=== PATIENT | female | born 1960 | race Caucasian/White ===

== ENCOUNTER 2021-01-30 09:29 | Outpatient (CLI) | payer BC, SELFPAY ==
--- NOTE | 2021-01-30 09:32 | CT_ITS ---
WS: [id number] LDCT LUNG CANCER SCREENING TECHNIQUE: Noncontrast CT of the chest with coronal and sagittal reformatted images. CLINICAL INFORMATION: NICOTINE DEPENDENCE, CIGARETTES COMPARISON: None. DLP: 51.02 mGy.cm DIvol: 1.[address] scans at [facility] use at least one of these dose optimization techniques: automat ed exposure control; mA and/or kV adjustment per patient size (includes targeted exams where dose is matched to clinical indication); or iterative reconstruction. FINDINGS: Small 5 mm semisolid opacity right lower lobe along the fissure. 4 mm hazy opacity left upper lobe. 3 mm noncalcified nodule left upper lobe. Noncalcified nodule right upper lobe measuring 4 mm. No axil brad lymphadenopathy. No mediastinal or hilar lymphadenopathy. Adrenal glands are normal. Small low-a ttenuation lesion in right liver likely cyst or hemangioma measuring 12 mm but incompletely evaluated . This could be further evaluated with contrast-enhanced CT abdomen pelvis. CT/CT lung screening [id number] IMPRESSION: LUNG-RADS: 3-Probably Benign FOLLOW UP: 6 Month LDCT
== END 2021-01-30 09:30 | disposition home or self-care (01) ==
LOC: RAD 09:31
PROVIDERS: PCP Family Medicine; Visit Provider Family Medicine
DX: Z12.2 Encounter for screening for malignant neoplasm of respiratory organs (principal); F17.210 Nicotine dependence, cigarettes, uncomplicated
CPT/HCPCS: 71271

== ENCOUNTER 2021-06-03 10:40 | Outpatient (CLI) | payer BC, SELFPAY ==
--- NOTE | 2021-06-03 11:09 | XR_ITS ---
WS: [id number] SCREENING DEXA SCAN [employer] CLINICAL INFORMATION: POST MENOPAUSAL COMPARISON: FINDINGS: The L1-L4 bone mineral density measures 1.302 g/cm2. This corresponds to a T score score of 1.0 and Z score of 2.1. Left femoral neck bone mineral density measures 1.147 g/cm2. This corresponds to a T score of 1.1 and Z score of 1.9. Right femoral neck bone mineral density measures 1.153 g/cm2. This corresponds to a T score 1.2of and Z score of 2.0. Mean femoral neck bone mineral density measures 1.150 g/cm2. This corresponds to a T score of 1.1 and Z score of 2.0. XR/XR DEXA axial skeleton* [id number] IMPRESSION: Normal bone mineralization. Patient's FRAX calculated 10 year probability for major osteoporotic fracture i s 12.4 % and osteoporotic hip fracture is 0.3%.
== END 2021-06-03 10:41 | disposition home or self-care (01) ==
PROVIDERS: PCP Family Medicine; Visit Provider Family Medicine
DX: Z78.0 Asymptomatic menopausal state (principal)
CPT/HCPCS: 77080

== ENCOUNTER 2023-02-17 09:18 | Observation (INO) | payer BC, SELFPAY ==
[2023-02-17] VITALS (8 sets, daily range): BP systolic 117–176; BP diastolic 69–94; PULSE 86–100; RESP 16–18; TEMP 36.4–36.5; O2SAT 95–99; BMI 25.4; BMI 24.2
--- NOTE | 2023-02-17 09:25 | W.ED.GENADLT ---
Documented by User: JULIA Queen 02/17/23 13:20 HPI - General Adult General: Chief complaint: Airway/Esophagus Foreign Body Stated complaint: object lodged in throat Time Seen by Provider: 02/17/23 09:21 Source: patient and family (daughter) Mode of arrival: ambulatory Limitations: no limitations History of Present Illness: Patient is a nice 62-year-old female who presents to ED today along with her daughter for concerns that she has an Advil pill stuck in her throat. Daughter states her mother has had intermittent episodes of vomiting over the past week or so. She states her, herself, has had a productive cough over the past 5 weeks or so and states her mother has recently came down with a cough as well. She feels like some of her vomiting is posttussive. Patient confirms this. She feels like maybe she is getting choked/gagged on phlegm. Daughter states since Thursday/Thursday vomiting has worsened and she hasn't been able to keep much down. She states she overall is feeling very poor. She does not complain of abdominal pain. No changes in bowel movements. No fevers. This morning she states she took an Advil tablet and immediately felt like it got stuck in her throat. She is very anxious about the sensation of a pill being stuck. She has no shortness of breath or difficulty breathing. States she was able to drink some water following the pill ingestion. Patient takes many medications for anxiety and sleep. She recently lost her to metastatic colon cancer and has been struggling since then. She does admit to drinking in the evenings to help her sleep. Onset (ago): hour(s) Severity: moderate Relieving factors: none Exacerbating factors: other (swallowing) Associated symptoms: Reports vomiting; Deny chest pain, dyspnea, headache(s), malaise, nausea, rash, palpitations or syncope Review of Systems Const: Denies: fever(s), chills, body aches, fatigue or malaise Eyes: Denies: change in vision or blurry vision ENMT: Reports: other (feels like a pill is stuck in her throat); Denies: throat pain or odynophagia Card: Denies: chest pain, palpitations, irregular heart rhythm, lightheadedness, syncope or dyspnea on exertion Resp: Reports: non-productive cough, change in phlegm color and chest congestion; Denies: dyspnea, productive cough, wheezing, stridor, pain on inspiration or hemoptysis GI: Reports: vomiting; Denies: abdominal pain, nausea, heartburn, diarrhea, GI cramping, hematochezia or melena : Denies: dysuria Musc: Denies: neck pain, back pain, extremity pain, extremity swelling or joint pain Skin/Breast: Denies: rash Neuro: Denies: headache(s), numbness in extremities, weakness in extremities, sensory changes or dizziness PFSH ED PFSH: Medical History Colonoscopy planned 2020 Hyperlipidemia Sleep disturbance Anxiety Surgical History H/O lateral meniscus repair of right knee History of removal of ovarian cyst Family History Mother Stroke Father Heart disease Myocardial infarction Sister Breast cancer Social History Smoking and tobacco/nicotine status: current every day tobacco/nicotine user cigarettes Packs smoked per day: 0.5 Years cigarettes smoked: 20 Alcohol intake: current Alcohol intake frequency: 0-2 Drinks per Day Alcohol type: beer and hard liquor Alcohol use comment: 1 beer and 1 shot of tequila every night Substance/Drug Use: never Lives independently: Yes Marital status: / Physical Exam Const: COMMON NORMALS: no acute distress, average body habitus, patient oriented x3, no limitations, healthy appearing, alert and well nourished GENERAL APPEARANCE: cooperative and anxious ORIENTATION/CONSCIOUSNESS: Yes awake, Yes oriented to person, Yes oriented to place and Yes oriented to time HENMT: COMMON NORMALS: normocephalic and atraumatic HEAD & SCALP: normal to inspection, normocephalic and atraumatic FACE & SINUS: normal facial exam MOUTH: Normal oral and palatal mucosa present, lip normal, tongue normal and Normal salivary glands and ducts present THROAT: posterior oropharynx normal Eye: GENERAL EYE: appearance normal, both eyes and all related structures Neck/C-Spine: COMMON NORMALS: full ROM, no lymphadenopathy, supple and no meningeal signs Chest: COMMONS NORMALS: normal inspection of the chest Resp: COMMON NORMALS: normal respiratory effort and clear to auscultation bilaterally AUSCULTATION: clear to auscultation bilaterally Cardio: COMMON NORMALS: regular rate and regular rhythm RATE: regular rate RHYTHM: regular rhythm GI: COMMON NORMALS: Normal to inspection, nondistended, normoactive bowel sounds present, Soft to palpation, non-tender, No hepatosplenomegaly present and no masses PALPATION: Yes Soft to palpation and Yes No hepatosplenomegaly present Extremity: COMMON NORMALS: normal to inspection GENERAL: Yes normal exam except as noted Neuro: COMMON NORMALS: patient oriented x3 SENSORIUM/ORIENTATION: Yes alert, Yes oriented to person, Yes oriented to place and Yes oriented to time MENINGEAL SIGNS: Yes no meningeal signs Skin: COMMON NORMALS: no rashes or lesions noted GENERAL SKIN EXAM: no rashes or lesions noted Course Vital Signs: Vital signs: Vital Signs Temperature 97.9 F 02/18/23 11:34 Pulse Rate 67 02/18/23 11:34 Respiratory Rate 16 02/18/23 11:34 Blood Pressure 149/90 02/18/23 11:34 Pulse Oximetry 98 02/18/23 11:34 Oxygen Delivery Me thod Room Air 02/18/23 03:27 [facility] - General Adult Medical Decision Making Patient is a nice 62-year-old female who initially presented with a concern of a pill stuck in her throat. No pill visualized on plain films. She was given IV medications and was drinking normally following this. She still has a mild foreign body sensation in her throat but no obstruction. Labs obtained given the history of nausea and vomiting over the past week. Labs showing thrombocytopenia, hyponatremia, metabolic acidosis with a gap of 32.5, and transaminitis. Patient will need to be admitted for further workup of these. She does admit to drinking in the evenings to help her sleep. She tells me she will have approximately a beer and a shot of hard liquor every night prior to bed. Patient is very anxious and I took a considerable amount of time trying to convince her to stay in the hospital. She reluctantly agrees at this time. I spoken to Dr. Schofield I spoke to Dr. Wiggins for admission. Lab Data 02/18/23 06:06 02/18/23 06:06 Radiology Impressions Chest X-Ray 02/17/23 09:32 IMPRESSION: No acute findings. Soft Tissue Neck X-Ray 02/17/23 10:42 IMPRESSION: 1. No acute findings. No retained radiopaque foreign body visualized along the imaged aerodigestive tract. 2. Moderate to severe multilevel cervical spine degenerative changes mildly progressed from April 2017. Laboratory Results WBC 12.74 10^3/uL (3.29-11.43) H 02/17/23 09:54 RBC 4.05 10^6/uL (3.85-5.65) 02/17/23 09:54 Hgb 14.40 g/dL (11.27-16.99) 02/17/23 09:54 Hct 39.4 % (36-47) 02/17/23 09:54 MCV 97.3 fl (85-98) 02/17/23 09:54 MCH 35.6 pg (27-33) H 02/17/23 09:54 MCHC 36.5 g/dL (30-55) 02/17/23 09:54 RDW 13.0 % (12.1-15.1) 02/17/23 09:54 Plt Count 120 10^3/cmm (157-399) L 02/17/23 09:54 MPV 10.9 fL (7.4-10.4) H 02/17/23 09:54 Neut % (Auto) 86.0 % 02/17/23 09:54 Lymph % (Auto) 3.8 % 02/17/23 09:54 [place] % (Auto) 9.7 % 02/17/23 09:54 Eos % (Auto) 0.0 % 02/17/23 09:54 Baso % (Auto) 0.2 % 02/17/23 09:54 Neut # (Auto) 10.96 10^3/uL (1.8-7.7) H 02/17/23 09:54 Lymph # (Auto) 0.5 10^3/uL (0.8-4.8) L 02/17/23 09:54 [place] # (Auto) 1.2 10^3/uL (0.2-0.9) H 02/17/23 09:54 Eos # (Auto) 0.0 10^3/uL (0.0-0.8) 02/17/23 09:54 Baso # (Auto) 0.0 10^3/uL (0.0-0.1) 02/17/23 09:54 Nucleated RBC % (auto) 0 % 02/17/23 09:54 Nucleated RBCs # 0.0 /100WBC 02/17/23 09:54 PT 12.30 SECONDS (12.1-14.9) 02/17/23 09:54 INR 0.89 (0.8-1.2) 02/17/23 09:54 APTT 23.3 SECONDS (23.9-36.7) L 02/17/23 09:54 Sodium 122 mmol/L (136-145) L 02/17/23 09:54 Potassium 3.5 mmol/L (3.5-5.1) 02/17/23 09:54 Chloride 75 mmol/L (98-107) L 02/17/23 09:54 Carbon Dioxide 18 mmol/L (22-29) L 02/17/23 09:54 Anion Gap 32.5 (5-19) H 02/17/23 09:54 BUN 5 mg/dL (8-23) L 02/17/23 09:54 Creatinine 0.7 mg/dL (0.5-0.9) 02/17/23 09:54 GFR Calculation 84.2 mL/min (90-130) L 02/17/23 09:54 Glucose 173 mg/dL (65-115) H 02/17/23 09:54 Calculated Osmolality 255 mOsm/kg (285-295) L 02/17/23 09:54 Calcium 9.4 mg/dL (8.5-10.5) 02/17/23 09:54 Magnesium 1.5 mg/dL (1.7-2.3) L 02/17/23 09:54 Total Bilirubin 1.4 mg/dL (0.15-1.2) H 02/17/23 09:54 AST 106 U/L (0-32) H 02/17/23 09:54 ALT 154 U/L (0-33) H 02/17/23 09:54 Alkaline Phosphatase 111 U/L (35-105) H 02/17/23 09:54 Ammonia 28 umol/L (11-51) 02/17/23 11:10 Total Protein 7.1 g/dL (6.6-8.7) 02/17/23 09:54 Albumin 4.7 g/dL (3.5-5.2) 02/17/23 09:54 Globulin 2.4 g/dL (1.3-4.6) 02/17/23 09:54 Lipase 19 U/L (13-60) 02/17/23 09:54 TSH 1.13 uIU/mL (0.27-4.20) 02/17/23 09:54 Urine Color Yellow (Yellow) 02/17/23 10:41 Urine Appearance Clear (CLEAR) 02/17/23 10:41 Urine pH 5 (5-7) 02/17/23 10:41 Ur Specific [place] 1.020 (1.005-1.030) 02/17/23 10:41 Urine Protein 1+ (Negative) H 02/17/23 10:41 Urine Glucose (UA) Norm (Normal) 02/17/23 10:41 Urine Ketones 3+ (Negative) H 02/17/23 10:41 Urine Blood 3+ (Negative) H 02/17/23 10:41 Urine Nitrate Negative (Negative) 02/17/23 10:41 Urine Bilirubin Neg (Negative) 02/17/23 10:41 Urine Urobilinogen Norm mg/dL (Negative) 02/17/23 10:41 Ur Leukocyte Esterase Negative (Negative) 02/17/23 10:41 Urine RBC 5-10 /hpf (0-2) H 02/17/23 10:41 Urine WBC None /hpf (0-5) 02/17/23 10:41 Ur Squamous Epith Cells 0-4 /hpf (0-5) H 02/17/23 10:41 Amorphous Sediment Not Reportable 02/17/23 10:41 Urine Bacteria None /hpf (NONE) 02/17/23 10:41 Hyaline Casts 0-4 /lpf H 02/17/23 10:41 Fine Granular Casts 0-4 /lpf H 02/17/23 10:41 Urine Mucus None /hpf 02/17/23 10:41 Urine Yeast Trace /hpf 02/17/23 10:41 Nasal Influ A H1 2008 PCR Not detected (NOT DETECT) 02/17/23 10:35 Salicylates < 0.3 mg/dL (3-10) L 02/17/23 09:54 Urine Opiates Screen Negative ng/mL (Negative) 02/17/23 10:41 Acetaminophen < 5.0 ug/mL (10-30) L 02/17/23 09:54 Ur Barbiturates Screen Negative ng/mL (Negative) 02/17/23 10:41 Ur Phencyclidine Scrn Negative ng/mL (Negative) 02/17/23 10:41 Ur Amphetamines Screen Negative ng/mL (Negative) 02/17/23 10:41 U Benzodiazepines Scrn Positive ng/mL (Negative) H 02/17/23 10:41 Urine Cocaine Screen Negative ng/mL (Negative) 02/17/23 10:41 U Marijuana (THC) Screen Negative ng/mL (Negative) 02/17/23 10:41 Ethyl Alcohol < 10 mg/dL (0-10) 02/17/23 09:54 Adenovirus (PCR) Not detected (NOT DETECT) 02/17/23 10:35 C. pneumoniae DNA (PCR) Not detected (NOT DETECT) 02/17/23 10:35 Coronavirus 229E (PCR) Not detected (NOT DETECT) 02/17/23 10:35 Hepatitis A IgM Ab Non-reactive (Nonreactive) 02/17/23 09:54 Hep Bs Antigen Non-reactive (Nonreactive) 02/17/23 09:54 Hep B Core IgM Ab Non-reactive (Nonreactive) 02/17/23 09:54 Hepatitis C Antibody Non-reactive (Nonreactive) 02/17/23 09:54 Human Metapneumovir PCR Not detected (NOT DETECT) 02/17/23 10:35 Influenza A (H1) PCR Not detected (NOT DETECT) 02/17/23 10:35 Influenza A (H3) PCR Not detected (NOT DETECT) 02/17/23 10:35 Influenza Type A (PCR) Not detected (NOT DETECT) 02/17/23 10:35 Influenza Type B (PCR) Not detected (NOT DETECT) 02/17/23 10:35 M. pneumoniae (PCR) Not detected (NOT DETECT) 02/17/23 10:35 Parainfluenza 1 (PCR) Not detected (NOT DETECT) 02/17/23 10:35 Parainfluenza 2 (PCR) Not detected (NOT DETECT) 02/17/23 10:35 Parainfluenza 3 (PCR) Not detected (NOT DETECT) 02/17/23 10:35 Parainfluenza 4 (PCR) Not detected (NOT DETECT) 02/17/23 10:35 RSV Type A (PCR) Not detected (NOT DETECT) 02/17/23 10:35 RSV Type B (PCR) Not detected (NOT DETECT) 02/17/23 10:35 Entero/Rhino (PCR) Not detected (NOT DETECT) 02/17/23 10:35 SARS-CoV-2 (PCR) Not detected (NOT DETECT) 02/17/23 10:35 SARS-CoV-2 Ag (Rapid) negative (Negative) 02/17/23 10:47 All radiology interpretation(s) finalized by discharge Discharge Plan Discharge Patient Disposition: Admitted As Inpatient Admit Provider: Víctor Wiggins Clinical Impression: Metabolic acidosis, Acute hyponatremia, Abnormal transaminases, Thrombocytopenia Condition: Stable Discharge Diet: Regular Discharge Activity: Increase activity as tolerated Coding Level of Care Code ED Bakery Assistant for Chg Fwd Documented by User: Gumaro Schofield DO 02/20/23 07:53 HPI - General Adult General: Chief complaint: Airway/Esophagus Foreign Body Stated complaint: object lodged in throat Time Seen by Provider: 02/17/23 09:21 [facility] PFSH: Medical History Colonoscopy planned 2020 Hyperlipidemia Sleep disturbance Anxiety Surgical History H/O lateral meniscus repair of right knee History of removal of ovarian cyst Family History Mother Stroke Father Heart disease Myocardial infarction Sister Breast cancer Social History Smoking and tobacco/nicotine status: current every day tobacco/nicotine user cigarettes Packs smoked per day: 0.5 Years cigarettes smoked: 20 Alcohol intake: current Alcohol intake frequency: 0-2 Drinks per Day Alcohol type: beer and hard liquor Alcohol use comment: 1 beer and 1 shot of tequila every night Substance/Drug Use: never Lives independently: Yes Marital status: / Course Vital Signs: Vital signs: Vital Signs Temperature 97.9 F 02/18/23 11:34 Pulse Rate 67 02/18/23 11:34 Respiratory Rate 16 02/18/23 11:34 Blood Pressure 149/90 02/18/23 11:34 Pulse Oximetry 98 02/18/23 11:34 Oxygen Delivery Me thod Room Air 02/18/23 03:27 MDM - General Adult Medical Decision Making Patient is a nice 62-year-old female who initially presented with a concern of a pill stuck in her throat. No pill visualized on plain films. She was given IV medications and was drinking normally following this. She still has a mild foreign body sensation in her throat but no obstruction. Labs obtained given the history of nausea and vomiting over the past week. Labs showing thrombocytopenia, hyponatremia, metabolic acidosis with a gap of 32.5, and transaminitis. Patient will need to be admitted for further workup of these. She does admit to drinking in the evenings to help her sleep. She tells me she will have approximately a beer and a shot of hard liquor every night prior to bed. Patient is very anxious and I took a considerable amount of time trying to convince her to stay in the hospital. She reluctantly agrees at this time. I spoken to Dr. Schofield I spoke to Dr. Wiggins for admission. Chart reviewed and patient discussed with midlevel. Agree with assessment and plan. Reviewed chart discussed with Ene Pride and with Dr. Worthy orders written for admission. Medical Records I reviewed the patient's medical records. Lab Data I reviewed the patient's lab results. 02/18/23 06:06 02/18/23 06:06 Radiology Impressions Chest X-Ray 02/17/23 09:32 IMPRESSION: No acute findings. Soft Tissue Neck X-Ray 02/17/23 10:42 IMPRESSION: 1. No acute findings. No retained radiopaque foreign body visualized along the imaged aerodigestive tract. 2. Moderate to severe multilevel cervical spine degenerative changes mildly progressed from April 2017. Laboratory Results WBC 12.74 10^3/uL (3.29-11.43) H 02/17/23 09:54 RBC 4.05 10^6/uL (3.85-5.65) 02/17/23 09:54 Hgb 14.40 g/dL (11.27-16.99) 02/17/23 09:54 Hct 39.4 % (36-47) 02/17/23 09:54 MCV 97.3 fl (85-98) 02/17/23 09:54 MCH 35.6 pg (27-33) H 02/17/23 09:54 MCHC 36.5 g/dL (30-55) 02/17/23 09:54 RDW 13.0 % (12.1-15.1) 02/17/23 09:54 Plt Count 120 10^3/cmm (157-399) L 02/17/23 09:54 MPV 10.9 fL (7.4-10.4) H 02/17/23 09:54 Neut % (Auto) 86.0 % 02/17/23 09:54 Lymph % (Auto) 3.8 % 02/17/23 09:54 [place] % (Auto) 9.7 % 02/17/23 09:54 Eos % (Auto) 0.0 % 02/17/23 09:54 Baso % (Auto) 0.2 % 02/17/23 09:54 Neut # (Auto) 10.96 10^3/uL (1.8-7.7) H 02/17/23 09:54 Lymph # (Auto) 0.5 10^3/uL (0.8-4.8) L 02/17/23 09:54 [place] # (Auto) 1.2 10^3/uL (0.2-0.9) H 02/17/23 09:54 Eos # (Auto) 0.0 10^3/uL (0.0-0.8) 02/17/23 09:54 Baso # (Auto) 0.0 10^3/uL (0.0-0.1) 02/17/23 09:54 Nucleated RBC % (auto) 0 % 02/17/23 09:54 Nucleated RBCs # 0.0 /100WBC 02/17/23 09:54 PT 12.30 SECONDS (12.1-14.9) 02/17/23 09:54 INR 0.89 (0.8-1.2) 02/17/23 09:54 APTT 23.3 SECONDS (23.9-36.7) L 02/17/23 09:54 Sodium 122 mmol/L (136-145) L 02/17/23 09:54 Potassium 3.5 mmol/L (3.5-5.1) 02/17/23 09:54 Chloride 75 mmol/L (98-107) L 02/17/23 09:54 Carbon Dioxide 18 mmol/L (22-29) L 02/17/23 09:54 Anion Gap 32.5 (5-19) H 02/17/23 09:54 BUN 5 mg/dL (8-23) L 02/17/23 09:54 Creatinine 0.7 mg/dL (0.5-0.9) 02/17/23 09:54 GFR Calculation 84.2 mL/min (90-130) L 02/17/23 09:54 Glucose 173 mg/dL (65-115) H 02/17/23 09:54 Calculated Osmolality 255 mOsm/kg (285-295) L 02/17/23 09:54 Calcium 9.4 mg/dL (8.5-10.5) 02/17/23 09:54 Magnesium 1.5 mg/dL (1.7-2.3) L 02/17/23 09:54 Total Bilirubin 1.4 mg/dL (0.15-1.2) H 02/17/23 09:54 AST 106 U/L (0-32) H 02/17/23 09:54 ALT 154 U/L (0-33) H 02/17/23 09:54 Alkaline Phosphatase 111 U/L (35-105) H 02/17/23 09:54 Ammonia 28 umol/L (11-51) 02/17/23 11:10 Total Protein 7.1 g/dL (6.6-8.7) 02/17/23 09:54 Albumin 4.7 g/dL (3.5-5.2) 02/17/23 09:54 Globulin 2.4 g/dL (1.3-4.6) 02/17/23 09:54 Lipase 19 U/L (13-60) 02/17/23 09:54 TSH 1.13 uIU/mL (0.27-4.20) 02/17/23 09:54 Urine Color Yellow (Yellow) 02/17/23 10:41 Urine Appearance Clear (CLEAR) 02/17/23 10:41 Urine pH 5 (5-7) 02/17/23 10:41 Ur Specific [place] 1.020 (1.005-1.030) 02/17/23 10:41 Urine Protein 1+ (Negative) H 02/17/23 10:41 Urine Glucose (UA) Norm (Normal) 02/17/23 10:41 Urine Ketones 3+ (Negative) H 02/17/23 10:41 Urine Blood 3+ (Negative) H 02/17/23 10:41 Urine Nitrate Negative (Negative) 02/17/23 10:41 Urine Bilirubin Neg (Negative) 02/17/23 10:41 Urine Urobilinogen Norm mg/dL (Negative) 02/17/23 10:41 Ur Leukocyte Esterase Negative (Negative) 02/17/23 10:41 Urine RBC 5-10 /hpf (0-2) H 02/17/23 10:41 Urine WBC None /hpf (0-5) 02/17/23 10:41 Ur Squamous Epith Cells 0-4 /hpf (0-5) H 02/17/23 10:41 Amorphous Sediment Not Reportable 02/17/23 10:41 Urine Bacteria None /hpf (NONE) 02/17/23 10:41 Hyaline Casts 0-4 /lpf H 02/17/23 10:41 Fine Granular Casts 0-4 /lpf H 02/17/23 10:41 Urine Mucus None /hpf 02/17/23 10:41 Urine Yeast Trace /hpf 02/17/23 10:41 Nasal Influ A H1 2008 PCR Not detected (NOT DETECT) 02/17/23 10:35 Salicylates < 0.3 mg/dL (3-10) L 02/17/23 09:54 Urine Opiates Screen Negative ng/mL (Negative) 02/17/23 10:41 Acetaminophen < 5.0 ug/mL (10-30) L 02/17/23 09:54 Ur Barbiturates Screen Negative ng/mL (Negative) 02/17/23 10:41 Ur Phencyclidine Scrn Negative ng/mL (Negative) 02/17/23 10:41 Ur Amphetamines Screen Negative ng/mL (Negative) 02/17/23 10:41 U Benzodiazepines Scrn Positive ng/mL (Negative) H 02/17/23 10:41 Urine Cocaine Screen Negative ng/mL (Negative) 02/17/23 10:41 U Marijuana (THC) Screen Negative ng/mL (Negative) 02/17/23 10:41 Ethyl Alcohol < 10 mg/dL (0-10) 02/17/23 09:54 Adenovirus (PCR) Not detected (NOT DETECT) 02/17/23 10:35 C. pneumoniae DNA (PCR) Not detected (NOT DETECT) 02/17/23 10:35 Coronavirus 229E (PCR) Not detected (NOT DETECT) 02/17/23 10:35 Hepatitis A IgM Ab Non-reactive (Nonreactive) 02/17/23 09:54 Hep Bs Antigen Non-reactive (Nonreactive) 02/17/23 09:54 Hep B Core IgM Ab Non-reactive (Nonreactive) 02/17/23 09:54 Hepatitis C Antibody Non-reactive (Nonreactive) 02/17/23 09:54 Human Metapneumovir PCR Not detected (NOT DETECT) 02/17/23 10:35 Influenza A (H1) PCR Not detected (NOT DETECT) 02/17/23 10:35 Influenza A (H3) PCR Not detected (NOT DETECT) 02/17/23 10:35 Influenza Type A (PCR) Not detected (NOT DETECT) 02/17/23 10:35 Influenza Type B (PCR) Not detected (NOT DETECT) 02/17/23 10:35 M. pneumoniae (PCR) Not detected (NOT DETECT) 02/17/23 10:35 Parainfluenza 1 (PCR) Not detected (NOT DETECT) 02/17/23 10:35 Parainfluenza 2 (PCR) Not detected (NOT DETECT) 02/17/23 10:35 Parainfluenza 3 (PCR) Not detected (NOT DETECT) 02/17/23 10:35 Parainfluenza 4 (PCR) Not detected (NOT DETECT) 02/17/23 10:35 RSV Type A (PCR) Not detected (NOT DETECT) 02/17/23 10:35 RSV Type B (PCR) Not detected (NOT DETECT) 02/17/23 10:35 Entero/Rhino (PCR) Not detected (NOT DETECT) 02/17/23 10:35 SARS-CoV-2 (PCR) Not detected (NOT DETECT) 02/17/23 10:35 SARS-CoV-2 Ag (Rapid) negative (Negative) 02/17/23 10:47 Discharge Plan Discharge Patient Disposition: Admitted As Inpatient Admit Provider: Víctor Wiggins Clinical Impression: Metabolic acidosis, Acute hyponatremia, Abnormal transaminases, Thrombocytopenia Condition: Stable Discharge Diet: Regular Discharge Activity: Increase activity as tolerated Coding Level of Care Code ED Bakery Assistant for Hitesh Yuan
--- NOTE | 2023-02-17 09:32 | XRR_ITS ---
PROCEDURE INFORMATION: Exam: XR Chest Exam date and time: 02/17/2023 9:52 AM Age: 62 years old Clinical indication: Cough TECHNIQUE: Imaging protocol: Radiologic exam of the chest. Views: 1 view. COMPARISON: CT lung screening [id number] 01/30/2021 9:41 AM FINDINGS: Lungs: Unremarkable. No consolidation. Pleural spaces: Unremarkable. No pleural effusion. No pneumothorax. Heart/Mediastinum: Unremarkable. No cardiomegaly. Bones/joints: Mild degenerative changes along the spine and shoulders. XR/XR chest 1V portable [id number] IMPRESSION: No acute findings.
[2023-02-17] MEDS: ondansetron 2 mg/ML SDV 2 mL 4 MG IVP (10:05)
[2023-02-17] MEDS: sodium chloride 0.9% 1,000 ML 999 ML IV (10:05)
[2023-02-17 10:09] LABS: Basophils % 0.2 %; Hematocrit 39.4 % (36-47); Lymphocytes # 0.5 10^3/uL (0.8-4.8); Lymphocytes % 3.8 %; Mean Corpuscular HGB Conc 36.5 g/dL (30-55); Mean Corpuscular Hemoglobin 35.6 pg (27-33); Mean Corpuscular Volume 97.3 fl (85-98); Mean Platelet Volume 10.9 fL (7.4-10.4); Monocytes # 1.2 10^3/uL (0.2-0.9); Monocytes % 9.7 %; Neutrophils # 10.96 10^3/uL (1.8-7.7); Nucleated Red Blood Cells % 0 %; Platelet Count 120 10^3/cmm (157-399); Red Blood Count 4.05 10^6/uL (3.85-5.65); White Blood Count 12.74 10^3/uL (3.29-11.43)
[2023-02-17] MEDS: LORazepam 2 mg/mL INJ 1 mL 1 MG IVP ×2 (10:10→11:58)
[2023-02-17] MEDS: glucagon 1 mg/mL KIT 1 mL IVP (10:13)
[2023-02-17 10:25] LABS: Alanine Aminotransferase 154 U/L (0-33); Albumin Level 4.7 g/dL (3.5-5.2); Alkaline Phosphatase 111 U/L (35-105); Anion Gap 32.5 (5-19); Aspartate Amino Transferase 106 U/L (0-32); Blood Urea Nitrogen 5 mg/dL (8-23); Calcium 9.4 mg/dL (8.5-10.5); Carbon Dioxide 18 mmol/L (22-29); Chloride 75 mmol/L (98-107); Globulin 2.4 g/dL (1.3-4.6); Glomerular Filtration Rate 84.2 mL/min (90-130); Glucose 173 mg/dL (65-115); Osmolality Calculated 255 mOsm/kg (285-295); Potassium 3.5 mmol/L (3.5-5.1); Sodium 122 mmol/L (136-145); Total Bilirubin 1.4 mg/dL (0.15-1.2); Total Protein 7.1 g/dL (6.6-8.7)
--- NOTE | 2023-02-17 10:42 | XRR_ITS ---
PROCEDURE INFORMATION: Exam: XR Soft Tissue Neck Exam date and time: 02/17/2023 10:55 AM Age: 62 years old Clinical indication: Screening exam; Other; Pill stuck in throat TECHNIQUE: Imaging protocol: Radiologic exam of the soft tissues of the neck. COMPARISON: 1. CR XR cervical spine 4-5V [id number] 04/23/2017 10:51 AM 2. CR XR chest 1V portable [id number] 02/17/2023 9:52 AM FINDINGS: Airway: Unremarkable. No abnormal narrowing. Soft tissues: Unremarkable. Normal epiglottis. Precervical soft tissues are unremarkable. No retained radiopaque foreign body visualized along the imaged aerodigestive tract. Bones/joints: Moderate to severe multilevel cervical spine degenerative changes. XR/XR soft tissue neck [id number] IMPRESSION: 1. No acute findings. No retained radiopaque foreign body visualized along the imaged aerodigestive tract. 2. Moderate to severe multilevel cervical spine degenerative changes mildly progressed from April 2017.
--- NOTE | 2023-02-17 11:02 | CT_ITS ---
WS: [id number] CT ABDOMEN AND PELVIS NONCONTRAST HISTORY: Abdominal pain TECHNIQUE: Imaging performed through the abdomen and pelvis. Coronal and sagittal reformats are submi tted. All CT scans at [facility] use at least one of these dose optimization techniques: auto mated exposure control; mA and/or kV adjustment per patient size (includes targeted exams where dose is matched to clinical indication); or iterative reconstruction. DLP: 339.04 mGy.cm COMPARISON: None available. Lower thorax: Emphysema at the lung bases. Normal size heart. Moderate hiatal hernia. Liver: Enlarged liver with marked low-attenuation from hepatic steatosis. No bile duct dilatation. Gallbladder: Normal gallbladder. No pericholecystic fluid or cholelithiasis. No gallbladder wall thic kening. Pancreas: Normal size and attenuation. Normal pancreatic duct. No pancreatitis or mass. Spleen: Normal. Adrenal glands: Normal. No mass. Right kidney: Normal size kidney with no mass or hydronephrosis. Left kidney: Normal size kidney with no mass or hydronephrosis. Aorta: Mild atherosclerosis aorta. No free fluid, intraperitoneal air or significant lymphadenopathy. GI tract: Marked distention of the stomach with fluid. There is minimal fluid distention of the small bowel. No obstructive pattern. The appendix is normal. No evidence for acute diverticulitis. Abdominal wall: Negative. No hernia. Pelvis: No free fluid in the pelvis. Urinary bladder is negative. Osseous structures: Thoracolumbar scoliosis and curvature. IMPRESSION: 1. Marked fluid distention of the stomach. Lesser amount of fluid distention of the small bowel. No obstructive pattern. Consider gastroenteritis. 2. Hepatomegaly and marked hepatic steatosis. 3. No ascites or free air.
[2023-02-17 11:06] LABS: Acetaminophen < 5.0 ug/mL (10-30); Alcohol Level < 10 mg/dL (0-10); Salicylate < 0.3 mg/dL (3-10)
[2023-02-17 11:09] LABS: INR 0.89 (0.8-1.2)
[2023-02-17 11:10] LABS: Partial Thromboplastin Time 23.3 SECONDS (23.9-36.7)
[2023-02-17 11:10] LABS: Amphetamines Screen Urine Negative (Negative); Barbiturates Screen Urine Negative (Negative); Benzodiazepines Screen Urine Positive (Negative); Cocaine Screen Urine Negative (Negative); Opiate Screen Urine Negative (Negative); PCP Screen Urine Negative (Negative); THC Screen Urine Negative (Negative)
[2023-02-17 11:13] LABS: Lipase 19 U/L (13-60)
[2023-02-17 11:14] LABS: SARS Covid-2 Antigen negative (Negative)
[2023-02-17 11:26] LABS: Add Urine Microscopic? YES; Bilirubin Urine Neg (Negative); Blood Urine 3+ (Negative); Glucose Urine UA Norm (Normal); Ketones Urine 3+ (Negative); Leukocyte Esterase Urine Negative (Negative); Nitrate Urine Negative (Negative); Protein Urine 1+ (Negative); Urine Appearance Clear (CLEAR); Urine Color Yellow (Yellow); Urobilinogen Urine Norm (Negative); pH Urine 5 (5-7)
[2023-02-17 11:30] LABS: Add Urine Culture? Yes; Fine Granular Casts Urine 0-4 /lpf; Hyaline Casts Urine 0-4 /lpf; Squamous Epithelial Cell Urine 0-4 /hpf (0-5)
[2023-02-17 11:40] LABS: Ammonia 28 umol/L (11-51)
[2023-02-17] MEDS: nicotine 21 mg Patch 1 PATCH TRANSDERMA (11:58)
--- NOTE | 2023-02-17 12:07 | P.HP_ITS ---
Documented by User: Emeterio Botellobernabe 02/17/23 12:41 Providers/Chief Complaint 2 Admitting Physician: Víctor Wiggins MD hospitalist Primary Care Provider: Davey Scott MD Chief Complaint: object lodged in throat History of Present Illness Patient is a 62-year-old female with a past medical history of anxiety, sleep disturbance, hyperlipidemia who presents the emergency room with object lodged in throat. Patient will be admitted to the hospital for further medical management of transaminitis, metabolic acidosis, acute hyponatremia, and potential alcohol withdrawal Patient reports that she took an Advil last night and reports that it was lodged in her throat. She was able to drink some water post ingestion of pill but continues to cough. States that she went to bed and continued to feel the Advil this morning lodged. After further evaluation by ER practitioner, patient reported that she has been having nausea and vomiting for the past 1-2 weeks and has also been choking and gagging on phlegm. Patient reports a productive cough for the past 5 weeks but reports clear sputum production. She denies any fevers, chest pain, abdominal pain. Does state that she has dizziness while standing that started today. States that she is unable to keep food or liquids down at this time due to nausea and vomiting and increased phlegm production. Also reports that she just does not feel hungry. She does report some nasal congestion but no headache at this time she has no pain generalized throughout. Does report that she drinks 1 beer and 1 shot of tequila every night to help me feel better and sleep better. Also reports severe/increased anxiety being at this particular hospital due to recent passing of her back in October 2022, as this is a major stressor for her. Denies SI/HI. While in the emergency room, chest x-ray revealed no acute findings. Soft tissue neck x-ray revealed no acute findings or foreign body visualized. Patient received 1 L normal saline bolus, 1 mg Ativan IV push for increased anxiety, Zofran 4 mg IV push, nicotine 21 mg patch. Due to concerns for transaminitis, metabolic acidosis, anxiety, acute hyponatremia, patient will be admitted for IV medications and further supportive care measures. Review of Systems 2 Narrative: Comprehensive 10 point ROS is negative except as noted in the corresponding HPI. Card: Denies: chest pain or palpitations Resp: Reports: productive cough; Denies: dyspnea, wheezing, hemoptysis or chest congestion GI: Reports: nausea and vomiting; Denies: abdominal pain or hematemesis Psych: Reports: anxiety and depression Medications/Allergies Home Medications Medication Instructions Recorded Confirmed Last Taken Type alprazolam 1 mg tablet 1 mg PO BID 02/17/23 02/17/23 Unknown History escitalopram oxalate 20 mg tablet 20 mg PO QAM 02/17/23 02/17/23 Unknown History ibuprofen 200 mg tablet 200 mg PO Q6H PRN Pain 02/17/23 02/17/23 02/16/23 History rosuvastatin 10 mg tablet 10 mg PO QAM 02/17/23 02/17/23 02/15/23 History zolpidem 10 mg tablet 10 mg PO BEDTIME 02/17/23 02/17/23 Unknown History Allergies Allergy/AdvReac Type Severity Reaction Status Date / Time No Known Allergies Allergy Verified 02/17/23 10:30 PFSH Acute 2 PFSH: Medical History Colonoscopy planned 2020 Hyperlipidemia Sleep disturbance Anxiety Surgical History H/O lateral meniscus repair of right knee History of removal of ovarian cyst Family History Mother Stroke Father Heart disease Myocardial infarction Sister Breast cancer Social History Smoking and tobacco/nicotine status: current every day tobacco/nicotine user cigarettes Packs smoked per day: 0.5 Years cigarettes smoked: 20 Alcohol intake: current Alcohol intake frequency: 0-2 Drinks per Day Alcohol type: beer and hard liquor Alcohol use comment: 1 beer and 1 shot of tequila every night Substance/Drug Use: never Lives independently: Yes Marital status: / Vitals/I&O/Wt Last Vital Signs Pulse 93 02/17/23 12:04 Resp 16 02/17/23 12:04 BP 151/84 02/17/23 12:04 Pulse Ox 97 02/17/23 12:04 O2 Del Method Room Air 02/17/23 12:04 02/16/23 02/17/23 02/17/23 22:59 06:59 14:59 Intake Total 1000 / 1000 Balance 1000 / 1000 Weight last 48 hrs Weight 58.967 kg Physical Exam 2 Narrative: General: Alert, able to answer questions appropriately, anxious Neck: Supple Lymph: No lymphadenopathy noted Chest: Normal upon inspection Respiratory: No acute distress, respirations even, lung sounds clear throughout Cardiac: RRR, no murmurs, peripheral pulses 2+ radial and dorsalis pedis. GI abdomen soft, nontender on palpation, active bowel sounds throughout deferred Extremity trace edema to lower extremity. Psych: Anxious, somewhat tearful, increase stressors about hospitalization, not homicidal or suicidal at this time. Neuro: Alert oriented x 4 Data 02/17/23 09:54 02/17/23 09:54 Other Labs: WBC 12.47 platelet count 120, sodium 122, chloride 75, anion gap 32.5, T. bili 1.4, AST 106, ALT 154, alk phos 111, Urine unremarkable Positive for benzos CXR: My impression: Per my interpretation, no acute findings Radiologist's impression: No acute findings Other Imaging: My impression: Per my interpretation no acute findings, or foreign objects Radiologist's impression: No acute findings or foreign objects. A&P Assessment and plan (1) Acute hyponatremia: Potentially caused from electrolyte abnormalities of alcohol abuse or recent nausea/vomiting. NS IV at 100 mL/hr. Replace electrolytes as needed. Will recheck BMP this afternoon. CBC, BMP, magnesium in AM. (2) Transaminitis: Most likely due to alcohol intake of 1 beer and 1 shot of tequila per patient per night. Will assess his CT abdomen pelvis without contrast STAT. TSH and acute hepatitis panel pending. Magnesium pending. CBC, CMP, Mag in am. (3) Metabolic acidosis: Most likely due to increased nausea and vomiting at home. Continue to monitor a.m. labs CBC, CMP, mag in a.m. (4) Thrombocytopenia: Platelet count 122. Daily monitoring with CBC. (5) Alcohol withdrawal: As per #2 CICT protocol (6) Tobacco abuse: Cessation discussed A nicotine transdermal patch Plan Plan as stated above. Awaiting results of CT abdomen and pelvis. Awaiting results of TSH and acute hepatitis panel. Will place patient on [facility] protocol for potential alcohol withdrawal symptoms. Patient will receive nicotine patch for tobacco withdrawal. Monitor CBC and CMP and mag in AM. Normal saline at 100 mL/h. DVT prophylaxis: PPI prophylaxis: Protonix IV every 12 hours CODE STATUS: In the event that patient cannot make decisions for herself, Cheryle (daughter), will make decisions for her. Coding Level of Care Code 00031 Diagnoses Acute hyponatremia E87.1 Transaminitis R74.01 Metabolic acidosis E87.20 Thrombocytopenia D69.6 Alcohol withdrawal F10.939 Tobacco abuse Z72.0 Time Spent (min) 50 Documented by User: Víctor Wiggins MD 02/17/23 12:57 Providers/Chief Complaint 2 Chief Complaint: object lodged in throat Medications/Allergies Home Medications Medication Instructions Recorded Confirmed Last Taken Type alprazolam 1 mg tablet 1 mg PO BID 02/17/23 02/17/23 Unknown History escitalopram oxalate 20 mg tablet 20 mg PO QAM 02/17/23 02/17/23 Unknown History ibuprofen 200 mg tablet 200 mg PO Q6H PRN Pain 02/17/23 02/17/23 02/16/23 History rosuvastatin 10 mg tablet 10 mg PO QAM 02/17/23 02/17/23 02/15/23 History zolpidem 10 mg tablet 10 mg PO BEDTIME 02/17/23 02/17/23 Unknown History Allergies Allergy/AdvReac Type Severity Reaction Status Date / Time No Known Allergies Allergy Verified 02/17/23 10:30 PFSH Acute 2 PFSH: Medical History Colonoscopy planned 2020 Hyperlipidemia Sleep disturbance Anxiety Surgical History H/O lateral meniscus repair of right knee History of removal of ovarian cyst Family History Mother Stroke Father Heart disease Myocardial infarction Sister Breast cancer Social History Smoking and tobacco/nicotine status: current every day tobacco/nicotine user cigarettes Packs smoked per day: 0.5 Years cigarettes smoked: 20 Alcohol intake: current Alcohol intake frequency: 0-2 Drinks per Day Alcohol type: beer and hard liquor Alcohol use comment: 1 beer and 1 shot of tequila every night Substance/Drug Use: never Lives independently: Yes Marital status: / Data 02/17/23 09:54 02/17/23 09:54 A&P Assessment and plan (1) Acute hyponatremia: Patient appears hypovolemic or euvolemic Potentially caused from electrolyte abnormalities of alcohol abuse or recent nausea/vomiting. NS IV at 100 mL/hr. Replace electrolytes as needed. Will recheck BMP this afternoon, approximately 3 to 4 hours after initiation of fluids CBC, BMP, magnesium in AM. Magnesium in the morning This may be secondary to her reports of recurrent vomiting, alcoholism. She denies any ethylene glycol or methanol ingestion. (2) Transaminitis: (3) Metabolic acidosis: (4) Thrombocytopenia: (5) Alcohol withdrawal: (6) Tobacco abuse: Plan Plan as stated above. Awaiting results of CT abdomen and pelvis. Awaiting results of TSH and acute hepatitis panel. Will place patient on [facility]WA protocol for potential alcohol withdrawal symptoms. Patient will receive nicotine patch for tobacco withdrawal. Monitor CBC and CMP and mag in AM. Normal saline at 100 mL/h. Feelings of dysphagia, pill stuck. Will have ENT consult Severe anxiety and depression. Discussed with her potential for counseling. Will have psychiatry evaluate her DVT prophylaxis: PPI prophylaxis: Protonix IV every 12 hours CODE STATUS: Full code currently. Discussed with patient and family Attestations 2 Medical Necessity Statement*: Will need less than 2 midnight stay for evaluation and treatment of hyponatremia Diagnoses Acute hyponatremia E87.1 Transaminitis R74.01 Metabolic acidosis E87.20 Thrombocytopenia D69.6 Alcohol withdrawal F10.939 Tobacco abuse Z72.0 Time Spent (min) 50
[2023-02-17 12:37] LABS: Magnesium 1.5 mg/dL (1.7-2.3); Thyroid Stimulating Hormone 1.13 uIU/mL (0.27-4.20)
[2023-02-17 12:41] LABS: Hepatitis A Antibody IgM Non-Reactive (Nonreactive); Hepatitis B Core IgM Non-Reactive (Nonreactive); Hepatitis B Surface Antigen Non-Reactive (Nonreactive); Hepatitis C Virus Antibody Non-Reactive (Nonreactive)
[2023-02-17 12:42] LABS: Adenovirus Not Detected (NOT DETECT); Chlamydia Pneumoniae Not Detected (NOT DETECT); Coronavirus 229E,HKU1,NL63,OC4 Not Detected (NOT DETECT); Human Metapneumovirus Not Detected (NOT DETECT); Human Rhinovirus/Enterovirus Not Detected (NOT DETECT); Influenza A Not Detected (NOT DETECT); Influenza A H1 Not Detected (NOT DETECT); Influenza A H1-2009 Not Detected (NOT DETECT); Influenza A H3 Not Detected (NOT DETECT); Influenza B Not Detected (NOT DETECT); Mycoplasma Pneumoniae Not Detected (NOT DETECT); Parainfluenza Virus Type 1 Not Detected (NOT DETECT); Parainfluenza Virus Type 2 Not Detected (NOT DETECT); Parainfluenza Virus Type 3 Not Detected (NOT DETECT); Parainfluenza Virus Type 4 Not Detected (NOT DETECT); Respiratory Syncytial Virus A Not Detected (NOT DETECT); Respiratory Syncytial Virus B Not Detected (NOT DETECT); SARS-COV-2 Not Detected (NOT DETECT)
--- NOTE | 2023-02-17 14:48 | P.CONIM_ITS ---
Providers/Reason For Consult 2 Consulting Physician/Specialty*: Dr. Darrel Bazzi MD Otolaryngology, Head & Neck Surgery Reason for Consult*: R/O Foreign body, upper aerodigestive tract Requesting Physician: Dr. Cole Wiggins MD Attending Physician: Víctor Wiggins MD Primary Care Provider: Davey Scott MD History of Present Illness History of Present Illness Alicia Morse is a 62 year old female who was well until yesterday when she took some Advil because she wasn't feeling well. The patient reports that since that time she has had a foreign body sensation in her throat and is concerned about a retained Advil tablet in her throat. The patient reports that this symptom is very bothersome to her. The patient is o/w without c/o. Review of Systems 2 General: Reports: 10 or more systems reviewed and unremarkable except in HPI and below Medications/Allergies Home Medications Medication Instructions Recorded Confirmed Last Taken Type alprazolam 1 mg tablet 1 mg PO BID 02/17/23 02/17/23 Unknown History escitalopram oxalate 20 mg tablet 20 mg PO QAM 02/17/23 02/17/23 Unknown History ibuprofen 200 mg tablet 200 mg PO Q6H PRN Pain 02/17/23 02/17/23 02/16/23 History rosuvastatin 10 mg tablet 10 mg PO QAM 02/17/23 02/17/23 02/15/23 History zolpidem 10 mg tablet 10 mg PO BEDTIME 02/17/23 02/17/23 Unknown History Allergies Allergy/AdvReac Type Severity Reaction Status Date / Time No Known Allergies Allergy Verified 02/17/23 10:30 PFSH Acute 2 PFSH: Medical History Colonoscopy planned 2020 Hyperlipidemia Sleep disturbance Anxiety Surgical History H/O lateral meniscus repair of right knee History of removal of ovarian cyst Family History Mother Stroke Father Heart disease Myocardial infarction Sister Breast cancer Social History Smoking and tobacco/nicotine status: current every day tobacco/nicotine user cigarettes Packs smoked per day: 0.5 Years cigarettes smoked: 20 Alcohol intake: current Alcohol intake frequency: 0-2 Drinks per Day Alcohol type: beer and hard liquor Alcohol use comment: 1 beer and 1 shot of tequila every night Substance/Drug Use: never Lives independently: Yes Marital status: / Vitals/I&O/Wt Last Vital Signs Pulse 86 02/17/23 14:04 Resp 17 02/17/23 14:04 BP 117/90 02/17/23 14:04 Pulse Ox 99 02/17/23 14:04 O2 Del Method Room Air 02/17/23 13:17 02/16/23 02/17/23 02/17/23 22:59 06:59 14:59 Intake Total 1000 / 1000 Balance 1000 / 1000 Weight last 48 hrs Weight 58.967 kg Physical Exam 2 Const: COMMON NORMALS: no acute distress, average body habitus and patient oriented x3 HENMT: COMMON NORMALS: normocephalic, atraumatic and Normal external nose present HEAD & SCALP: normocephalic and atraumatic FACE & SINUS: normal facial exam and sinuses nontender NOSE: Normal external nose present G ENERAL EAR: hearing grossly impaired MOUTH: Normal oral and palatal mucosa present and tongue normal THROAT: posterior oropharynx normal Eye: COMMON NORMALS: EOMs intact bilaterally and conjunctivae normal C ONJUNCTIVA: Yes conjunctivae normal Neck/C-Spine: COMMON NORMALS: full ROM, no lymphadenopathy and supple Lymph: LYMPHATIC: no lymphadenopathy noted Neuro: COMMON NORMALS: patient oriented x3 Data 02/17/23 09:54 02/17/23 09:54 A&P Assessment and plan (1) Laryngeal foreign body: Impression: 62 yo female with a c/o laryngeal foreign body symptoms of the throat with no obvious foreign body noted on flexible fiberoptic nasopharyngolaryngoscopy Plan: - Observation - Recommend that consider esophagoscopy with exam under anesthesia if the patient's symptoms do not resolve in the near future - Please contact me for any further questions Consult Attestations 2 Medical Necessity Statement: I was consulted to r/o an upper aerodigestive tract foreign body Procedures Procedure Narrative Fiberoptic Laryngoscopy: the nasal cavities are normal bilaterally; the nasopharynx, oralpharynx, hypopharynx, and larynx are normal; the valecula and pyriform sinueses are normal; the remainder of the base of tongue and laryngeal exams are normal without obvious foreign body noted. Coding Level of Care Code Acute Code for Chg Fwd Diagnoses Laryngeal foreign body T17.308A
[2023-02-17] MEDS: sodium chloride 0.9% 1,000 ML 100 ML IV (15:28)
[2023-02-17] MEDS: enoxaparin 40 mg/0.4 mL Syringe SUBCUT (15:32)
[2023-02-17] MEDS: pantoprazole 40 mg SDV IVP (15:32)
[2023-02-17] MEDS: LORazepam 2 mg Tablet PO (15:44)
[2023-02-17 17:44] LABS: Anion Gap 25.1 (5-19); Blood Urea Nitrogen 5 mg/dL (8-23); Calcium 8.8 mg/dL (8.5-10.5); Carbon Dioxide 19 mmol/L (22-29); Chloride 90 mmol/L (98-107); Glomerular Filtration Rate 100.6 mL/min (90-130); Glucose 89 mg/dL (65-115); Osmolality Calculated 269 mOsm/kg (285-295); Potassium 3.1 mmol/L (3.5-5.1); Sodium 131 mmol/L (136-145)
[2023-02-17] MEDS: magnesium sulfate premix 2 GM/50 ML PIGGYBACK IV (18:12)
[2023-02-17] MEDS: potassium chloride oral liq 20 mEq/15 mL UDC 40 MEQ PO (18:12)
[2023-02-17] MEDS: ALPRAZolam 0.5 mg Tablet 1 MG PO (18:13)
[2023-02-17] MEDS: phenol oral Spray 177 mL 3 SPRAY MUCOUS MEM (18:20)
[2023-02-17] MEDS: nystatin 100,000 unit/mL UDC 5 mL 500000 UNIT PO (20:48)
[2023-02-17] MEDS: zolpidem 5 mg Tablet 10 MG PO (20:48)
[2023-02-18] VITALS: BP 159/85; PULSE 103; RESP 18; TEMP 36.9; O2SAT 96
[2023-02-18] MEDS: chlordiazePOXIDE 25 mg Capsule 50 MG PO (00:02)
[2023-02-18] MEDS: pantoprazole 40 mg SDV IVP (03:26)
[2023-02-18 03:27] VITALS: BP 130/82; PULSE 78; RESP 16; TEMP 36.8; O2SAT 97
[2023-02-18] MEDS: escitalopram 10 mg Tablet 20 MG PO ×2 (05:58→12:34)
[2023-02-18 06:00] VITALS: PULSE 86
[2023-02-18 06:42] LABS: Basophils % 0.3 %; Eosinophils % 0.1 %; Hematocrit 38.2 % (36-47); Lymphocytes # 1.6 10^3/uL (0.8-4.8); Lymphocytes % 21.7 %; Mean Corpuscular HGB Conc 34.8 g/dL (30-55); Mean Corpuscular Hemoglobin 35.3 pg (27-33); Mean Corpuscular Volume 101.3 fl (85-98); Mean Platelet Volume 11.5 fL (7.4-10.4); Monocytes # 0.8 10^3/uL (0.2-0.9); Neutrophils # 4.78 10^3/uL (1.8-7.7); Neutrophils % 66.5 %; Nucleated Red Blood Cells % 0 %; Platelet Count 115 10^3/cmm (157-399); Red Blood Count 3.77 10^6/uL (3.85-5.65); Red Cell Distribution Width 13.4 % (12.1-15.1); White Blood Count 7.19 10^3/uL (3.29-11.43)
[2023-02-18 07:07] LABS: Alanine Aminotransferase 96 U/L (0-33); Albumin Level 4.1 g/dL (3.5-5.2); Alkaline Phosphatase 97 U/L (35-105); Anion Gap 21.2 (5-19); Aspartate Amino Transferase 68 U/L (0-32); Blood Urea Nitrogen 6 mg/dL (8-23); Carbon Dioxide 21 mmol/L (22-29); Chloride 98 mmol/L (98-107); Globulin 2.2 g/dL (1.3-4.6); Glomerular Filtration Rate 100.6 mL/min (90-130); Glucose 83 mg/dL (65-115); Magnesium 2.2 mg/dL (1.7-2.3); Osmolality Calculated 281 mOsm/kg (285-295); Potassium 3.2 mmol/L (3.5-5.1); Sodium 137 mmol/L (136-145); Total Bilirubin 0.8 mg/dL (0.15-1.2); Total Protein 6.3 g/dL (6.6-8.7)
[2023-02-18 07:17] VITALS: BP 138/82; PULSE 73; RESP 15; TEMP 36.7; O2SAT 98
[2023-02-18] MEDS: ALPRAZolam 0.5 mg Tablet 1 MG PO (08:19)
[2023-02-18] MEDS: folic acid 1 mg Tablet PO (08:19)
[2023-02-18] MEDS: nystatin 100,000 unit/mL UDC 5 mL 500000 UNIT PO ×2 (08:19→12:34)
[2023-02-18] MEDS: multivitamin therapeutic Tablet 1 TAB PO (08:19)
[2023-02-18] MEDS: thiamine 100 mg Tablet PO (08:19)
[2023-02-18] MEDS: sodium chloride 0.9% 1,000 ML 50 ML IV (09:48)
[2023-02-18] MEDS: potassium chloride oral liq 20 mEq/15 mL UDC 40 MEQ PO ×2 (09:49→12:34)
--- NOTE | 2023-02-18 10:08 | PC.CHAP ---
Pastoral Care Encounter/Spiritual Assessment Type of Contact [] Declined maintenance services dispatcher visit [] Patient/Family/Request visit [] Outpatient visit [] Follow-up visit [] Physician referral [] Code/Alert [x] Routine visit [] Staff referral [] Actively dying [] Patient sleeping [x] Family support [] [] Out of room [] Palliative care [] [] Receiving care in room [] Pre-surgical visit [] Trauma [] Long length of stay [] ICU visit [] Other: Relational/Emotional Strength [x] Patient feels connected with others/family/visitors/staff [] Distress [] Loneliness/isolation [] Abandonment Spirituality of Patient [] Person of Cici [] Attends Latter-Day of their Cici [x] Believes in Prayer [] Reads Bible or Synagogue materials [] There are Spiritual issues to be addressed Clam Shucker Interventions [x] Prayer [] Active listening [] Non-anxious presence [x] Spiritual/emotional support [] Crisis/trauma care [] Spiritual counseling [] Bereavement support [] Provided bereavement packet [] Provided Bible/devotional materials [] Provided toy/stuffed animal, coloring book to patient or family member [] Provided Communion [] Anointing/[place] [] Salvation [] Completed spiritual assessment [] Other: Impact on Illness or Injury [] Angry [] Fearful [] Anxious [] Often cries [] Exhaustion [] Unable to work [] Unable to attend mandaeism [] Unable to walk/stand [] Unable to read [] Unable to drive [] Unable to eat/drink [] Unable to sleep [] Unable to be with family [] Patient intubated [] Other: Summary Time spent with patient 15 min
[2023-02-18 11:34] VITALS: BP 149/90; PULSE 67; RESP 16; TEMP 36.6; O2SAT 98
--- NOTE | 2023-02-18 12:28 | P.NPUCON_ITS ---
Providers/Reason for Consult 2 Consulting Physican/Specialty*: Stephen Chino MD. Psychiatry. Reason for Consult*: Depression and anxiety. Attending Physician: Víctor Wiggins MD Primary Care Provider: Davey Scott MD Psych Consult HPI History of Present Illness Alicia Morse is a 62 year old female who presented to the emergency department with the following report: Chief complaint: Airway/Esophagus Foreign Body Stated complaint: object lodged in throat Time Seen by Provider: 02/17/23 09:21 Source: patient and family (daughter) Mode of arrival: ambulatory Limitations: no limitations History of Present Illness: Patient is a nice 62-year-old female who presents to ED today along with her daughter for concerns that she has an Advil pill stuck in her throat. Daughter states her mother has had intermittent episodes of vomiting over the past week or so. She states her, herself, has had a productive cough over the past 5 weeks or so and states her mother has recently came down with a cough as well. She feels like some of her vomiting is posttussive. Patient confirms this. She feels like maybe she is getting choked/gagged on phlegm. Daughter states since Thursday/Thursday vomiting has worsened and she hasn't been able to keep much down. She states she overall is feeling very poor. She does not complain of abdominal pain. No changes in bowel movements. No fevers. This morning she states she took an Advil tablet and immediately felt like it got stuck in her throat. She is very anxious about the sensation of a pill being stuck. She has no shortness of breath or difficulty breathing. States she was able to drink some water following the pill ingestion. Patient takes many medications for anxiety and sleep. She recently lost her to metastatic colon cancer and has been struggling since then. She does admit to drinking in the evenings to help her sleep. Onset (ago): hour(s) Severity: moderate Relieving factors: none Exacerbating factors: other (swallowing) Associated symptoms: Reports vomiting; Deny chest pain, dyspnea, headache(s), malaise, nausea, rash, palpitations or syncope Patient was admitted to [facility] for definitive treatment of those issues and concerns were raised about significant anxiety especially against the backdrop of drinking alcohol. Patient presents today reporting that she has no previous hospitalizations but finds herself in a very stressful situation given the recent loss of her and her increased drinking behavior along with the use of Xanax as her rescue medication for her anxiety. We had a fairly lengthy discussion about the impact of benzodiazepines on people as they age and increased risk for bad outcomes given that reality. She is currently on Lexapro 20 mg p.o. daily and we discussed the risks benefits and alternatives of her increasing the Lexapro to 30 mg p.o. daily with a plan to hopefully be able to back down on the Xanax. We had a lengthy discussion about a reasonable pattern of decreasing on Xanax to eliminate/reduce any risk of bad outcome with Xanax and we reviewed that until she was able to report the plan back to this card writer hand. We also discussed her talking to her outpatient provider about this plan so that person was aware as well. We reviewed the remainder of her psychosocial history which was noncontributory and is making any decisions as there were no concerns for lethality or need for inpatient psychiatric care. Meds Home Medications and Allergies Home Medications Medication Instructions Recorded Confirmed Last Taken Type alprazolam 1 mg tablet 1 mg PO BID 02/17/23 02/17/23 Unknown History rosuvastatin 10 mg tablet 10 mg PO QAM 02/17/23 02/17/23 02/15/23 History zolpidem 10 mg tablet 10 mg PO BEDTIME 02/17/23 02/17/23 Unknown History escitalopram oxalate 20 mg tablet 30 mg (1.5 x 20 mg) PO DAILY #45 02/18/23 Unknown Rx (Lexapro) tabs folic acid 1 mg tablet 1 mg PO DAILY #30 tabs 02/18/23 Unknown Rx multivitamin with folic acid 400 1 tab PO DAILY #30 tabs 02/18/23 Unknown Rx mcg tablet (Thera) pantoprazole 40 mg tablet,delayed 40 mg PO BID #60 tabs 02/18/23 Unknown Rx release (Protonix) thiamine mononitrate (vit B1) 100 100 mg PO DAILY #30 tabs 02/18/23 Unknown Rx mg tablet (Vitamin B-1 (mononitrate)) Allergies Allergy/AdvReac Type Severity Reaction Status Date / Time No Known Allergies Allergy Verified 02/17/23 10:30 Current Medications Current Medications Generic Name Dose Route Start Last Admin Trade Name Freq PRN Reason Stop Dose Admin Alprazolam 1 mg 12/05/23 18:00 02/18/23 08:19 Alprazolam 0.5 Mg Tablet PO 1 mg BID TOMMY Administration Chlordiazepoxide 50 mg 02/17/23 14:38 02/18/23 00:02 Chlordiazepoxide 25 Mg Capsule PO 50 mg Q4H PRN Administration ALC Protocol Enoxaparin Sodium 40 mg 02/17/23 14:38 02/17/23 15:32 Enoxaparin 40 Mg/0.4 Ml Syringe SUBCUT 40 mg Q24H TOMMY Administration Escitalopram Oxalate 20 mg 02/18/23 06:00 02/18/23 05:58 Escitalopram 10 Mg Tablet PO 20 mg QAM TOMMY Administration Folic Acid 1 mg 02/18/23 09:00 02/18/23 08:19 Folic Acid 1 Mg Tablet PO 1 mg DAILY TOMMY Administration Sodium Chloride 1,000 mls @ 50 mls/hr 02/17/23 14:38 02/18/23 09:48 Sodium Chloride 0.9% IV 50 mls/hr .Q20H TOMMY Administration Lorazepam 2 mg 02/17/23 14:38 02/17/23 15:44 Lorazepam 2 Mg Tablet PO 2 mg Q4H PRN Administration WITHDRAWAL Protocol Multivitamins Therapeutic 1 tab 02/18/23 09:00 02/18/23 08:19 Multivitamin Therapeutic Tablet PO 1 tab DAILY TOMMY Administration Nystatin 500,000 unit 02/17/23 17:00 02/18/23 08:19 Nystatin 100,000 Unit/Ml Udc 5 Ml PO 500,000 unit QID TOMMY Administration Pantoprazole Sodium 40 mg 02/17/23 14:38 02/18/23 03:26 Pantoprazole 40 Mg Sdv IVP 40 mg Q12H TOMMY Administration Phenol 3 spray 02/17/23 15:52 02/17/23 18:20 Phenol Oral [place] 177 Ml MUCOUS MEM 3 spray Q2H PRN Administration SORE THROAT Thiamine Mononitrate 100 mg 02/18/23 09:00 02/18/23 08:19 Thiamine 100 Mg Tablet PO 100 mg DAILY TOMMY Administration Zolpidem Tartrate 10 mg 02/17/23 21:00 02/17/23 20:48 Zolpidem 5 Mg Tablet PO 10 mg BEDTIME TOMMY Administration PFSH NPU 2 PFSH: Medical History (Updated 03/18/23 @ 08:01 by Stephen Chino MD) Colonoscopy planned 2020 Hyperlipidemia Sleep disturbance Anxiety Surgical History H/O lateral meniscus repair of right knee History of removal of ovarian cyst Family History Mother Stroke Father Heart disease Myocardial infarction Sister Breast cancer Social History Smoking and tobacco/nicotine status: current every day tobacco/nicotine user cigarettes Packs smoked per day: 0.5 Years cigarettes smoked: 20 Alcohol intake: current Alcohol intake frequency: 0-2 Drinks per Day Alcohol type: beer and hard liquor Alcohol use comment: 1 beer and 1 shot of tequila every night Substance/Drug Use: never Lives independently: Yes Marital status: / Mental Status Exam 2 MSE Comments: This is a well-nourished well-developed white female in hospital gown with adequate grooming and eye contact. No abnormal movements. Cooperative with exam in no acute distress. Speech was normal rate and volume. Mood described as somewhat anxious, affect congruent. Thought process organized. Thought content: Patient denied suicidal or homicidal ideation, there were no delusions reported or noted, she denied any auditory or visual hallucinations. Attention and concentration were intact and memory appeared reliable but none were formally tested. She is alert and oriented x 3. Insight, judgment and impulse control appeared fair. Vitals/I&O/Wt Last Vital Signs Temp 97.9 F 02/18/23 11:34 Pulse 67 02/18/23 11:34 Resp 16 02/18/23 11:34 BP 149/90 02/18/23 11:34 Pulse Ox 98 02/18/23 11:34 O2 Del Method Room Air 02/18/23 03:27 02/17/23 02/18/23 02/18/23 22:59 06:59 14:59 Intake Total 578.333 / 1578.333 711.667 / 711.667 Balance 578.333 / 1578.333 711.667 / 711.667 Weight last 48 hrs Weight 57.209 kg Weight 56.245 kg Weight 58.967 kg Data NPU 02/18/23 06:06 02/18/23 06:06 Micro: Microbiology 02/17/23 10:41 Urine Culture - Preliminary Urine,Clean Catch Microbiology 02/17/23 10:41 Urine,Clean Catch Urine Culture - Preliminary A&P Assessment and plan (1) Anxiety: (2) Bereavement: Plan This is a 62-year-old white female with a recent loss of her and significant anxiety currently on Lexapro and Xanax with concerns for increased drinking and long-term use of the Xanax. 1. Continue current medication. Except: 2. Recommend increase in Lexapro to 30 mg p.o. daily. 3. Recommend decreasing Xanax in a stepwise fashion starting with a decrease to 1.5 mg daily under outpatient doctors supervision. 4. No need for inpatient psychiatric care. 5. Agree with discharge as indicated. Attestations NPU 2 Medical Necessity Statement*: N/A. See primary team note for medical necessity. Coding Level of Care Code Acute Code for [facility] F[facility] Diagnoses Anxiety F41.9 Bereavement Z63.4
--- NOTE | 2023-02-18 13:04 | P.DS_ITS ---
Documented by User: Fang Ceja WADE STDNT 02/18/23 14:12 Discharge Providers Date of Admission: 02/17/23 13:22 Date of Discharge: February 18, 2023 Attending Provider at Admission: Víctor Wiggins MD Attending Provider at Discharge: Víctor Wiggins MD Consults: Stephen Chino MD Psychiatry Primary Care Provider: Davey Scott MD Diagnoses at Discharge Discharge Diagnosis (1) Laryngeal foreign body: Details from hospital stay: Mrs. Morse is a 62 year-old who presented to [facility] object lodged in her throat. She has not taking an Advil pill, and reported that it got stuck. She reported that she was having nausea and vomiting for the past 1 to 2 weeks before this event. Stating she had been choking and gagging on phlegm She reported she has had a productive cough for the last 5 weeks. She stated she drinks 1 beer and 1 shot of tequila every night, to help her feel better and sleep . Ms. Morse so also reported having increased to severe anxiety being in this hospital due to her passing away in October 2022. During Ms. Morse stay she received a chest x-ray and soft tissue neck x-ray revealing no acute findings or foreign body visualized. She was admittied to the medical surgical floor for transaminitis, metabolic acidosis, acute hyponatremia. During admission patient received treatment for the following listed: 1. Acute Hyponatremia with continuous IV fluids, replacement of electrolytes, and monitored BMP.2. Transaminitis with followup CT of abd pelvis w/o contrast demonstrating acute hepatitis panel, and TSH which was 3. Metabolic Acidosis we monitored labs daily- CBC, BMP, and mag. 4. Thrombocytopenia, monitored the CBC daily. 5.Tobacco abuse, nicotine patch ordered. 6. Alcohol withdrawl, CIWA protocol was placed. This morning patient was resting in bed on room air, denies SOB and chest pain. Patient was feeling significantly better states she does not have any N&V any more and even tried some gravy this morning, she was up by herself several times over night Patient was admitted electrolyte abnormality improved with IV fluids and hydration orally. ENT visited with the patient and saw no abnormality in the back of her throat, and feeling of globus went away with time. Psychiatry visited with the patient regarding anxiety and dose of Lexapro was adjusted and outpatient follow-up arranged. I discussed with her in depth tobacco abuse, alcohol abuse to try to decrease use. She will follow-up with her primary care provider and psychiatry as an outpatient. Liver function test did improve while she was in the hospital. CT of abdomen pelvis showed fatty liver but no evidence of obstruction or mass. She was able to ask questions, and agreed with plan. Status: Acute Reason for Visit Reason for Visit: object lodged in throat Discharge Data Studies Completed and Pending Completed Studies During Hospitalization Category Date Time Status CT abdomen pelvis wo con [id number] Stat Cat Scan 02/17/23 11:02 Completed XR chest 1V portable [id number] Urgent Exams 02/17/23 09:32 Completed XR soft tissue neck [id number] Stat Exams 02/17/23 10:42 Completed Pending at discharge Category Date Time Status Urine Culture Stat Lab 02/17/23 10:41 Results Radiology Impressions Chest X-Ray 02/17/23 09:32 IMPRESSION: No acute findings. Soft Tissue Neck X-Ray 02/17/23 10:42 IMPRESSION: 1. No acute findings. No retained radiopaque foreign body visualized along the imaged aerodigestive tract. 2. Moderate to severe multilevel cervical spine degenerative changes mildly progressed from April 2017. Laboratory Results WBC 7.19 10^3/uL (3.29-11.43) 02/18/23 06:06 RBC 3.77 10^6/uL (3.85-5.65) L 02/18/23 06:06 Hgb 13.30 g/dL (11.27-16.99) 02/18/23 06:06 Hct 38.2 % (36-47) 02/18/23 06:06 MCV 101.3 fl (85-98) H 02/18/23 06:06 MCH 35.3 pg (27-33) H 02/18/23 06:06 MCHC 34.8 g/dL (30-55) 02/18/23 06:06 RDW 13.4 % (12.1-15.1) 02/18/23 06:06 Plt Count 115 10^3/cmm (157-399) L 02/18/23 06:06 MPV 11.5 fL (7.4-10.4) H 02/18/23 06:06 Neut % (Auto) 66.5 % 02/18/23 06:06 Lymph % (Auto) 21.7 % 02/18/23 06:06 [place] % (Auto) 11.0 % 02/18/23 06:06 Eos % (Auto) 0.1 % 02/18/23 06:06 Baso % (Auto) 0.3 % 02/18/23 06:06 Neut # (Auto) 4.78 10^3/uL (1.8-7.7) 02/18/23 06:06 Lymph # (Auto) 1.6 10^3/uL (0.8-4.8) 02/18/23 06:06 [place] # (Auto) 0.8 10^3/uL (0.2-0.9) 02/18/23 06:06 Eos # (Auto) 0.0 10^3/uL (0.0-0.8) 02/18/23 06:06 Baso # (Auto) 0.0 10^3/uL (0.0-0.1) 02/18/23 06:06 Nucleated RBC % (auto) 0 % 02/18/23 06:06 Nucleated RBCs # 0.0 /100WBC 02/18/23 06:06 PT 12.30 SECONDS (12.1-14.9) 02/17/23 09:54 INR 0.89 (0.8-1.2) 02/17/23 09:54 APTT 23.3 SECONDS (23.9-36.7) L 02/17/23 09:54 Sodium 137 mmol/L (136-145) 02/18/23 06:06 Potassium 3.2 mmol/L (3.5-5.1) L 02/18/23 06:06 Chloride 98 mmol/L (98-107) 02/18/23 06:06 Carbon Dioxide 21 mmol/L (22-29) L 02/18/23 06:06 Anion Gap 21.2 (5-19) H 02/18/23 06:06 BUN 6 mg/dL (8-23) L 02/18/23 06:06 Creatinine 0.6 mg/dL (0.5-0.9) 02/18/23 06:06 GFR Calculation 100.6 mL/min (90-130) 02/18/23 06:06 Glucose 83 mg/dL (65-115) 02/18/23 06:06 Calculated Osmolality 281 mOsm/kg (285-295) L 02/18/23 06:06 Calcium 9.0 mg/dL (8.5-10.5) 02/18/23 06:06 Magnesium 2.2 mg/dL (1.7-2.3) 02/18/23 06:06 Total Bilirubin 0.8 mg/dL (0.15-1.2) 02/18/23 06:06 AST 68 U/L (0-32) H 02/18/23 06:06 ALT 96 U/L (0-33) H 02/18/23 06:06 Alkaline Phosphatase 97 U/L (35-105) 02/18/23 06:06 Ammonia 28 umol/L (11-51) 02/17/23 11:10 Total Protein 6.3 g/dL (6.6-8.7) L 02/18/23 06:06 Albumin 4.1 g/dL (3.5-5.2) 02/18/23 06:06 Globulin 2.2 g/dL (1.3-4.6) 02/18/23 06:06 Lipase 19 U/L (13-60) 02/17/23 09:54 TSH 1.13 uIU/mL (0.27-4.20) 02/17/23 09:54 Urine Color Yellow (Yellow) 02/17/23 10:41 Urine Appearance Clear (CLEAR) 02/17/23 10:41 Urine pH 5 (5-7) 02/17/23 10:41 Ur Specific Julian 1.020 (1.005-1.030) 02/17/23 10:41 Urine Protein 1+ (Negative) H 02/17/23 10:41 Urine Glucose (UA) Norm (Normal) 02/17/23 10:41 Urine Ketones 3+ (Negative) H 02/17/23 10:41 Urine Blood 3+ (Negative) H 02/17/23 10:41 Urine Nitrate Negative (Negative) 02/17/23 10:41 Urine Bilirubin Neg (Negative) 02/17/23 10:41 Urine Urobilinogen Norm mg/dL (Negative) 02/17/23 10:41 Ur Leukocyte Esterase Negative (Negative) 02/17/23 10:41 Urine RBC 5-10 /hpf (0-2) H 02/17/23 10:41 Urine WBC None /hpf (0-5) 02/17/23 10:41 Ur Squamous Epith Cells 0-4 /hpf (0-5) H 02/17/23 10:41 Amorphous Sediment Not Reportable 02/17/23 10:41 Urine Bacteria None /hpf (NONE) 02/17/23 10:41 Hyaline Casts 0-4 /lpf H 02/17/23 10:41 Fine Granular Casts 0-4 /lpf H 02/17/23 10:41 Urine Mucus None /hpf 02/17/23 10:41 Urine Yeast Trace /hpf 02/17/23 10:41 Nasal Influ A H1 2008 PCR Not detected (NOT DETECT) 02/17/23 10:35 Salicylates < 0.3 mg/dL (3-10) L 02/17/23 09:54 Urine Opiates Screen Negative ng/mL (Negative) 02/17/23 10:41 Acetaminophen < 5.0 ug/mL (10-30) L 02/17/23 09:54 Ur Barbiturates Screen Negative ng/mL (Negative) 02/17/23 10:41 Ur Phencyclidine Scrn Negative ng/mL (Negative) 02/17/23 10:41 Ur Amphetamines Screen Negative ng/mL (Negative) 02/17/23 10:41 U Benzodiazepines Scrn Positive ng/mL (Negative) H 02/17/23 10:41 Urine Cocaine Screen Negative ng/mL (Negative) 02/17/23 10:41 U Marijuana (THC) Screen Negative ng/mL (Negative) 02/17/23 10:41 Ethyl Alcohol < 10 mg/dL (0-10) 02/17/23 09:54 Adenovirus (PCR) Not detected (NOT DETECT) 02/17/23 10:35 C. pneumoniae DNA (PCR) Not detected (NOT DETECT) 02/17/23 10:35 Coronavirus 229E (PCR) Not detected (NOT DETECT) 02/17/23 10:35 Hepatitis A IgM Ab Non-reactive (Nonreactive) 02/17/23 09:54 Hep Bs Antigen Non-reactive (Nonreactive) 02/17/23 09:54 Hep B Core IgM Ab Non-reactive (Nonreactive) 02/17/23 09:54 Hepatitis C Antibody Non-reactive (Nonreactive) 02/17/23 09:54 Human Metapneumovir PCR Not detected (NOT DETECT) 02/17/23 10:35 Influenza A (H1) PCR Not detected (NOT DETECT) 02/17/23 10:35 Influenza A (H3) PCR Not detected (NOT DETECT) 02/17/23 10:35 Influenza Type A (PCR) Not detected (NOT DETECT) 02/17/23 10:35 Influenza Type B (PCR) Not detected (NOT DETECT) 02/17/23 10:35 M. pneumoniae (PCR) Not detected (NOT DETECT) 02/17/23 10:35 Parainfluenza 1 (PCR) Not detected (NOT DETECT) 02/17/23 10:35 Parainfluenza 2 (PCR) Not detected (NOT DETECT) 02/17/23 10:35 Parainfluenza 3 (PCR) Not detected (NOT DETECT) 02/17/23 10:35 Parainfluenza 4 (PCR) Not detected (NOT DETECT) 02/17/23 10:35 RSV Type A (PCR) Not detected (NOT DETECT) 02/17/23 10:35 RSV Type B (PCR) Not detected (NOT DETECT) 02/17/23 10:35 Entero/Rhino (PCR) Not detected (NOT DETECT) 02/17/23 10:35 SARS-CoV-2 (PCR) Not detected (NOT DETECT) 02/17/23 10:35 SARS-CoV-2 Ag (Rapid) negative (Negative) 02/17/23 10:47 Vitals Last Vital Signs Temp 97.9 F 02/18/23 11:34 Pulse 67 02/18/23 11:34 Resp 16 02/18/23 11:34 BP 149/90 02/18/23 11:34 Pulse Ox 98 02/18/23 11:34 O2 Del Method Room Air 02/18/23 03:27 Discharge Plan Discharge Patient Disposition: Home Condition: Stable Prescriptions: New folic acid 1 mg Tablet 1 mg PO DAILY Qty: 30 0RF Vitamin B-1 (mononitrate) 100 mg Tablet 100 mg PO DAILY Qty: 30 0RF Thera 400 mcg Tablet 1 tab PO DAILY Qty: 30 0RF Protonix 40 mg tablet,delayed release (DR/EC) 40 mg PO BID Qty: 60 0RF Lexapro 20 mg tablet 30 mg PO DAILY Qty: 45 0RF Continued alprazolam 1 mg tablet 1 mg PO BID zolpidem 10 mg tablet 10 mg PO BEDTIME rosuvastatin 10 mg tablet 10 mg PO QAM Discontinued ibuprofen 200 mg Tablet 200 mg PO Q6H PRN (Reason: Pain) escitalopram oxalate 20 mg tablet 20 mg PO QAM Discharge Orders: Discharge Order (Routine); Ordered 02/18/23 Ordered By: Víctor Wiggins Referrals: [facility] [Outside] (? Follow up as a walk in at [facility], walk in hours are Thursday-Thursday from 7:30AM-3:00PM, first come, first seen. Once you do this assessment you will be referred for appropriate services.) Davey Scott MD [Primary Care Provider] - 02/23/23 11:45 am () Discharge Diet: Regular Discharge Activity: Increase activity as tolerated Patient Instructions: Alcohol Abuse, Alcoholism, Folic Acid (By mouth), Pantoprazole (By mouth), Escitalopram (By mouth), Opioid Safety Activity Restrictions/Additional Instructions: Do not drink any alcohol Take medicine as prescribed No anti-inflammatories Follow-up with your primary care provider 3 to 5 days Referral to provide you are welcome Stop smoking Discharge Date/Time: 02/18/23 13:26 Coding Level of Care Code 24149 Diagnoses Laryngeal foreign body T17.308A Documented by User: Víctor Wiggins MD 02/18/23 13:59 Diagnoses at Discharge Discharge Diagnosis (1) Laryngeal foreign body: Details from hospital stay: Mrs. Morse is a 62 year-old who presented to [facility] object lodged in her throat. She has not taking an Advil pill, and reported that it got stuck. She reported that she was having nausea and vomiting for the past 1 to 2 weeks before this event. Stating she had been choking and gagging on phlegm She reported she has had a productive cough for the last 5 weeks. She stated she drinks 1 beer and 1 shot of tequila every night, to help her feel better and sleep . Ms. Morse so also reported having increased to severe anxiety being in this hospital due to her passing away in October 2022. During Ms. Morse stay she received a chest x-ray and soft tissue neck x-ray revealing no acute findings or foreign body visualized. She was admittied to [facility] medical surgical floor for transaminitis, metabolic acidosis, acute hyponatremia. During admission patient received treatment for the following listed: 1. Acute Hyponatremia with continuous IV fluids, replacement of electrolytes, and monitored BMP.2. Transaminitis with followup CT of abd pelvis w/o contrast demonstrating acute hepatitis panel, and TSH which was 3. Metabolic Acidosis we monitored labs daily- CBC, BMP, and mag. 4. Thrombocytopenia, monitored the CBC daily. 5.Tobacco abuse, nicotine patch ordered. 6. Alcohol withdrawl, CIWA protocol was placed. This morning patient was resting in bed on room air, denies SOB and chest pain. Patient was feeling significantly better states she does not have any N&V any more and even tried some gravy this morning, she was up by herself several times over night Patient was admitted electrolyte abnormality improved with IV fluids and hydration orally. ENT visited with the patient and saw no abnormality in the back of her throat, and feeling of globus went away with time. Psychiatry visited with the patient regarding anxiety and dose of Lexapro was adjusted and outpatient follow-up arranged. I discussed with her in depth tobacco abuse, alcohol abuse to try to decrease use. She will follow-up with her primary care provider and psychiatry as an outpatient. Liver function test did improve while she was in the hospital. CT of abdomen pelvis showed fatty liver but no evidence of obstruction or mass. She was able to ask questions, and agreed with plan Status: Acute Reason for Visit Reason for Visit: object lodged in throat Physical Exam Narrative: General exam no distress Neck supple no lymphadenopathy thyromegaly Cardiovascular regular rate and rhythm, no murmur Lungs clear Abdomen soft Extremities no cyanosis clubbing Discharge Plan Discharge Patient Disposition: Home Condition: Stable Prescriptions: New folic acid 1 mg Tablet 1 mg PO DAILY Qty: 30 0RF Vitamin B-1 (mononitrate) 100 mg Tablet 100 mg PO DAILY Qty: 30 0RF Thera 400 mcg Tablet 1 tab PO DAILY Qty: 30 0RF Protonix 40 mg tablet,delayed release (DR/EC) 40 mg PO BID Qty: 60 0RF Lexapro 20 mg tablet 30 mg PO DAILY Qty: 45 0RF Continued alprazolam 1 mg tablet 1 mg PO BID zolpidem 10 mg tablet 10 mg PO BEDTIME rosuvastatin 10 mg tablet 10 mg PO QAM Discontinued ibuprofen 200 mg Tablet 200 mg PO Q6H PRN (Reason: Pain) escitalopram oxalate 20 mg tablet 20 mg PO QAM Discharge Orders: Discharge Order (Routine); Ordered 02/18/23 Ordered By: Víctor Wiggins Referrals: [facility] [Outside] (? Follow up as a walk in at [facility], walk in hours are Thursday-Thursday from 7:30AM-3:00PM, first come, first seen. Once you do this assessment you will be referred for appropriate services.) Davey Scott MD [Primary Care Provider] - 02/23/23 11:45 am () Discharge Diet: Regular Discharge Activity: Increase activity as tolerated Patient Instructions: Alcohol Abuse, Alcoholism, Folic Acid (By mouth), Pantoprazole (By mouth), Escitalopram (By mouth), Opioid Safety Activity Restrictions/Additional Instructions: Do not drink any alcohol Take medicine as prescribed No anti-inflammatories Follow-up with your primary care provider 3 to 5 days Referral to provide you are welcome Stop smoking Discharge Date/Time: 02/18/23 13:26 Discharge Attestations Time Spent in Discharge Care*: greater than 30 min Quality Metrics Clinical Quality Measures [ No reported AMI, CVA or VTE this stay] Coding Level of Care Code 04645 Total time (in minutes) for Discharge: 40 Diagnoses Laryngeal foreign body T17.308A
== END 2023-02-18 13:26 | disposition home or self-care (01) ==
LOC: ER 11:51 → MEDSURG 13:25
PROVIDERS: Family Medicine; Admitting Provider Internal Medicine; Emergency Provider Physician Assistant; PCP Family Medicine; Visit Provider Internal Medicine
DX: T17.308A Unspecified foreign body in larynx causing other injury, initial encounter (principal); R74.01 Elevation of levels of liver transaminase levels; E87.20 Acidosis, unspecified; E87.1 Hypo-osmolality and hyponatremia; D69.6 Thrombocytopenia, unspecified; K76.0 Fatty (change of) liver, not elsewhere classified; E78.5 Hyperlipidemia, unspecified; F17.210 Nicotine dependence, cigarettes, uncomplicated; Z63.4 Disappearance and death of family member
CPT/HCPCS: 36415; 70360; 71045; 74176; 80048; 80053; 80074; 80306; 80307; 81001; 82140; 83690; 83735; 84443; 85025; 85610; 85730; 87086; 87426; 87486; 87581; 87633; 96361; 96372; 96374; 96375; 96376; 99285; C9113; G0378; J1610; J1650; J2060; J2405; J3411; J3475; J7030

== ENCOUNTER 2023-06-17 12:48 | Inpatient (IN) | payer BC, SELFPAY ==
[2023-06-17] VITALS (59 sets, daily range): BP systolic 86–136; BP diastolic 63–100; PULSE 88–147; RESP 11–33; TEMP 36.6–37.1; O2SAT 88–100; BMI 19.5; BMI 19.8
--- NOTE | 2023-06-17 12:53 | XR_ITS ---
WS: [id number] Examination: XR KUB portable [id number] Reason for Exam: constipation Date: June 17, 2023 Comparison: None. Findings: Air and stool are seen throughout the colon. There is a large amount of stool in the rectum. Mildly prominent small bowel gas is noted in the left abdomen. I see no evidence concerning for obstr uction. Impression: Air and stool are seen throughout the colon with mildly prominent small bowel gas in the left abdomen .
[2023-06-17 14:14] LABS: Basophils % 0.4 %; Eosinophils % 0.1 %; Hematocrit 41.9 % (36-47); Lymphocytes # 1.8 10^3/uL (0.8-4.8); Lymphocytes % 25.7 %; Mean Corpuscular HGB Conc 36.8 g/dL (30-55); Mean Corpuscular Hemoglobin 39.7 pg (27-33); Mean Platelet Volume 11.3 fL (7.4-10.4); Monocytes # 0.6 10^3/uL (0.2-0.9); Monocytes % 8.9 %; Neutrophils # 4.61 10^3/uL (1.8-7.7); Neutrophils % 64.5 %; Nucleated Red Blood Cells % 0 %; Platelet Count 195 10^3/cmm (157-399); Red Blood Count 3.88 10^6/uL (3.85-5.65); Red Cell Distribution Width 12.5 % (12.1-15.1); White Blood Count 7.16 10^3/uL (3.29-11.43)
[2023-06-17] MEDS: sodium chloride 0.9% 1,000 ML 999 ML IV (14:31)
[2023-06-17] MEDS: LORazepam 2 mg/mL INJ 10 mL MDV 1 MG IVP ×2 (14:33→15:06)
[2023-06-17 14:37] LABS: Alanine Aminotransferase 158 U/L (0-33); Albumin Level 3.9 g/dL (3.5-5.2); Alkaline Phosphatase 174 U/L (35-105); Anion Gap 26.9 (5-19); Aspartate Amino Transferase 189 U/L (0-32); Blood Urea Nitrogen 8 mg/dL (8-23); Calcium 8.8 mg/dL (8.5-10.5); Carbon Dioxide 20 mmol/L (22-29); Chloride 92 mmol/L (98-107); Creatinine Clr Calc Pharmacy 58.2472; Glomerular Filtration Rate 84.2 mL/min (90-130); Glucose 87 mg/dL (65-115); Lipase 55 U/L (13-60); Osmolality Calculated 278 mOsm/kg (285-295); Potassium 3.9 mmol/L (3.5-5.1); Sodium 135 mmol/L (136-145); Total Bilirubin 0.7 mg/dL (0.15-1.2); Total Protein 5.9 g/dL (6.6-8.7)
[2023-06-17 14:49] LABS: Alcohol Level 144 mg/dL (0-10)
[2023-06-17 14:51] LABS: Acetaminophen < 5.0 ug/mL (10-30); Salicylate < 0.3 mg/dL (3-10)
--- NOTE | 2023-06-17 16:04 | ED_ITS ---
HPI - Weakness 2 General: Chief complaint: Weakness Stated complaint: dehydrated, no urine/bowel movement Time Seen by Provider: 06/17/23 13:45 Source: patient Mode of arrival: ambulatory History of Present Illness: 62-year-old female presents emergency ro om with severe anxiety. Patient has a prolonged grief reaction with loss of her from last summer. She has began drinking alcohol pretty regularly. She is tremulous and tachycardic on arrival she tells me she is not had anything to drink for a couple of days. She has been eating or drinking to the point where she had an EGD last week to further evaluate we do not have access to the results but family reports that there was no significant finding. She has had a lot of vomiting the last several weeks. She denies any hematemesis or coffee-ground emesis no melena no hematochezia. She admits to drinking regularly and not eating much the last several months. Since loss of her she has lost 50 to 60 pounds. Family at the bedside endorses that she has been drinking regularly. She tells me she only drinks 3-4 6 ounce glasses of wine per day. She states over the last couple of weeks she is actually cut back some. Initially only seen the patient she tells me that her last drink was yesterday. She only had a couple of drinks yesterday. She only drinks wine. She denies use of any other drugs. She is prescribed Xanax and Ambien which she takes regularly. Family reports confidentially that she has been more irritable in the last several months since the loss of her . She has had significant mood swings and at times anger outburst towards family members which is very atypical of her. Complaint: generalized weakness Onset (ago): month(s) Duration: constant Location: generalized Relieving factors: none Exacerbating factors: none Associated symptoms: Reports decreased appetite, nausea and vomiting; Denies chest pain, chills, confusion, melena, diaphoresis, dysuria, easy bruising, fever(s), headache(s), myalgias, rash, short of breath or syncope Review of Systems 2 Const: Denies: fever(s), chills or diaphoresis Card: Denies: chest pain or syncope Resp: Denies: dyspnea GI: Reports: nausea and vomiting; Denies: abdominal pain or melena : Denies: flank pain, dysuria, urinary frequency or urinary urgency Musc: Denies: neck pain or back pain Skin/Breast: Denies: rash Neuro: Denies: headache(s) or confusion Psych: Reports: anxiety, depression and irritability Tacos/Lymph: Denies: easy bruising PFSH ED 2 PFSH: Medical History Colonoscopy planned 2020 Hyperlipidemia Sleep disturbance Anxiety Surgical History H/O lateral meniscus repair of right knee History of removal of ovarian cyst Family History Mother Stroke Father Heart disease Myocardial infarction Sister Breast cancer Social History Smoking and tobacco/nicotine status: current every day tobacco/nicotine user cigarettes Packs smoked per day: 0.5 Years cigarettes smoked: 20 Alcohol intake: current Alcohol intake frequency: 0-2 Drinks per Day Alcohol type: beer and hard liquor Substance/Drug Use: never Lives independently: Yes Marital status: / Physical Exam 2 Const: GENERAL APPEARANCE: cooperative and comfortable O RIENTATION/CONSCIOUSNESS: Yes awake, Yes oriented to person, Yes oriented to place and Yes oriented to time HENMT: COMMON NORMALS: normocephalic, atraumatic and hearing grossly normal bilaterally HEAD & SCALP: normocephalic and atraumatic Resp: COMMON NORMALS: normal respiratory effort, No retractions, No use of accessory muscles and clear to auscultation bilaterally AUSCULTATION: clear to auscultation bilaterally Cardio: COMMON NORMALS: regular rhythm and No murmurs present (Cardio) R ATE: tachycardic RHYTHM: regular rhythm GI: COMMON NORMALS: Soft to palpation and No hepatosplenomegaly present A USCULTATION: Yes normoactive bowel sounds PALPATION: Yes Soft to palpation, No Tenderness to palpation present (GI), No Guarding due to palpation present (GI) and Yes No hepatosplenomegaly present Extremity: COMMON NORMALS: normal to inspection, capillary refill normal, no clubbing, cyanosis or edema, no calf tenderness and no pedal edema Neuro: SENSORIUM/ORIENTATION: Yes oriented to person, Yes oriented to place and Yes oriented to time OTHER: Tremulous voice tremors in all extremities. No focal neurologic deficits. Skin: COMMON NORMALS: no rashes or lesions noted GENERAL SKIN EXAM: no rashes or lesions noted Course 2 Vital Signs: Vital signs: Vital Signs Temperature 97.8 F 06/17/23 13:11 Pulse Rate 147 H 06/17/23 16:00 Respiratory Rate 18 06/17/23 16:00 Blood Pressure 115/76 06/17/23 16:00 Pulse Oximetry 95 06/17/23 15:55 Oxygen Delivery Me thod Room Air 06/17/23 14:55 MDM - Weakness Medical Decision Making Patient actively withdrawing with a blood alcohol of 144. Additionally she has significant metabolic acidosis likely from alcohol use and starvation. Liver functions markedly elevated T. bili is normal. She has an anion gap of 27 hemoglobin is normal but she does have macrocytosis. Discussed with the patient given she has physical exam findings and vital signs finding suggestive of withdrawal blood alcohol of 144 suspect she may be underestimating her alcohol intake. Recommend that we admit for alcohol withdrawal. She has not had seizures in the past but she has not tried to limit her drinking. Additionally I think she needs psychiatric evaluation for prolonged grief disorder. Patient and family are in agreement. Discussed Dr. Rashid will admit to ICU with a [facility] protocol Medical Records I reviewed the patient's medical records. Lab Data I reviewed the patient's lab results. 06/17/23 13:29 06/17/23 13:29 Laboratory Results WBC 7.16 10^3/uL (3.29-11.43) 06/17/23 13:29 RBC 3.88 10^6/uL (3.85-5.65) 06/17/23 13:29 Hgb 15.40 g/dL (11.27-16.99) 06/17/23 13:29 Hct 41.9 % (36-47) 06/17/23 13:29 MCV 108.0 fl (85-98) H 06/17/23 13:29 MCH 39.7 pg (27-33) H 06/17/23 13:29 MCHC 36.8 g/dL (30-55) 06/17/23 13:29 RDW 12.5 % (12.1-15.1) 06/17/23 13:29 Plt Count 195 10^3/cmm (157-399) 06/17/23 13:29 MPV 11.3 fL (7.4-10.4) H 06/17/23 13:29 Neut % (Auto) 64.5 % 06/17/23 13:29 Lymph % (Auto) 25.7 % 06/17/23 13:29 [place] % (Auto) 8.9 % 06/17/23 13:29 Eos % (Auto) 0.1 % 06/17/23 13:29 Baso % (Auto) 0.4 % 06/17/23 13:29 Neut # (Auto) 4.61 10^3/uL (1.8-7.7) 06/17/23 13:29 Lymph # (Auto) 1.8 10^3/uL (0.8-4.8) 06/17/23 13:29 [place] # (Auto) 0.6 10^3/uL (0.2-0.9) 06/17/23 13:29 Eos # (Auto) 0.0 10^3/uL (0.0-0.8) 06/17/23 13:29 Baso # (Auto) 0.0 10^3/uL (0.0-0.1) 06/17/23 13:29 Nucleated RBC % (auto) 0 % 06/17/23 13: Nucleated RBCs # 0.0 /100WBC 06/17/23 13:29 Sodium 135 mmol/L (136-145) L 06/17/23 13:29 Potassium 3.9 mmol/L (3.5-5.1) 06/17/23 13:29 Chloride 92 mmol/L (98-107) L 06/17/23 13:29 Carbon Dioxide 20 mmol/L (22-29) L 06/17/23 13:29 Anion Gap 26.9 (5-19) H 06/17/23 13:29 BUN 8 mg/dL (8-23) 06/17/23 13:29 Creatinine 0.7 mg/dL (0.5-0.9) 06/17/23 13:29 GFR Calculation 84.2 mL/min (90-130) L 06/17/23 13:29 Glucose 87 mg/dL (65-115) 06/17/23 13:29 Calculated Osmolality 278 mOsm/kg (285-295) L 06/17/23 13:29 Calcium 8.8 mg/dL (8.5-10.5) 06/17/23 13:29 Total Bilirubin 0.7 mg/dL (0.15-1.2) 06/17/23 13:29 AST 189 U/L (0-32) H 06/17/23 13:29 ALT 158 U/L (0-33) H 06/17/23 13:29 Alkaline Phosphatase 174 U/L (35-105) H 06/17/23 13:29 Total Protein 5.9 g/dL (6.6-8.7) L 06/17/23 13:29 Albumin 3.9 g/dL (3.5-5.2) 06/17/23 13:29 Globulin 2.0 g/dL (1.3-4.6) 06/17/23 13:29 Lipase 55 U/L (13-60) 06/17/23 13:29 Salicylates < 0.3 mg/dL (3-10) L 06/17/23 13:29 Acetaminophen < 5.0 ug/mL (10-30) L 06/17/23 13:29 Ethyl Alcohol 144 mg/dL (0-10) H 06/17/23 13:29 All radiology interpretation(s) finalized by discharge Discharge Plan Discharge Patient Disposition: Admitted As Inpatient Clinical Impression: Alcohol withdrawal syndrome, Transaminitis, Chronic alcohol abuse, Prolonged grief reaction, Metabolic acidosis Condition: Stable Prescriptions: No Action alprazolam 1 mg tablet 1 mg PO BID zolpidem 10 mg tablet 10 mg PO BEDTIME rosuvastatin 10 mg tablet 10 mg PO QPM folic acid 1 mg Tablet 1 mg PO DAILY Qty: 30 0RF thiamine mononitrate (vit B1) [Vitamin B-1 (mononitrate)] 100 mg Tablet 100 mg PO DAILY Qty: 30 0RF multivitamin with folic acid [Thera] 400 mcg Tablet 1 tab PO DAILY Qty: 30 0RF escitalopram oxalate [Lexapro] 20 mg tablet 30 mg PO DAILY Qty: 45 0RF Protonix 40 mg tablet,delayed release (DR/EC) 40 mg PO BID PRN (Reason: Acid Reflux) Referrals: Davey Scott MD [Primary Care Provider] - Coding Level of Care Code ED [facility] for [facility]
--- NOTE | 2023-06-17 16:53 | P.HP_ITS ---
Providers/Chief Complaint 2 Admitting Physician: Rosana Rashid MD Primary Care Provider: Davey Scott MD Chief Complaint: dehydrated, no urine/bowel movement History of Present Illness Alicia Morse is a 62 year old female with a past medical history of anxiety, sleep disturbance, hyperlipidemia, h/o alcohol dependence , admission in feb 2023 for severe anxiety who is presenting to the ER today for excessive nausea, vomiting and poor po intake. Family reports that she has had significant mood swings and anger outburst recently. On her last admission she had endorsed consuming 1 beer and 1 shot of tequila every night. Today she reported consumption of wine only. She was noted to drink being last night. Blood alcohol level currently at 140. She reports that she started drinking excessively after the passing of her . Since then she has also been having progressive weight loss and poor p.o. intake. She had an EGD recently with her primary care physician, results of which are not currently available. Review of Systems 2 General: Reports: 10 or more systems reviewed and unremarkable except in HPI and below Const: Reports: body aches; Denies: fever(s) or chills Eyes: Denies: change in vision, blurry vision or photophobia ENMT: Reports: hoarseness; Denies: throat pain, enlarged tonsils, odynophagia or nasal congestion Card: Reports: palpitations; Denies: chest pain, irregular heart rhythm, edema, swelling of feet/ankles, lightheadedness, pre-syncope, dyspnea on exertion or orthopnea Resp: Reports: dyspnea; Denies: productive cough, non-productive cough, wheezing, stridor, pain on inspiration, change in phlegm color, hemoptysis or chest congestion GI: Reports: nausea and vomiting; Denies: abdominal pain, hematemesis, coffee ground emesis, dysphagia, heartburn, diarrhea, constipation, GI cramping, change in stool character, hematochezia or melena : Denies: flank pain, difficulty voiding, dysuria, urinary frequency, urinary urgency, urinary hesitancy or hematuria Musc: Denies: neck pain, back pain, extremity pain, joint swelling, joint warmth or deformity Neuro: Denies: headache(s), numbness in extremities, weakness in extremities, sensory changes, difficulty walking, frequent falls, dizziness, vertigo, behavioral changes, Slurred speech present or seizure-like activity Psych: Denies: anxiety, depression, suicidal ideation or homicidal ideation Endo: Denies: polyuria, polydipsia, tired all the time, cold intolerance or hot flashes Tacos/Lymph: Denies: easy bruising or easy bleeding Medications/Allergies Home Medications Medication Instructions Recorded Confirmed Last Taken Type alprazolam 1 mg tablet 1 mg PO BID 02/17/23 06/17/23 Unknown History rosuvastatin 10 mg tablet 10 mg PO QPM 02/17/23 06/17/23 02/15/23 History zolpidem 10 mg tablet 10 mg PO BEDTIME 02/17/23 06/17/23 Unknown History escitalopram oxalate 20 mg tablet 30 mg (1.5 x 20 mg) PO DAILY #45 02/18/23 06/17/23 Unknown Rx (Lexapro) tabs folic acid 1 mg tablet 1 mg PO DAILY #30 tabs 02/18/23 06/17/23 Unknown Rx multivitamin with folic acid 400 1 tab PO DAILY #30 tabs 02/18/23 06/17/23 Unknown Rx mcg tablet (Thera) thiamine mononitrate (vit B1) 100 100 mg PO DAILY #30 tabs 02/18/23 06/17/23 Unknown Rx mg tablet (Vitamin B-1 (mononitrate)) pantoprazole 40 mg tablet,delayed 40 mg PO BID PRN Acid Reflux 06/17/23 06/17/23 Unknown History release (Protonix) Allergies Allergy/AdvReac Type Severity Reaction Status Date / Time No Known Allergies Allergy Verified 06/17/23 13:16 PFSH Acute 2 PFSH: Medical History Colonoscopy planned 2020 Hyperlipidemia Sleep disturbance Anxiety Surgical History H/O lateral meniscus repair of right knee History of removal of ovarian cyst Family History Mother Stroke Father Heart disease Myocardial infarction Sister Breast cancer Social History Smoking and tobacco/nicotine status: current every day tobacco/nicotine user cigarettes Packs smoked per day: 0.5 Years cigarettes smoked: 20 Alcohol intake: current Alcohol intake frequency: 0-2 Drinks per Day Alcohol type: beer and hard liquor Substance/Drug Use: never Lives independently: Yes Marital status: / Vitals/I&O/Wt Last Vital Signs Temp 97.8 F 06/17/23 13:11 Pulse 97 06/17/23 16:50 Resp 23 H 06/17/23 16:50 BP 108/77 06/17/23 16:50 Pulse Ox 93 06/17/23 16:50 O2 Del Method Room Air 06/17/23 16:20 Weight last 48 hrs Weight 45.359 kg Physical Exam 2 Narrative: General: No acute distress, AO x3 HEENT: PERRLA, pupils bilaterally equal and reactive, pallors not present Chest: Normal vesicular breath sounds, no added sounds, equal good air entry bilaterally CVS: S1-S2 regular, no murmurs, no tachycardia, no gallops, no rubs Abdomen: Soft, nontender, no organomegaly, bowel sounds present Neuro: No focal deficits, no facial deformity, AO x3, power 5/5 in all limbs Data 06/17/23 13:29 06/17/23 13:29 Other Labs: Laboratory Results WBC 7.16 10^3/uL (3.29-11.43) 06/17/23 13:29 RBC 3.88 10^6/uL (3.85-5.65) 06/17/23 13:29 Hgb 15.40 g/dL (11.27-16.99) 06/17/23 13:29 Hct 41.9 % (36-47) 06/17/23 13:29 MCV 108.0 fl (85-98) H 06/17/23 13:29 MCH 39.7 pg (27-33) H 06/17/23 13:29 MCHC 36.8 g/dL (30-55) 06/17/23 13:29 RDW 12.5 % (12.1-15.1) 06/17/23 13:29 Plt Count 195 10^3/cmm (157-399) 06/17/23 13:29 MPV 11.3 fL (7.4-10.4) H 06/17/23 13:29 Neut % (Auto) 64.5 % 06/17/23 13:29 Lymph % (Auto) 25.7 % 06/17/23 13:29 [place] % (Auto) 8.9 % 06/17/23 13:29 Eos % (Auto) 0.1 % 06/17/23 13:29 Baso % (Auto) 0.4 % 06/17/23 13:29 Neut # (Auto) 4.61 10^3/uL (1.8-7.7) 06/17/23 13:29 Lymph # (Auto) 1.8 10^3/uL (0.8-4.8) 06/17/23 13:29 [place] # (Auto) 0.6 10^3/uL (0.2-0.9) 06/17/23 13:29 Eos # (Auto) 0.0 10^3/uL (0.0-0.8) 06/17/23 13:29 Baso # (Auto) 0.0 10^3/uL (0.0-0.1) 06/17/23 13:29 Nucleated RBC % (auto) 0 % 06/17/23 13:29 Nucleated RBCs # 0.0 /100WBC 06/17/23 13:29 Sodium 135 mmol/L (136-145) L 06/17/23 13:29 Potassium 3.9 mmol/L (3.5-5.1) 06/17/23 13:29 Chloride 92 mmol/L (98-107) L 06/17/23 13:29 Carbon Dioxide 20 mmol/L (22-29) L 06/17/23 13:29 Anion Gap 26.9 (5-19) H 06/17/23 13:29 BUN 8 mg/dL (8-23) 06/17/23 13:29 Creatinine 0.7 mg/dL (0.5-0.9) 06/17/23 13:29 GFR Calculation 84.2 mL/min (90-130) L 06/17/23 13:29 Glucose 87 mg/dL (65-115) 06/17/23 13:29 Calculated Osmolality 278 mOsm/kg (285-295) L 06/17/23 13:29 Calcium 8.8 mg/dL (8.5-10.5) 06/17/23 13:29 Total Bilirubin 0.7 mg/dL (0.15-1.2) 06/17/23 13:29 AST 189 U/L (0-32) H 06/17/23 13:29 ALT 158 U/L (0-33) H 06/17/23 13:29 Alkaline Phosphatase 174 U/L (35-105) H 06/17/23 13:29 Total Protein 5.9 g/dL (6.6-8.7) L 06/17/23 13:29 Albumin 3.9 g/dL (3.5-5.2) 06/17/23 13:29 Globulin 2.0 g/dL (1.3-4.6) 06/17/23 13:29 Lipase 55 U/L (13-60) 06/17/23 13:29 Salicylates < 0.3 mg/dL (3-10) L 06/17/23 13:29 Acetaminophen < 5.0 ug/mL (10-30) L 06/17/23 13:29 Ethyl Alcohol 144 mg/dL (0-10) H 06/17/23 13:29 A&P Assessment and plan (1) Alcohol withdrawal syndrome: (2) Chronic alcohol abuse: (3) Anxiety: Plan Admit to ICU in view of alcohol withdrawal CIWA protocol and monitoring aspiration and seizure precautions prn ativan per CIWA protocol po thiamine and folic acid start librium 25mg po q8h , to be tapered based on response Precedex gtt if inadequate response to ativan Noted transminitis, prior CT abdomen from 03/07 with Hepatomegaly and marked hepatic steatosi, likely made worse by alcohol hepatitis continue protonix 40mg po BID Attestations 2 Medical Necessity Statement*: > 2 midnight admission in anticipated at this time for alcohol withdrawal Coding Level of Care Code Acute Code for [facility] Diagnoses Alcohol withdrawal syndrome F10.939 Chronic alcohol abuse F10.10 Anxiety F41.9
[2023-06-17] MEDS: pantoprazole DR 40 mg Tablet PO (17:59)
[2023-06-17] MEDS: chlordiazePOXIDE 25 mg Capsule PO (17:59)
[2023-06-17] MEDS: LORazepam 2 mg Tablet PO (18:13)
[2023-06-17] MEDS: D5-NS 0.45% + KCL 20 mEq 20 MEQ/1,000 ML BAG 100 MEQ IV (21:48)
[2023-06-17] MEDS: heparin 5,000 unit/mL INJ 1 mL 5000 UNIT SUBCUT (21:53)
[2023-06-18] VITALS (38 sets, daily range): BP systolic 89–142; BP diastolic 54–92; PULSE 69–100; RESP 14–28; TEMP 36.6–36.8; O2SAT 92–100; BMI 20.4
[2023-06-18] MEDS: chlordiazePOXIDE 25 mg Capsule PO ×2 (00:36→08:54)
[2023-06-18 01:15] LABS: Add Urine Culture? No; Add Urine Microscopic? YES; Bacteria Urine TRACE /hpf; Bilirubin Urine 1+ (Negative); Blood Urine 2+ (Negative); Glucose Urine UA Norm (Normal); Ketones Urine 2+ (Negative); Leukocyte Esterase Urine Negative (Negative); Mucus Urine 1+ /hpf; Nitrate Urine Negative (Negative); Protein Urine Neg (Negative); RBC Urine 0-4 /hpf (0-2); Specific Gravity, Urine 1.015 (1.005-1.030); Urine Appearance Clear (CLEAR); Urine Color Dark Yellow (Yellow); Urobilinogen Urine Neg (Negative); WBC Urine 0-4 /hpf (0-5); pH Urine 6.5 (5-7)
[2023-06-18 01:16] LABS: Amphetamines Screen Urine Negative (Negative); Barbiturates Screen Urine Negative (Negative); Benzodiazepines Screen Urine Positive (Negative); Cocaine Screen Urine Negative (Negative); Opiate Screen Urine Negative (Negative); PCP Screen Urine Negative (Negative); THC Screen Urine Negative (Negative)
[2023-06-18 03:56] LABS: Basophils % 0.6 %; Eosinophils % 0.3 %; Hematocrit 34.2 % (36-47); Lymphocytes # 2.2 10^3/uL (0.8-4.8); Lymphocytes % 30.5 %; Mean Corpuscular HGB Conc 35.7 g/dL (30-55); Mean Corpuscular Hemoglobin 39.2 pg (27-33); Mean Platelet Volume 11.4 fL (7.4-10.4); Monocytes # 0.8 10^3/uL (0.2-0.9); Monocytes % 10.9 %; Neutrophils # 4.17 10^3/uL (1.8-7.7); Neutrophils % 57.3 %; Nucleated Red Blood Cells % 0 %; Platelet Count 144 10^3/cmm (157-399); Red Blood Count 3.11 10^6/uL (3.85-5.65); Red Cell Distribution Width 12.6 % (12.1-15.1); White Blood Count 7.27 10^3/uL (3.29-11.43)
[2023-06-18 04:15] LABS: Alanine Aminotransferase 106 U/L (0-33); Albumin Level 3.1 g/dL (3.5-5.2); Alkaline Phosphatase 128 U/L (35-105); Anion Gap 15.1 (5-19); Aspartate Amino Transferase 127 U/L (0-32); Blood Urea Nitrogen 9 mg/dL (8-23); Calcium 7.9 mg/dL (8.5-10.5); Carbon Dioxide 26 mmol/L (22-29); Chloride 99 mmol/L (98-107); Creatinine Clr Calc Pharmacy 58.5758; Globulin 1.7 g/dL (1.3-4.6); Glomerular Filtration Rate 84.2 mL/min (90-130); Glucose 94 mg/dL (65-115); Osmolality Calculated 280 mOsm/kg (285-295); Potassium 4.1 mmol/L (3.5-5.1); Sodium 136 mmol/L (136-145); Total Protein 4.8 g/dL (6.6-8.7)
[2023-06-18] MEDS: D5-NS 0.45% + KCL 20 mEq 20 MEQ/1,000 ML BAG 100 MEQ IV ×3 (05:08→23:51)
[2023-06-18] MEDS: escitalopram 10 mg Tablet 30 MG PO (08:50)
[2023-06-18] MEDS: multivitamin therapeutic Tablet 1 TAB PO (08:51)
[2023-06-18] MEDS: pantoprazole DR 40 mg Tablet PO ×2 (08:53→17:13)
[2023-06-18] MEDS: thiamine 100 mg Tablet PO (08:53)
[2023-06-18] MEDS: folic acid 1 mg Tablet PO (08:53)
[2023-06-18] MEDS: heparin 5,000 unit/mL INJ 1 mL 5000 UNIT SUBCUT ×2 (09:04→20:58)
[2023-06-18] MEDS: LORazepam 2 mg/mL INJ 10 mL MDV IVP (10:45)
--- NOTE | 2023-06-18 13:31 | W.PM.NPUH&PS ---
Providers/Chief Complaint Admitting Physician: Rosana Rashid MD Primary Care Provider: Davey Scott MD Chief Complaint: dehydrated, no urine/bowel movement HPI NPU History of Present Illness Alicia Morse is a 62 year old female who presented to the emergency department with the following report: Chief complaint: Weakness Stated complaint: dehydrated, no urine/bowel movement Time Seen by Provider: 06/17/23 13:45 Source: patient Mode of arrival: ambulatory History of Present Illness: 62-year-old female presents emergency room with severe anxiety. Patient has a prolonged grief reaction with loss of her from last summer. She has began drinking alcohol pretty regularly. She is tremulous and tachycardic on arrival she tells me she is not had anything to drink for a couple of days. She has been eating or drinking to the point where she had an EGD last week to further evaluate we do not have access to the results but family reports that there was no significant finding. She has had a lot of vomiting the last several weeks. She denies any hematemesis or coffee-ground emesis no melena no hematochezia. She admits to drinking regularly and not eating much the last several months. Since loss of her she has lost 50 to 60 pounds. Family at the bedside endorses that she has been drinking regularly. She tells me she only drinks 3-4 6 ounce glasses of wine per day. She states over the last couple of weeks she is actually cut back some. Initially only seen the patient she tells me that her last drink was yesterday. She only had a couple of drinks yesterday. She only drinks wine. She denies use of any other drugs. She is prescribed Xanax and Ambien which she takes regularly. Family reports confidentially that she has been more irritable in the last several months since the loss of her . She has had significant mood swings and at times anger outburst towards family members which is very atypical of her. Complaint: generalized weakness Onset (ago): month(s) Duration: constant Location: generalized Relieving factors: none Exacerbating factors: none Associated symptoms: Reports decreased appetite, nausea and vomiting; Denies chest pain, chills, confusion, melena, diaphoresis, dysuria, easy bruising, fever(s), headache(s), myalgias, rash, short of breath or syncope. She was admitted to the ICU for definitive treatment of those issues. A psychiatric consult was requested for concerns of suicidality and continued grieving as well as whether she needs ongoing or inpatient psychiatric care. She was seen in very similar circumstances in February of last year and an excerpt of that consult is included below for context. She resents today reporting that essentially things are unchanged. She was a fairly resistant historian initially answering questions but then in a very odd fashion looking at this publicity writer and stating I do not like to be threatened. At this point the interview I simply asked questions about how she had been in the interim since our last interview and she remembered this publicity writer and if anything is changed. She could not seem to explain why she was feeling threatened by this publicity writer but continued to bring up the subject. At 1 point she did report having some alcohol use on most days and reported that she had drank a little prior to coming into the hospital. I simply identified that her blood alcohol was 144 and suggested possibly she may have been drinking more than she realized and she then talked about not liking being bullied. Once again reviewed the purpose of this publicity writer's involvement in her case and hoping to assist her in figuring out how to manage or treat her alcohol use and the concerns with concommittant Xanax use and reporting that we continue to have concerns with the coadministration of Xanax with someone drinking as much as she has been especially at her age and the risk of falls and other cognitive risks. She was unclear of whether Dr. Scott was fully aware of the level of alcohol use she is having along with the Xanax he is prescribing. We discussed needing to hold the Xanax while she is getting Ativan for withdrawal. We discussed concerns for possible need for detox/rehab and/or continued inpatient psychiatric care. Per her 02/18/2023 [facility] inpatient psychiatric consult: History of Present Illness Alicia Morse is a 62 year old female who presented to the emergency department with the following report: Chief complaint: Airway/Esophagus Foreign Body Stated complaint: object lodged in throat Time Seen by Provider: 02/17/23 09:21 Source: patient and family (daughter) Mode of arrival: ambulatory Limitations: no limitations History of Present Illness: Patient is a nice 62-year-old female who presents to ED today along with her daughter for concerns that she has an Advil pill stuck in her throat. Daughter states her mother has had intermittent episodes of vomiting over the past week or so. She states her, herself, has had a productive cough over the past 5 weeks or so and states her mother has recently came down with a cough as well. She feels like some of her vomiting is posttussive. Patient confirms this. She feels like maybe she is getting choked/gagged on phlegm. Daughter states since Thursday/Thursday vomiting has worsened and she hasn't been able to keep much down. She states she overall is feeling very poor. She does not complain of abdominal pain. No changes in bowel movements. No fevers. This morning she states she took an Advil tablet and immediately felt like it got stuck in her throat. She is very anxious about the sensation of a pill being stuck. She has no shortness of breath or difficulty breathing. States she was able to drink some water following the pill ingestion. Patient takes many medications for anxiety and sleep. She recently lost her to metastatic colon cancer and has been struggling since then. She does admit to drinking in the evenings to help her sleep. Onset (ago): hour(s) Severity: moderate Relieving factors: none Exacerbating factors: other (swallowing) Associated symptoms: Reports vomiting; Deny chest pain, dyspnea, headache(s), malaise, nausea, rash, palpitations or syncope Patient was admitted to [facility] for definitive treatment of those issues and concerns were raised about significant anxiety especially against the backdrop of drinking alcohol. Patient presents today reporting that she has no previous hospitalizations but finds herself in a very stressful situation given the recent loss of her and her increased drinking behavior along with the use of Xanax as her rescue medication for her anxiety. We had a fairly lengthy discussion about the impact of benzodiazepines on people as they age and increased risk for bad outcomes given that reality. She is currently on Lexapro 20 mg p.o. daily and we discussed the risks benefits and alternatives of her increasing the Lexapro to 30 mg p.o. daily with a plan to hopefully be able to back down on the Xanax. We had a lengthy discussion about a reasonable pattern of decreasing on Xanax to eliminate/reduce any risk of bad outcome with Xanax and we reviewed that until she was able to report the plan back to this publicity writer. We also discussed her talking to her outpatient provider about this plan so that person was aware as well. We reviewed the remainder of her psychosocial history which was noncontributory and is making any decisions as there were no concerns for lethality or need for inpatient psychiatric care. Meds NPU Home Medications Medication Instructions Recorded Confirmed Last Taken Type alprazolam 1 mg tablet 1 mg PO BID 02/17/23 06/17/23 Unknown History rosuvastatin 10 mg tablet 10 mg PO QPM 02/17/23 06/17/23 02/15/23 History zolpidem 10 mg tablet 10 mg PO BEDTIME 02/17/23 06/17/23 Unknown History escitalopram oxalate 20 mg tablet 30 mg (1.5 x 20 mg) PO DAILY #45 02/18/23 06/17/23 Unknown Rx (Lexapro) tabs folic acid 1 mg tablet 1 mg PO DAILY #30 tabs 02/18/23 06/17/23 Unknown Rx multivitamin with folic acid 400 1 tab PO DAILY #30 tabs 02/18/23 06/17/23 Unknown Rx mcg tablet (Thera) thiamine mononitrate (vit B1) 100 100 mg PO DAILY #30 tabs 02/18/23 06/17/23 Unknown Rx mg tablet (Vitamin B-1 (mononitrate)) pantoprazole 40 mg tablet,delayed 40 mg PO BID PRN Acid Reflux 06/17/23 06/17/23 Unknown History release (Protonix) Allergies Allergy/AdvReac Type Severity Reaction Status Date / Time No Known Allergies Allergy Verified 06/17/23 13:16 PFS NPU PFSH: Medical History Colonoscopy planned 2020 Hyperlipidemia Sleep disturbance Anxiety Surgical History H/O lateral meniscus repair of right knee History of removal of ovarian cyst Family History Mother Stroke Father Heart disease Myocardial infarction Sister Breast cancer Social History Smoking and tobacco/nicotine status: current every day tobacco/nicotine user cigarettes Packs smoked per day: 0.5 Years cigarettes smoked: 20 Alcohol intake: current Alcohol intake frequency: 0-2 Drinks per Day Alcohol type: beer and hard liquor Substance/Drug Use: never Lives independently: Yes Marital status: / Mental Status Exam MSE Comments: This is a slender older white female in hospital gown with limited grooming and eye contact. No abnormal movements except for significant psychomotor retardation juxtaposed with significant tremulousness. With some resistance to exam in moderate distress. Speech was decreased rate and volume with tremulousness in her voice as well. Mood described as somewhat anxious, affect congruent. Thought process linear and sometimes appearing confused. Thought content: Patient denied suicidal or homicidal ideation, there were no delusions reported but she at times seemed quite paranoid, she denied any auditory or visual hallucinations. Attention and concentration were limited and memory appeared reliable but none were formally tested. She is alert and oriented x person and place. Insight, judgment and impulse control appeared impaired. Vitals/I&O/Wt Last Vital Signs Temp 97.8 F 06/18/23 09:00 Pulse 72 06/18/23 13:00 Resp 24 H 06/18/23 13:00 BP 116/69 06/18/23 13:00 Pulse Ox 95 06/18/23 13:00 O2 Del Method Room Air 06/18/23 02:30 06/17/23 06/18/23 06/18/23 22:59 06:59 14:59 Intake Total 1060 / 1060 1213.333 / 2273.333 200 / 200 Output Total 300 / 300 Balance 1060 / 1060 913.333 / 1973.333 200 / 200 Weight last 48 hrs Weight 47.5 kg Weight 46 kg Weight 45.359 kg Data NPU 06/19/23 04:34 06/19/23 04:34 A&P Assessment and plan (1) Anxiety: (2) Bereavement: (3) Alcohol use disorder, severe, dependence: (4) Alcohol withdrawal syndrome: (5) Persistent complex bereavement disorder: (6) Depression: Plan This is a 62-year-old white female seen in the consult in February with a recent loss of her and significant anxiety currently on Lexapro and Xanax with concerns for increased drinking and long-term use of the Xanax who returns with the same concerns and elevated alcohol level somewhat resistant to interview. 1. Continue current medication. Except: 2. Recommend increase in Lexapro to 30 mg p.o. daily. 3. Continue to recommend decreasing Xanax in a stepwise fashion. Will hold Xanax currently while we assist her through the detox/withdrawal process and then consider the possibility of a Librium taper or seeing if inpatient rehab is possible. 4. Patient would benefit from being transferred to the neuropsychiatric unit once she is medically stable to continue assisting in the resolution of these concerns and for her physical safety given the withdrawal concerns. 5. Will continue to follow. Attestations NPU Medical Necessity Statement*: N/A. See primary team note for medical necessity. However likely need for inpatient hospitalization once she is medically stable. Coding Level of Care Code Acute Code for [facility] Fwd Diagnoses Anxiety F41.9 Bereavement Z63.4 Alcohol use disorder, severe, dependence F10.20 Alcohol withdrawal syndrome F10.939 Persistent complex bereavement disorder F43.81 Depression F32.A
--- NOTE | 2023-06-18 16:21 | P.PN_ITS ---
Subjective 2 Subjective: Last CIWA score at 10. Patient states that she is still very anxious. Does not think Librium 25 3 times a day is helping very much with her symptoms. Requesting additional Xanax, states she takes up to 2 mg daily. States that she would like help dealing with her emotions. Medications: Reviewed: Yes Vitals/I&O/Wt Last Vital Signs Temp 97.8 F 06/18/23 09:00 Pulse 80 06/18/23 14:30 Resp 23 H 06/18/23 14:30 BP 141/84 06/18/23 14:30 Pulse Ox 93 06/18/23 14:30 O2 Del Method Room Air 06/18/23 02:30 06/18/23 06/18/23 06/18/23 06:59 14:59 22:59 Intake Total 1213.333 / 2273.333 200 / 200 Output Total 300 / 300 Balance 913.333 / 1973.333 200 / 200 Weight last 48 hrs Weight 47.5 kg Weight 46 kg Weight 45.359 kg Physical Exam 2 Narrative: General: No acute distress, AO x3 HEENT: PERRLA, pupils bilaterally equal and reactive, pallors not present Chest: Normal vesicular breath sounds, no added sounds, equal good air entry bilaterally CVS: S1-S2 regular, no murmurs, no tachycardia, no gallops, no rubs Abdomen: Soft, nontender, no organomegaly, bowel sounds present Neuro: No focal deficits, no facial deformity, AO x3, power 5/5 in all limbs Data 06/18/23 03:32 06/18/23 03:32 A&P Assessment and plan (1) Alcohol withdrawal syndrome: (2) Chronic alcohol abuse: (3) Anxiety: Plan Admit to ICU in view of alcohol withdrawal CIWA protocol and monitoring aspiration and seizure precautions prn ativan per CIWA protocol po thiamine and folic acid start librium 25mg po q8h , to be tapered based on response Precedex gtt if inadequate response to ativan Noted transminitis, prior CT abdomen from 03/07 with Hepatomegaly and marked hepatic steatosi, likely made worse by alcohol hepatitis continue protonix 40mg po BID Plan for today June 18, 2023. Patient needs continued admission for high CIWA scores. Last taken this morning at CIWA score of 10. Increase Librium to 50 mg every 6 hours. Assess for response with change in medication dosing. Appreciate psychiatry assessment. Patient likely to benefit from stay in the neuropsychiatry unit for depression, management of medications for alcohol dependence and depression. Will assess for transfer to n.p.o. once over acute alcohol withdrawal. She may be transferred out of ICU to the floors today. Continue close monitoring. Attestations 2 Medical Necessity Statement*: Needs continued admission for management of alcohol withdrawal. Coding Level of Care Code Acute Code for [facility] Fwd High MDM includes number and complexity of problems actively addressed during encounter, amount and/or complexity of data reviewed/ordered and described risk of complication, morbidity or mortality of management as documented Diagnoses Alcohol withdrawal syndrome F10.939 Chronic alcohol abuse F10.10 Anxiety F41.9
[2023-06-18] MEDS: LORazepam 2 mg Tablet PO (21:28)
--- NOTE | 2023-06-18 21:58 | P.EN_ITS ---
Event Note Event Note: Patient was seen this evening, according to nursing staff patient was transferred from ICU to [facility], she was found smoking in her room, and her back she was found to have a empty bottle of alprazolam. I evaluated patient, she is alert oriented x 3, following all commands she does have moderate tremors, going through moderate alcohol withdrawal, she is received 2 mg Ativan about 30 minutes ago, continues to complain of anxiety. I advised her that smoking in the room will not be allowed and will not be tolerated, she voiced understanding all questions answered, promised to not smoke anymore on the hospital rounds. Also discussed smoking cessation counseling, she agrees. I confronted patient about her empty bottle of alprazolam, she tells me that recently her brother has been going through divorce has moved in with her, he has been going through a lot of anxiety, so she has been giving him 1 pill a day to help with his anxiety. So she is cut her dose in half, she uses 1 mg p.o. twice daily she is given 30-day supply 60 tablets, she has been giving him 1 pill a day. She tells me that she was originally prescribed the medications as her roughly a year ago from colon cancer, she followed him through chemotherapy, for 3 years, she has not not recovered the grieving process, she continues to grieve, she tells me that she never really got to get closure or give her final goodbyes, she tells me that her heart hurts her, and that is why she drinks alcohol. In terms of her empty bottle, she absolutely denies that she use the alprazolam here in the hospital, discussed morbidity and mortality associated with polypharmacy with other benzodiazepines and other medications were given to her here in the hospital, and risk of overdose if she were to take her alprazolam from home. She she voiced understanding, all presents with, she absolutely denies using alprazolam in the bottle here in the hospital. When I confronted her why it was empty, she again tells me that she has been having her dose with her brother, so that is why the her medications do not last as long as she has 2 use alcohol for the pain in her heart. I reviewed the bottle, it in fact does show that this was an old bottle from 11/05/2022, she tells me that it is an old bottle, she tells me she gets regular refills from Dr. Scott will have to confirm this with the pharmacy in the morning. Currently no active suicidal homicidal ideation, but it does appear the patient is in the grieving process and severely depressed will continue one-on-one sitter, continue to monitor closely. I manage resume her alprazolam 1 mg p.o. twice daily as she continues to complain of severe anxiety, Event Notes Attestations Time Spent in Patient Care: 16 - 35 minutes Moderate MDM includes number and complexity of problems actively addressed during encounter, amount and/or complexity of data reviewed/ordered and described risk of complication, morbidity or mortality of management as documented
--- NOTE | 2023-06-19 00:27 | PC.NURSE ---
Went into pts room at approximately 2100 to administer bedtime medication and found pts room smelling of cigarette smoke. When the patient was asked if she smoked in here she admitted that she did. While removing the cigarettes and dairy and food laboratory assistant from her possession, we found bottles of medications in the pts personal belongings. Among these bottles of medications was an empty bottle of xanax. When asked how many were supposed to be in there the patient guessed approx 30. When it was discovered that there were no meds in bottle this nurse asked if she had taken them while in the hospital and she denied it. This nurse left the room and called hospitalist Dr. Kuhn to give update on patient and notify of situation. At this time charge nurse Deyanira HU called the daughter listed on pts contacts to ask if she knew how many pills were in the xanax bottle; daughter was unsure of ammount of pills in bottle. Per documentation, medications were not present on admission, daughter stated to charge nurse that she brought pt a bag from home that she had requested however she was not aware of its contents. Pt was wanting to leave AMA stating that she just needs help. Upon talking with the patient she agreed to stay, stating that she just needs something to help her nerves. Dr. Kuhn came up to to see patient and ordered home dose of Xanax. PRN Ativan was given per CIWA protocol. Daughter came to stay with patient. Daughter and patient are both resting.
--- NOTE | 2023-06-19 03:10 | PC.NURSE ---
The following placed in Pyxis: 1 full pack of cigarettes, 1 pack of cigarettes with 9 cigarettes, 2 shot glasses, Advil PM bottle, Rosuvastatin bottle, Xanax bottle (empty), 2 cigarette lighters. Olga Luis LPN as witness.
[2023-06-19 04:28] VITALS: BP 109/74; PULSE 95; RESP 16; O2SAT 99
[2023-06-19 04:54] LABS: Basophils % 0.7 %; Eosinophils # 0.1 10^3/uL (0.0-0.8); Eosinophils % 0.9 %; Lymphocytes # 2.1 10^3/uL (0.8-4.8); Mean Corpuscular HGB Conc 35.5 g/dL (30-55); Mean Corpuscular Hemoglobin 39.1 pg (27-33); Mean Corpuscular Volume 110.4 fl (85-98); Mean Platelet Volume 11.6 fL (7.4-10.4); Monocytes # 0.6 10^3/uL (0.2-0.9); Neutrophils # 2.76 10^3/uL (1.8-7.7); Neutrophils % 49.9 %; Nucleated Red Blood Cells % 0 %; Platelet Count 132 10^3/cmm (157-399); Red Blood Count 2.99 10^6/uL (3.85-5.65); Red Cell Distribution Width 12.1 % (12.1-15.1); White Blood Count 5.54 10^3/uL (3.29-11.43)
[2023-06-19 05:15] LABS: Alanine Aminotransferase 88 U/L (0-33); Albumin Level 2.9 g/dL (3.5-5.2); Alkaline Phosphatase 125 U/L (35-105); Anion Gap 13.7 (5-19); Aspartate Amino Transferase 99 U/L (0-32); Blood Urea Nitrogen 6 mg/dL (8-23); Calcium 8.1 mg/dL (8.5-10.5); Carbon Dioxide 22 mmol/L (22-29); Chloride 102 mmol/L (98-107); Creatinine Clr Calc Pharmacy 61.5756; Globulin 1.8 g/dL (1.3-4.6); Glomerular Filtration Rate 84.2 mL/min (90-130); Glucose 113 mg/dL (65-115); Osmolality Calculated 276 mOsm/kg (285-295); Potassium 3.7 mmol/L (3.5-5.1); Sodium 134 mmol/L (136-145); Total Bilirubin 0.7 mg/dL (0.15-1.2); Total Protein 4.7 g/dL (6.6-8.7)
--- NOTE | 2023-06-19 07:00 | W.PM.NPUPNS ---
Subjective NPU Subjective: Patient presented today reporting that she felt bad that we did not get off on better footing on our last conversation. I assured her there were no hard feelings. She identified that she had been sleep and was somewhat startled when I entered the room on the ICU. We discussed that we were going to work with her to make sure she continue to safely withdraw from the alcohol and that we needed to work on a plan for eliminating the Xanax as we had talked about during her last hospitalization. She was open to being on the neuropsychiatric unit and denied any side effects to her current medications. Mental Status Exam MSE Comments: This is a slender older white female in hospital gown with limited grooming and eye contact. No abnormal movements except for significant psychomotor retardation juxtaposed with significant tremulousness. With some resistance to exam in moderate distress. Speech was decreased rate and volume with tremulousness in her voice as well. Mood described as somewhat anxious, affect congruent. Thought process linear and sometimes appearing confused. Thought content: Patient denied suicidal or homicidal ideation, there were no delusions reported but she at times seemed quite paranoid, she denied any auditory or visual hallucinations. Attention and concentration were limited and memory appeared reliable but none were formally tested. She is alert and oriented x person and place. Insight, judgment and impulse control appeared impaired. Vitals/I&O/Wt Last Vital Signs Temp 97.8 F 06/18/23 23:56 Pulse 95 06/19/23 04:28 Resp 16 06/19/23 04:28 BP 109/74 06/19/23 04:28 Pulse Ox 99 06/19/23 04:28 O2 Del Method Room Air 06/18/23 19:52 06/18/23 06/19/23 06/19/23 22:59 06:59 14:59 Intake Total 1400 / 1600 783.333 / 2383.333 Balance 1400 / 1600 783.333 / 2383.333 Weight last 48 hrs Weight 51.851 kg Weight 47.5 kg Weight 46 kg Weight 45.359 kg Data NPU 06/19/23 04:34 06/19/23 04:34 A&P Assessment and plan (1) Anxiety: (2) Bereavement: (3) Alcohol use disorder, severe, dependence: (4) Alcohol withdrawal syndrome: (5) Persistent complex bereavement disorder: (6) Depression: Plan This is a 62-year-old white female seen in the consult in February with a recent loss of her and significant anxiety currently on Lexapro and Xanax with concerns for increased drinking and long-term use of the Xanax who returns with the same concerns and elevated alcohol level somewhat resistant to interview. 1. Continue current medication. Except: 2. Recommend continuing Lexapro at 30 mg p.o. daily 3. Recommend switch to Librium from Xanax while in the hospital and we will consider what to do at discharge. Discussed this with the hospitalist. 4. Transfer to neuropsychiatric unit once she is medically stable to continue assisting in the resolution of these concerns and for her physical safety given the withdrawal concerns. 5. Continue every 15 minute checks for safety on the unit. 6. Encourage individual, group and milieu therapy. Attestations NPU Medical Necessity Statement*: Inpatient hospitalization is medically necessary and the clinically appropriate intervention at this time. We will monitor medications and make changes as indicated. She Likely length of stay 3 to 5 days. Coding Level of Care Code Acute Code for [facility] Fwd Diagnoses Anxiety F41.9 Bereavement Z63.4 Alcohol use disorder, severe, dependence F10.20 Alcohol withdrawal syndrome F10.939 Persistent complex bereavement disorder F43.81 Depression F32.A
[2023-06-19] MEDS: ALPRAZolam 0.5 mg Tablet 1 MG PO (07:23)
[2023-06-19 07:25] VITALS: BP 125/84; PULSE 75; RESP 17; TEMP 36.7; O2SAT 97
[2023-06-19] MEDS: escitalopram 10 mg Tablet 30 MG PO (07:59)
[2023-06-19] MEDS: heparin 5,000 unit/mL INJ 1 mL 5000 UNIT SUBCUT (07:59)
[2023-06-19] MEDS: thiamine 100 mg Tablet PO (08:04)
[2023-06-19] MEDS: pantoprazole DR 40 mg Tablet PO ×2 (08:04→17:25)
[2023-06-19] MEDS: folic acid 1 mg Tablet PO (08:04)
[2023-06-19] MEDS: multivitamin therapeutic Tablet 1 TAB PO (08:04)
[2023-06-19] MEDS: D5-NS 0.45% + KCL 20 mEq 20 MEQ/1,000 ML BAG 100 MEQ IV (10:25)
[2023-06-19 11:30] VITALS: BP 128/82; PULSE 88; RESP 17; TEMP 36.7; O2SAT 96
[2023-06-19] MEDS: LORazepam 2 mg Tablet PO (11:40)
[2023-06-19] MEDS: chlordiazePOXIDE 25 mg Capsule PO ×2 (13:56→20:24)
--- NOTE | 2023-06-19 16:03 | PC.NURSE ---
Report called to Mehul in NPU
[2023-06-19 16:33] VITALS: BP 124/84; PULSE 88; RESP 20; TEMP 36.5; O2SAT 98
[2023-06-19 16:38] VITALS: BMI 22.3
--- NOTE | 2023-06-19 17:00 | PM.PN ---
Subjective Subjective: Overnight events noted. Patient continues to deny use of Xanax in the hospital without prescription. Discussed with her rationale for avoiding high doses of Xanax. CIWA scores are better today. This morning CIWA score was at 3. Continues to report anxiety. Patient is visibly depressed. Cries very easily, states that she wants help with depression and wants to break the cycle of depression and recurrent drinking however unable to do so. I discussed with her transitioning to the neuropsychiatry unit today as she would benefit from inpatient admission given her severe depression, inability to assess her extent of alcohol dependence and mixing alcohol with Xanax at home. Appears to be in denial about severity of alcohol consumption. Patient does not wish to stay in the hospital any longer. She requests discharge to be able to go home. Reports that she is currently living with her brother who has recently moved in with her. She has been provided with resources for AA, information about turning [facility] however she does not wish to consider these at this time. Medications: Reviewed: Yes Vitals/I&O/Wt Last Vital Signs Temp 98.0 F 06/19/23 11:30 Pulse 88 06/19/23 11:30 Resp 17 06/19/23 11:30 BP 128/82 06/19/23 11:30 Pulse Ox 96 06/19/23 11:30 O2 Del Method Room Air 06/19/23 11:30 06/18/23 06/19/23 06/19/23 22:59 06:59 14:59 Intake Total 1400 / 1600 783.333 / 2383.333 1060 / 1060 Balance 1400 / 1600 783.333 / 2383.333 1060 / 1060 Weight last 48 hrs Weight 51.851 kg Weight 47.5 kg Weight 46 kg Physical Exam Narrative: General: No acute distress, AO x3 HEENT: PERRLA, pupils bilaterally equal and reactive, pallors not present Chest: Normal vesicular breath sounds, no added sounds, equal good air entry bilaterally CVS: S1-S2 regular, no murmurs, no tachycardia, no gallops, no rubs Abdomen: Soft, nontender, no organomegaly, bowel sounds present Neuro: No focal deficits, no facial deformity, AO x3, power 5/5 in all limbs Data 06/19/23 04:34 06/19/23 04:34 A&P Assessment and plan (1) Alcohol withdrawal syndrome: (2) Chronic alcohol abuse: (3) Anxiety: Plan Admit to ICU in view of alcohol withdrawal CIWA protocol and monitoring aspiration and seizure precautions prn ativan per CIWA protocol po thiamine and folic acid start librium 25mg po q8h , to be tapered based on response Precedex gtt if inadequate response to ativan Noted transminitis, prior CT abdomen from 03/07 with Hepatomegaly and marked hepatic steatosi, likely made worse by alcohol hepatitis continue protonix 40mg po BID Plan for today June 18, 2023. Patient needs continued admission for high CIWA scores. Last taken this morning at CIWA score of 10. Increase Librium to 50 mg every 6 hours. Assess for response with change in medication dosing. Appreciate psychiatry assessment. Patient likely to benefit from stay in the neuropsychiatry unit for depression, management of medications for alcohol dependence and depression. Will assess for transfer to n.p.o. once over acute alcohol withdrawal. She may be transferred out of ICU to the floors today. Continue close monitoring. Plan for today: June 19, 2023; Patient has improved CIWA scores today down to 3, she will likely benefit from inpatient admission to the NPU to help with definitive management of sevre depression, grief and resulting alcohol dependence. She declines these interventions for now. Discussed case with daughter Ms. Ruiz that we are concerned about her safety at home when she is exhibiting poor awareness with regards to severity of her drinking and mixing alcohol with xanax. She continues to request xanax specifically during this admission when has been counselled that ativan belongs to the same [facility] family and will have anxiolytic effect as well. She wishes to return home. Will discuss case with Dr. Chino. Attestations Medical Necessity Statement*: continued admissionf or alcohol withdrawal, depression, potential transfer to NPU Coding Level of Care Code Acute Code for [facility] Fwd Diagnoses Alcohol withdrawal syndrome F10.939 Chronic alcohol abuse F10.10 Anxiety F41.9
[2023-06-19] MEDS: hyDROXYzine 25 mg Capsule 50 MG PO (17:25)
[2023-06-19 22:00] VITALS: BP 128/85; PULSE 90; RESP 15; TEMP 36.6; O2SAT 97
[2023-06-19] MEDS: OLANZapine 5 mg ODT PO (22:53)
[2023-06-20] MEDS: trazodone 50 mg Tablet PO ×2 (01:11→22:58)
[2023-06-20 06:00] VITALS: BP 110/78; PULSE 88; RESP 18; TEMP 36.3; O2SAT 98
[2023-06-20] MEDS: chlordiazePOXIDE 25 mg Capsule PO ×3 (06:08→21:03)
[2023-06-20] MEDS: hyDROXYzine 25 mg Capsule 50 MG PO ×2 (08:40→17:57)
[2023-06-20] MEDS: pantoprazole DR 40 mg Tablet PO ×2 (08:41→17:57)
[2023-06-20] MEDS: multivitamin therapeutic Tablet 1 TAB PO (08:41)
[2023-06-20] MEDS: folic acid 1 mg Tablet PO (08:41)
[2023-06-20] MEDS: thiamine 100 mg Tablet PO (08:41)
[2023-06-20] MEDS: nicotine 14 mg Patch 1 PATCH TRANSDERMA (08:41)
[2023-06-20] MEDS: escitalopram 10 mg Tablet 30 MG PO (08:41)
--- NOTE | 2023-06-20 09:46 | W.PM.NPUPNS ---
Subjective NPU Subjective: Patient presented today reporting that she is doing okay. She seems to be progressing through her withdrawal and having less overt symptoms per staff and direct documentation. She reports and appears to be standing dose of Librium and we discussed needing to decide what will happen at discharge given her lengthy time on Xanax 2 mg but continued concerns about her sobriety and her drinking on top of that dose. We discussed feeling like Xanax is no longer a reasonable option and that she should be off benzodiazepines in general at her age. We discussed Dr. Esparza returning tomorrow and making all future decisions about discharge and medication management. Mental Status Exam MSE Comments: This is a slender older white female in hospital scrubs with limited grooming and eye contact. No abnormal movements except for significant psychomotor retardation and no noteworthy tremulousness. More cooperative with exam in mild distress. Speech was decreased rate and volume with more steady verbalizations. Mood described as maybe a tiny bit better, affect congruent and less anxious appearing. Thought process linear and appearing less confused. Thought content: Patient denied suicidal or homicidal ideation, there were no delusions reported and she seemed a less paranoid, she denied any auditory or visual hallucinations. Attention and concentration were improving and memory appeared mostly reliable but none were formally tested. She is alert and oriented x person and place. Insight, judgment and impulse control appeared impaired. Vitals/I&O/Wt Last Vital Signs Temp 97.3 F L 06/20/23 06:00 Pulse 88 06/20/23 06:00 Resp 18 06/20/23 06:00 BP 110/78 06/20/23 06:00 Pulse Ox 98 06/20/23 06:00 O2 Del Method Room Air 06/20/23 06:00 Weight last 48 hrs Weight 46.629 kg Weight 51.851 kg Weight 51.851 kg Data NPU 06/19/23 04:34 06/19/23 04:34 A&P Assessment and plan (1) Anxiety: (2) Bereavement: (3) Alcohol use disorder, severe, dependence: (4) Alcohol withdrawal syndrome: (5) Persistent complex bereavement disorder: (6) Depression: Plan This is a 62-year-old white female seen in the consult in February with a recent loss of her and significant anxiety currently on Lexapro and Xanax with concerns for increased drinking and long-term use of the Xanax who returns with the same concerns and elevated alcohol level somewhat resistant to interview. 1. Continue current medication. Except: 2. Recommend continuing Lexapro at 30 mg p.o. daily 3. Recommend switch to Librium from Xanax while in the hospital and we will consider what to do at discharge. Discussed this with the hospitalist. Currently on 25 mg 3 times daily and will consider a possible taper at discharge. 4. Transferred to neuropsychiatric unit to continue assisting in the resolution of these concerns and for her physical safety given the withdrawal concerns. 5. Continue every 15 minute checks for safety on the unit. 6. Encourage individual, group and milieu therapy. Attestations NPU Medical Necessity Statement*: Inpatient hospitalization is medically necessary and the clinically appropriate intervention at this time. We will monitor medications and make changes as indicated. She Likely length of stay 2-4 days. Coding Level of Care Code Acute Code for [facility] Fwd Diagnoses Anxiety F41.9 Bereavement Z63.4 Alcohol use disorder, severe, dependence F10.20 Alcohol withdrawal syndrome F10.939 Persistent complex bereavement disorder F43.81 Depression F32.A
[2023-06-20] MEDS: OLANZapine 5 mg ODT PO ×2 (13:01→21:03)
--- NOTE | 2023-06-20 13:01 | PC.NURSE ---
Patient anxious, reports anxiety 10/23. Administered zyprexa 5mg ODT to patient for anxiety. Will continue to monitor.
[2023-06-20 13:48] VITALS: BP 157/91; PULSE 64; RESP 15; TEMP 36.6; O2SAT 98
[2023-06-20 19:56] VITALS: BP 106/72; PULSE 68; RESP 17; TEMP 36.6; O2SAT 99
[2023-06-20 23:59] VITALS: BP 102/73; PULSE 122; RESP 20; TEMP 36.4; O2SAT 99
[2023-06-21] MEDS: chlordiazePOXIDE 25 mg Capsule PO ×3 (05:40→21:07)
[2023-06-21 06:00] VITALS: BP 106/73; PULSE 67; RESP 18; TEMP 36.4; O2SAT 99
[2023-06-21] MEDS: nicotine 14 mg Patch 1 PATCH TRANSDERMA (08:24)
[2023-06-21] MEDS: pantoprazole DR 40 mg Tablet PO ×2 (08:24→17:56)
[2023-06-21] MEDS: multivitamin therapeutic Tablet 1 TAB PO (08:24)
[2023-06-21] MEDS: haloperidol 5 mg Tablet PO ×2 (08:24→22:48)
[2023-06-21] MEDS: thiamine 100 mg Tablet PO (08:24)
[2023-06-21] MEDS: folic acid 1 mg Tablet PO (08:24)
[2023-06-21] MEDS: escitalopram 10 mg Tablet 30 MG PO (08:24)
--- NOTE | 2023-06-21 08:40 | PC.NURSE ---
PT REPORTS SHE DID NOT SLEEP WELL LAST NIGHT AND THE MEDICATIONS THAT WERE GIVEN TO HER NEEDED DID NOT WORK. I NEED MY OTHER MEDICATIONS. MY XANAX AND AMBIEN. RN REVIEWED MEDICATIONS AND PT DOES HAVE ACTIVE PRESCRIPTIONS FOR AMBIEN 10 MG AT HS AND XANAX 1 MG BID. PT ASSURED THAT RN WOULD SPEAK TO DR. MENDES SOON HE IS IN AND ASK WHY THE MEDICATIONS WERE NOT RESTARTED OR GET ORDERS TO RESTART PTS MEDICATIONS. PT APPEARED TO MORE AT EASE. DENIES PAIN. DENIES SI/HI AND AVH AT THIS TIME. RATES ANXIETY 10/10, HALDOL 5 MG WAS GIVEN ORDERED FOR INCREASED ANXIETY. PT STATES I WILL NOT TAKE THE ONE THAT GOES UNDER MY TONGUE, IT MADE ME MORE ANXIOUS. PT ASSURRED THAT RN IS NOT GIVING ZYDIS. PT ALSO RATES DEPRESSION 10/10 AND IS OBSERVED TO HAVE A DEPRRESSED MOOD AND TEARFUL ON ASSESSMENT. RN LISTENED TO PT SHE TOLD STORIES OF WHO PASSED IN SEPTEMBER OF THIS YEAR. PT IS SAD AND STATES HER DEPRESSION HAS NOT IMPROVED. ALL QUESTIONS WERE ANSWERED AND SUPPORT WAS VOICED.
[2023-06-21 14:00] VITALS: BP 94/62; PULSE 60; RESP 18; TEMP 36.6; O2SAT 100
--- NOTE | 2023-06-21 17:11 | P.NPUPN_ITS ---
Subjective NPU 2 Subjective: 62-year-old female with alcohol dependen ce along with reports of generalized anxiety disorder admitted with significant alcohol related withdrawal symptoms and continued use of alcohol despite being prescribed Xanax routinely for treatment of her anxiety. She had continued to laments the loss of her in September and stated that she had been paralyzed by her inability to function anything in her home since his . She had reported being overwhelmed by everything. She had reported having limited psychotherapy in the past and stated that she had been on other medications before for treating anxiety and reported depression for over 3 years. She had continued to report a sense of hopelessness. She had reported feeling less shaky on her Librium. She had continued to minimize the significance of her use of alcohol as she had stated that she had only been drinking over the past year despite showing evidence of significant alcohol related withdrawal symptoms. Mental Status Exam 2 MSE Comments: This is a slender older white female in hospital scrubs with limited grooming and eye contact. No abnormal movements except for significant psychomotor retardation and no noteworthy tremulousness. She was cooperative with exam in moderate distress. Speech was decreased in rate and normal in volume with more steady verbalizations. Mood described as better. Her affect was mood incongruent and less anxious appearing. Thought process was circumstantial. Thought content: Patient denied suicidal or homicidal ideation, there were no delusions but she appeared guarded at times. She denied any auditory or visual hallucinations. Attention and concentration were improving and memory appeared mostly reliable but none were formally tested. She is alert and oriented x person and place, year and month today. Insight, judgment and impulse control appeared impaired. Vitals/I&O/Wt Last Vital Signs Temp 98 F 06/21/23 14:00 Pulse 60 06/21/23 14:00 Resp 18 06/21/23 14:00 BP 94/62 06/21/23 14:00 Pulse Ox 100 06/21/23 14:00 O2 Del Method Room Air 06/21/23 06:00 Weight last 48 hrs Weight 49.442 kg Weight 46.629 kg Data NPU 06/19/23 04:34 06/19/23 04:34 A&P Assessment and plan (1) Anxiety: (2) Bereavement: (3) Alcohol use disorder, severe, dependence: (4) Alcohol withdrawal syndrome: (5) Persistent complex bereavement disorder: (6) Depression: Plan This is a 62-year-old white female seen in the consult in February with a recent loss of her and significant anxiety currently on Lexapro and Xanax with concerns for increased drinking and long-term use of the Xanax who returns with the same concerns and elevated alcohol level somewhat resistant to interview. 1. Continue current medication. 2. Continue Lexapro at 30 mg p.o. daily 3. Will taper librium, currently at 25mg tid. 4. Transferred to neuropsychiatric unit to continue assisting in the resolution of these concerns and for her physical safety given the withdrawal concerns. 5. Continue every 15 minute checks for safety on the unit. 6. Encourage individual, group and milieu therapy. Attestations NPU 2 Medical Necessity Statement*: Inpatient hospitalization is medically necessary and the clinically appropriate intervention at this time. We will monitor medications and make changes as indicated. Her likely length of stay is 4-6 days. Coding Level of Care Code Acute Code for [facility] Diagnoses Anxiety F41.9 Bereavement Z63.4 Alcohol use disorder, severe, dependence F10.20 Alcohol withdrawal syndrome F10.939 Persistent complex bereavement disorder F43.81 Depression F32.A
[2023-06-21 21:00] VITALS: BP 93/68; PULSE 63; RESP 16; TEMP 36.4; O2SAT 97
[2023-06-21] MEDS: trazodone 50 mg Tablet PO (21:07)
[2023-06-22 06:00] VITALS: BP 95/61; PULSE 62; RESP 16; TEMP 36.6; O2SAT 98
[2023-06-22] MEDS: chlordiazePOXIDE 25 mg Capsule PO ×3 (07:29→17:25)
--- NOTE | 2023-06-22 07:29 | PC.NURSE ---
0600 DOSE OF LIBRIUM 25 MG WAS NOT GIVEN BY PYTHON CONSULTANT DUE TO PT SLEEPING NIGHT. RN STATED PT HAS HAD A HARD TIME RESTING AT NIGHT. THIS RN ADMINISTERED LIBRUIUM 25 MG AT 0729 AM. PT DID WAKE UP AND TAKE MEDICATION. SUPPORT VOICED.
[2023-06-22] MEDS: nicotine 14 mg Patch 1 PATCH TRANSDERMA (08:14)
[2023-06-22] MEDS: pantoprazole DR 40 mg Tablet PO ×2 (08:14→17:24)
[2023-06-22] MEDS: folic acid 1 mg Tablet PO (08:14)
[2023-06-22] MEDS: hyDROXYzine 25 mg Capsule 50 MG PO (08:14)
[2023-06-22] MEDS: thiamine 100 mg Tablet PO (08:14)
[2023-06-22] MEDS: escitalopram 10 mg Tablet 30 MG PO (08:14)
[2023-06-22] MEDS: multivitamin therapeutic Tablet 1 TAB PO (08:14)
--- NOTE | 2023-06-22 08:31 | PC.NURSE ---
IN BED AROUSES TO VOICE. PT DOES REPORT SHE SLEPT MUCH BETTER SINCEI GOT THOSE MEDS. NIGHT NURSE GAVE TRAZODONE AND HALDOL SINCE AFTER PT RECEIVED HALDOL FOR ANXIETY YESTERDAY PT STATED IT REALLY HELPED. PT IS OBSERVED TO HAVE A FLAT AFFECT AND DEPRESSED MOOD AND IS TEARFUL WHEN SPEAKING TO STAFF DUE TO PTS DYING IN SEPTEMBER. PT HAS SEVERAL FAMILY MEMBERS FOR SUPPORT AND APPROXIMATELY 4-5 VISITORS YESTERDAY. PT IS HOPING SHE IS DISCHARGED SOON BUT STATES I JUST WANT TO BE READY. PT EDUCATED THAT SHE WILL NOT BE DISCHARGED UNTIL DR. MENDES FEELS SHE IS STABLE AND RETURNED TO BASELINE. PT APPEARED MORE AT EASE AFTER CONVERSATION. PT DOES REQUEST THAT RN LET HER KNOW THE PLAN FOR HER AFTER MORNING MEETING. RATES ANXIETY /10 AND DEPRESSION /10. DENIES SI/HI AND AVH AT THIS TIME. DENIES PAIN. ALL QUESTIONS ANSWERED AND SUPPORT WAS VOICED.
[2023-06-22] MEDS: haloperidol 5 mg Tablet PO ×2 (12:19→20:07)
[2023-06-22 14:00] VITALS: BP 95/65; PULSE 60; RESP 15; TEMP 36.5; O2SAT 99
--- NOTE | 2023-06-22 17:15 | W.PM.NPUPNS ---
Subjective NPU Subjective: 62-year-old female with alcohol dependence along with reports of generalized anxiety disorder admitted with significant alcohol related withdrawal symptoms and continued use of alcohol despite being prescribed Xanax routinely for treatment of her anxiety. Patient had continued to minimize the significant amount of alcohol she had been consuming. She had reported that she was not feeling suicidal and stated that she wished to go back home soon to see her family. She had appeared anxious on the milieu. She had reported that she was feeling more steady with the Librium at 25 mg 3 times a day. She had reported that she needed to have help with managing her grief that she had stated that her depression had been going on for 3 years. Patient had not endorsed any history of panic attacks but reported having chronic problems with managing worry with reports of problems with concentration and sleep continuity disruption due to excess worry as well. The ad writer had spoken to the patient's daughter today who had provided some additional's information regarding the patient's care and stated that she would likely be helpful in facilitating a good transition and reporting that she would help with managing her tapering dose of medication when discharged. Mental Status Exam MSE Comments: This is a slender older white female in hospital scrubs with limited grooming and eye contact. No abnormal movements except for significant psychomotor retardation and no noteworthy tremulousness. She was cooperative with exam in moderate distress. Speech was normal in rate and normal in volume today. Mood described as steadier. Her affect was mood incongruent and anxious still. Thought process was more linear today. Thought content: Patient denied suicidal or homicidal ideation, there were no delusions. She denied any auditory or visual hallucinations. Attention and concentration were improving and memory appeared mostly reliable but none were formally tested. She is alert and oriented x person and place, year and month today. Insight remained poor. Her judgment and impulse control appeared limited. Vitals/I&O/Wt Last Vital Signs Temp 97.7 F 06/22/23 14:00 Pulse 60 06/22/23 14:00 Resp 15 06/22/23 14:00 BP 95/65 06/22/23 14:00 Pulse Ox 99 06/22/23 14:00 O2 Del Method Room Air 06/22/23 06:00 Weight last 48 hrs Weight 49.442 kg Data NPU 06/19/23 04:34 06/19/23 04:34 A&P Assessment and plan (1) Anxiety: (2) Bereavement: (3) Alcohol use disorder, severe, dependence: (4) Alcohol withdrawal syndrome: (5) Persistent complex bereavement disorder: (6) Depression: Plan This is a 62-year-old white female seen in the consult in February with a recent loss of her and significant anxiety currently on Lexapro and Xanax with concerns for increased drinking and long-term use of the Xanax who returns with the same concerns and elevated alcohol level somewhat resistant to interview. 1. Continue current medication. 2. Continue Lexapro at 30 mg p.o. daily 3. Reduce Librium to 25mg bid today. 4. Transferred to neuropsychiatric unit to continue assisting in the resolution of these concerns and for her physical safety given the withdrawal concerns. 5. Continue every 15 minute checks for safety on the unit. 6. Encourage individual, group and milieu therapy. Attestations NPU Medical Necessity Statement*: Inpatient hospitalization is medically necessary and the clinically appropriate intervention at this time. We will monitor medications and make changes as indicated. Her likely length of stay is 4-6 days. Coding Level of Care Code Acute Code for [facility] Diagnoses Anxiety F41.9 Bereavement Z63.4 Alcohol use disorder, severe, dependence F10.20 Alcohol withdrawal syndrome F10.939 Persistent complex bereavement disorder F43.81 Depression F32.A
[2023-06-22] MEDS: trazodone 50 mg Tablet PO ×2 (20:07→23:30)
[2023-06-22 22:00] VITALS: BP 94/70; PULSE 107; RESP 15; TEMP 36.3; O2SAT 98
[2023-06-23 06:00] VITALS: BP 95/61; PULSE 58; RESP 16; TEMP 36.4; O2SAT 95
[2023-06-23] MEDS: thiamine 100 mg Tablet PO (08:42)
[2023-06-23] MEDS: polyethylene glycol 3350 Pkt 17 gm PO (08:42)
[2023-06-23] MEDS: multivitamin therapeutic Tablet 1 TAB PO (08:42)
[2023-06-23] MEDS: escitalopram 10 mg Tablet 30 MG PO (08:42)
[2023-06-23] MEDS: folic acid 1 mg Tablet PO (08:42)
[2023-06-23] MEDS: pantoprazole DR 40 mg Tablet PO ×2 (08:42→18:19)
[2023-06-23] MEDS: chlordiazePOXIDE 25 mg Capsule PO ×2 (08:42→18:19)
[2023-06-23] MEDS: nicotine 14 mg Patch 1 PATCH TRANSDERMA (08:42)
--- NOTE | 2023-06-23 08:57 | PC.NURSE ---
patient reports anxiety and depression, denies SI, HI, AVH. Patient withdrawn to her bed. patient appears weak. this nurse encouraged patient to eat some of her breakfast. Patient stated that she would try. Patient was agreeable to take Miralax to aid in having a bowel movement.
[2023-06-23 14:00] VITALS: BP 110/76; PULSE 60; RESP 18; TEMP 36.7; O2SAT 99
--- NOTE | 2023-06-23 15:11 | P.NPUPN_ITS ---
Subjective NPU 2 Subjective: 62-year-old female with alcohol dependen ce along with reports of generalized anxiety disorder admitted with significant alcohol related withdrawal symptoms and continued use of alcohol despite being prescribed Xanax routinely for treatment of her anxiety. Patient had struggled with oral intake. She had continued to insist on wanting to go home. She was not reporting any side effects from the reduction in her Librium yet. She had stated that she would simply not drink again as she had no desire to come back here into the hospital. She had continued to struggle with managing her stress particularly her anxiety. She had endorsed feeling depressed for many years. She was agreeable to considering psychotherapy and continue with medication management. Patient had continued to minimize the significant amount of alcohol she had been consuming. Mental Status Exam 2 MSE Comments: This is a slender older white female in hospital scrubs with limited grooming and eye contact. No abnormal movements except for significant psychomotor retardation and no noteworthy tremulousness. She was cooperative with exam in moderate distress. Speech was normal in rate and normal in volume today. Mood described as okay. Her affect was mood incongruent and flat. Thought process was more linear today. Thought content: Patient denied suicidal or homicidal ideation, there were no delusions. She denied any auditory or visual hallucinations. Attention and concentration were improving and memory appeared mostly reliable but none were formally tested. She is alert and oriented x person and place, year and month today. Insight remained poor. Her judgment and impulse control appeared limited. Vitals/I&O/Wt Last Vital Signs Temp 98.1 F 06/23/23 14:00 Pulse 60 06/23/23 14:00 Resp 18 06/23/23 14:00 BP 110/76 06/23/23 14:00 Pulse Ox 99 06/23/23 14:00 O2 Del Method Room Air 06/23/23 06:00 Data NPU 06/19/23 04:34 06/19/23 04:34 A&P Assessment and plan (1) Anxiety: (2) Bereavement: (3) Alcohol use disorder, severe, dependence: (4) Alcohol withdrawal syndrome: (5) Persistent complex bereavement disorder: (6) Depression: Plan This is a 62-year-old white female seen in the consult in February with a recent loss of her and significant anxiety currently on Lexapro and Xanax with concerns for increased drinking and long-term use of the Xanax who returns with the same concerns and elevated alcohol level somewhat resistant to interview. 1. Continue current medication. 2. Continue Lexapro at 30 mg p.o. daily 3. Continue Librium to 25mg bid x2 days then decrease to 25mg daily. 4. Transferred to neuropsychiatric unit to continue assisting in the resolution of these concerns and for her physical safety given the withdrawal concerns. 5. Continue every 15 minute checks for safety on the unit. 6. Encourage individual, group and milieu therapy. 7. Patient would benefit from stay with family for 1-2 weeks after discharge to help with monitoring tapering and eventual DISCONTINUATION of Benzodiazepines on an outpatient basis. Attestations NPU 2 Medical Necessity Statement*: Inpatient hospitalization is medically necessary and the clinically appropriate intervention at this time. We will monitor medications and make changes as indicated. Her likely length of stay is 4-6 days. Coding Level of Care Code Acute Code for [facility] Fwd Diagnoses Anxiety F41.9 Bereavement Z63.4 Alcohol use disorder, severe, dependence F10.20 Alcohol withdrawal syndrome F10.939 Persistent complex bereavement disorder F43.81 Depression F32.A
[2023-06-23] MEDS: hyDROXYzine 25 mg Capsule 50 MG PO (18:27)
--- NOTE | 2023-06-23 18:28 | PC.NURSE ---
Patient tearful, states that she is missing out on time with her family while she is here at NPU. this nurse attempted to calm her nerves, but was unsuccessful. Administered 50mg Vistaril PO.
[2023-06-23 19:55] VITALS: BP 99/66; PULSE 62; RESP 15; TEMP 36.7; O2SAT 98
[2023-06-24 06:00] VITALS: BP 97/68; PULSE 65; RESP 15; TEMP 36.5; O2SAT 98
--- NOTE | 2023-06-24 08:17 | PC.NURSE ---
RESTING IN BED AROUSES TO VOICE. DENIES SI/HI AND AVH AT THIS TIME. DENIES PAIN. DISCHARGE IS ANTICIPATED TODAY AND PT IS GOING TO STAY WITH A FRIEND. PUBLIC HEALTH MICROBIOLOGIST TO CALL PTS FRIEND AND SET UP RIDE FOR TODAY. RATES ANXIETY AND DEPRESSION 0/10. PT WENT STRAIGHT BACKK TO SLEEPING. SUPPORT VOICED.
[2023-06-24] MEDS: multivitamin therapeutic Tablet 1 TAB PO (08:34)
[2023-06-24] MEDS: pantoprazole DR 40 mg Tablet PO (08:34)
[2023-06-24] MEDS: escitalopram 10 mg Tablet 30 MG PO (08:34)
[2023-06-24] MEDS: chlordiazePOXIDE 25 mg Capsule PO (08:34)
[2023-06-24] MEDS: nicotine 14 mg Patch 1 PATCH TRANSDERMA (08:34)
[2023-06-24] MEDS: folic acid 1 mg Tablet PO (08:34)
[2023-06-24] MEDS: thiamine 100 mg Tablet PO (08:34)
[2023-06-24 11:00] VITALS: BP 97/68; PULSE 65; RESP 15; TEMP 36.5; O2SAT 98
--- NOTE | 2023-06-24 13:50 | W.PM.NPUDCS ---
Diagnoses at Discharge Discharge Diagnosis (1) Anxiety: Status: Acute (2) Bereavement: Status: Acute (3) Alcohol use disorder, severe, dependence: Status: Acute (4) Alcohol withdrawal syndrome: Status: Acute (5) Persistent complex bereavement disorder: Status: Acute (6) Depression: Status: Acute Reason for Visit Reason for Visit: dehydrated, no urine/bowel movement Brief History: History of Present Illness Alicia Morse is a 62 year old female who presented to the emergency department with the following report: Chief complaint: Weakness Stated complaint: dehydrated, no urine/bowel movement Time Seen by Provider: 06/17/23 13:45 Source: patient Mode of arrival: ambulatory History of Present Illness: 62-year-old female presents emergency room with severe anxiety. Patient has a prolonged grief reaction with loss of her from last summer. She has began drinking alcohol pretty regularly. She is tremulous and tachycardic on arrival she tells me she is not had anything to drink for a couple of days. She has been eating or drinking to the point where she had an EGD last week to further evaluate we do not have access to the results but family reports that there was no significant finding. She has had a lot of vomiting the last several weeks. She denies any hematemesis or coffee-ground emesis no melena no hematochezia. She admits to drinking regularly and not eating much the last several months. Since loss of her she has lost 50 to 60 pounds. Family at the bedside endorses that she has been drinking regularly. She tells me she only drinks 3-4 6 ounce glasses of wine per day. She states over the last couple of weeks she is actually cut back some. Initially only seen the patient she tells me that her last drink was yesterday. She only had a couple of drinks yesterday. She only drinks wine. She denies use of any other drugs. She is prescribed Xanax and Ambien which she takes regularly. Family reports confidentially that she has been more irritable in the last several months since the loss of her . She has had significant mood swings and at times anger outburst towards family members which is very atypical of her. MD Complaint: generalized weakness Onset (ago): month(s) Duration: constant Location: generalized Relieving factors: none Exacerbating factors: none Associated symptoms: Reports decreased appetite, nausea and vomiting; Denies chest pain, chills, confusion, melena, diaphoresis, dysuria, easy bruising, fever(s), headache(s), myalgias, rash, short of breath or syncope. She was admitted to the ICU for definitive treatment of those issues. A psychiatric consult was requested for concerns of suicidality and continued grieving as well as whether she needs ongoing or inpatient psychiatric care. She was seen in very similar circumstances in February of last year and an excerpt of that consult is included below for context. She resents today reporting that essentially things are unchanged. She was a fairly resistant historian initially answering questions but then in a very odd fashion looking at this software writer and stating I do not like to be threatened. At this point the interview I simply asked questions about how she had been in the interim since our last interview and she remembered this software writer and if anything is changed. She could not seem to explain why she was feeling threatened by this software writer but continued to bring up the subject. At 1 point she did report having some alcohol use on most days and reported that she had drank a little prior to coming into the hospital. I simply identified that her blood alcohol was 144 and suggested possibly she may have been drinking more than she realized and she then talked about not liking being bullied. Once again reviewed the purpose of this software writer's involvement in her case and hoping to assist her in figuring out how to manage or treat her alcohol use and the concerns with concommittant Xanax use and reporting that we continue to have concerns with the coadministration of Xanax with someone drinking as much as she has been especially at her age and the risk of falls and other cognitive risks. She was unclear of whether Dr. Scott was fully aware of the level of alcohol use she is having along with the Xanax he is prescribing. We discussed needing to hold the Xanax while she is getting Ativan for withdrawal. We discussed concerns for possible need for detox/rehab and/or continued inpatient psychiatric care. Per her 02/18/2023 [facility] inpatient psychiatric consult: History of Present Illness Alicia Morse is a 62 year old female who presented to the emergency department with the following report: Chief complaint: Airway/Esophagus Foreign Body Stated complaint: object lodged in throat Time Seen by Provider: 02/17/23 09:21 Source: patient and family (daughter) Mode of arrival: ambulatory Limitations: no limitations History of Present Illness: Patient is a nice 62-year-old female who presents to ED today along with her daughter for concerns that she has an Advil pill stuck in her throat. Daughter states her mother has had intermittent episodes of vomiting over the past week or so. She states her, herself, has had a productive cough over the past 5 weeks or so and states her mother has recently came down with a cough as well. She feels like some of her vomiting is posttussive. Patient confirms this. She feels like maybe she is getting choked/gagged on phlegm. Daughter states since Thursday/Thursday vomiting has worsened and she hasn't been able to keep much down. She states she overall is feeling very poor. She does not complain of abdominal pain. No changes in bowel movements. No fevers. This morning she states she took an Advil tablet and immediately felt like it got stuck in her throat. She is very anxious about the sensation of a pill being stuck. She has no shortness of breath or difficulty breathing. States she was able to drink some water following the pill ingestion. Patient takes many medications for anxiety and sleep. She recently lost her to metastatic colon cancer and has been struggling since then. She does admit to drinking in the evenings to help her sleep. Onset (ago): hour(s) Severity: moderate Relieving factors: none Exacerbating factors: other (swallowing) Associated symptoms: Reports vomiting; Deny chest pain, dyspnea, headache(s), malaise, nausea, rash, palpitations or syncope Patient was admitted to [facility] for definitive treatment of those issues and concerns were raised about significant anxiety especially against the backdrop of drinking alcohol. Patient presents today reporting that she has no previous hospitalizations but finds herself in a very stressful situation given the recent loss of her and her increased drinking behavior along with the use of Xanax as her rescue medication for her anxiety. We had a fairly lengthy discussion about the impact of benzodiazepines on people as they age and increased risk for bad outcomes given that reality. She is currently on Lexapro 20 mg p.o. daily and we discussed the risks benefits and alternatives of her increasing the Lexapro to 30 mg p.o. daily with a plan to hopefully be able to back down on the Xanax. We had a lengthy discussion about a reasonable pattern of decreasing on Xanax to eliminate/reduce any risk of bad outcome with Xanax and we reviewed that until she was able to report the plan back to this software writer. We also discussed her talking to her outpatient provider about this plan so that person was aware as well. We reviewed the remainder of her psychosocial history which was noncontributory and is making any decisions as there were no concerns for lethality or need for inpatient psychiatric care. Hospital Course Hospital Course During the hospitalization, the patient had routine laboratory studies which were within normal limits except for a few outliers.? Additionally, there was a general medical evaluation which was also within normal limits and revealed no new acute processes.? At the time of discharge, lethality was denied and mood and anxiety were better managed. ? The patient endorsed a plan to avoid all drugs of abuse and follow up with the aftercare recommendations of the treatment team.? The patient was evaluated and deemed to be absent credible lethality and had achieved the maximum benefit from an inpatient hospitalization, and so was discharged. The patient was placed on a tapering dose of librium for the next 12 days and was strongly encouraged to attend weekly psychotherapy and continued medication management on lexapro. She and her family members were informed that the patient is to DISCONTINUE her previously prescribed XANAX (alprazolam) and AMBIEN. Mental Status Exam MSE Comments: This is a slender older white female in hospital scrubs with limited grooming and eye contact. No abnormal movements except for significant psychomotor retardation and no noteworthy tremulousness. She was cooperative with exam in mild distress. Speech was normal in rate and normal in volume today. Mood described as good. Her affect was mood incongruent and restricted. Thought process was linear. Thought content: Patient denied suicidal or homicidal ideation, there were no delusions. She denied any auditory or visual hallucinations. Attention and concentration were improving and memory appeared mostly reliable but none were formally tested. She is alert and oriented x person and place, year and month today. Insight was limited. Her judgment and impulse control appeared fair. Discharge Data Studies Completed and Pending: Completed Studies During Hospitalization Category Date Time Status XR KUB portable 7 [id number] Stat Exams 06/17/23 12:53 Completed Laboratory Results WBC 5.54 10^3/uL (3.2 9-11.43) 06/19/23 04:34 RBC 2.99 10^6/uL (3.8 5-5.65) L 06/19/23 04:34 Hgb 11.70 g/dL (11.27 -16.99) 06/19/23 04:34 Hct 33.0 % (36-47) L 06/19/23 04:34 MCV 110.4 fl (85-98) H 06/19/23 04:34 MCH 39.1 pg (27-33) H 06/19/23 04:34 MCHC 35.5 g/dL (30-55) 06/19/23 04:34 RDW 12.1 % (12.1-15.1 ) 06/19/23 04:34 Plt Count 132 10^3/cmm (157 -399) L 06/19/23 04:34 MPV 11.6 fL (7.4-10.4 ) H 06/19/23 04:34 Neut % (Auto) 49.9 % 06/19/23 04:34 Lymph % (Auto) 37.0 % 06/19/23 04:34 Conway % (Auto) 11.0 % 06/19/23 04:34 Eos % (Auto) 0.9 % 06/19/23 04:34 Baso % (Auto) 0.7 % 06/19/23 04:34 Neut # (Auto) 2.76 10^3/uL (1.8 -7.7) 06/19/23 04:34 Lymph # (Auto) 2.1 10^3/uL (0.8- 4.8) 06/19/23 04:34 Conway # (Auto) 0.6 10^3/uL (0.2- 0.9) 06/19/23 04:34 Eos # (Auto) 0.1 10^3/uL (0.0- 0.8) 06/19/23 04:34 Baso # (Auto) 0.0 10^3/uL (0.0- 0.1) 06/19/23 04:34 Nucleated RBC % (a uto) 0 % 06/19/23 04:34 Nucleated RBCs # 0.0 /100WBC 06/19/23 04:34 Sodium 134 mmol/L (136-1 45) L 06/19/23 04:34 Potassium 3.7 mmol/L (3.5-5 .1) 06/19/23 04:34 Chloride 102 mmol/L (98-10 7) 06/19/23 04:34 Carbon Dioxide 22 mmol/L (22-29) 06/19/23 04:34 Anion Gap 13.7 (5-19) 06/19/23 04:34 BUN 6 mg/dL (8-23) L 06/19/23 04:34 Creatinine 0.7 mg/dL (0.5-0. 9) 06/19/23 04:34 GFR Calculation 84.2 mL/min (90-1 30) L 06/19/23 04:34 Glucose 113 mg/dL (65-115 ) 06/19/23 04:34 Calculated Osmolal ity 276 mOsm/kg (285- 295) L 06/19/23 04:34 Calcium 8.1 mg/dL (8.5-10 .5) L 06/19/23 04:34 Magnesium 2.0 mg/dL (1.7-2. 3) 06/18/23 03:32 Total Bilirubin 0.7 mg/dL (0.15-1 .2) 06/19/23 04:34 AST 99 U/L (0-32) H 06/19/23 04:34 ALT 88 U/L (0-33) H 06/19/23 04:34 Alkaline Phosphata se 125 U/L (35-105) H 06/19/23 04:34 Total Protein 4.7 g/dL (6.6-8.7 ) L 06/19/23 04:34 Albumin 2.9 g/dL (3.5-5.2 ) L 06/19/23 04:34 Globulin 1.8 g/dL (1.3-4.6 ) 06/19/23 04:34 Lipase 55 U/L (13-60) 06/17/23 13:29 Urine Color Dark yellow (Yel low) 06/18/23 00:47 Urine Appearance Clear (CLEAR) 06/18/23 00:47 Urine pH 6.5 (5-7) 06/18/23 00:47 Ur Specific Gravit y 1.015 (1.005-1.0 30) 06/18/23 00:47 Urine Protein Neg (Negative) 06/18/23 00:47 Urine Glucose (UA) Norm (Normal) 06/18/23 00:47 Urine Ketones 2+ (Negative) H 06/18/23 00:47 Urine Blood 2+ (Negative) H 06/18/23 00:47 Urine Nitrate Negative (Negati ve) 06/18/23 00:47 Urine Bilirubin 1+ (Negative) H 06/18/23 00:47 Urine Urobilinogen Neg mg/dL (Negati ve) 06/18/23 00:47 Ur Leukocyte Carolynn ase Negative (Negati ve) 06/18/23 00:47 Urine RBC 0-4 /hpf (0-2) H 06/18/23 00:47 Urine WBC 0-4 /hpf (0-5) H 06/18/23 00:47 Ur Squamous Epith Cells 10-15 /hpf (0-5) H 06/18/23 00:47 Amorphous Sediment Not Reportable 06/18/23 00:47 Urine Bacteria Trace /hpf (NONE) 06/18/23 00:47 Urine Mucus 1+ /hpf 06/18/23 00:47 Salicylates < 0.3 mg/dL (3-10 ) L 06/17/23 13:29 Urine Opiates Scre en Negative ng/mL (N egative) 06/18/23 00:47 Acetaminophen < 5.0 ug/mL (10-3 0) L 06/17/23 13:29 Ur Barbiturates Sc reen Negative ng/mL (N egative) 06/18/23 00:47 Ur Phencyclidine S crn Negative ng/mL (N egative) 06/18/23 00:47 Ur Amphetamines Sc reen Negative ng/mL (N egative) 06/18/23 00:47 U Benzodiazepines Scrn Positive ng/mL (N egative) H 06/18/23 00:47 Urine Cocaine Scre en Negative ng/mL (N egative) 06/18/23 00:47 U Marijuana (THC) Screen Negative ng/mL (N egative) 06/18/23 00:47 Ethyl Alcohol 144 mg/dL (0-10) H 06/17/23 13:29 Vitals: Last Vital Signs Temp 97.7 F 06/24/23 11:00 Pulse 65 06/24/23 11:00 Resp 15 06/24/23 11:00 BP 97/68 06/24/23 11:00 Pulse Ox 98 06/24/23 11:00 O2 Del Method Room Air 06/23/23 06:00 Discharge Plan Discharge Patient Disposition: Home Condition: Stable Prescriptions: New Vitamin B-1 (mononitrate) 100 mg Tablet 100 mg PO DAILY Qty: 30 1RF chlordiazepoxide HCl 10 mg capsule 10 mg PO DIRECTED Qty: 19 0RF Rx Instructions: Take one tablet twice a day for 7 days then decrease to one tablet once a day for 5 days then discontinue Continued rosuvastatin 10 mg tablet 10 mg PO QPM folic acid 1 mg Tablet 1 mg PO DAILY Qty: 30 0RF thiamine mononitrate (vit B1) [Vitamin B-1 (mononitrate)] 100 mg Tablet 100 mg PO DAILY Qty: 30 0RF multivitamin with folic acid [Thera] 400 mcg Tablet 1 tab PO DAILY Qty: 30 0RF Protonix 40 mg tablet,delayed release (DR/EC) 40 mg PO BID PRN (Reason: Acid Reflux) Lexapro 20 mg tablet 30 mg PO DAILY Qty: 45 1RF Discontinued alprazolam 1 mg tablet 1 mg PO BID zolpidem 10 mg tablet 10 mg PO BEDTIME Discharge Orders: Discharge Order (Routine); Ordered 06/24/23 Ordered By: Tacos Esparza Referrals: [facility] [Other] (7 days/week 8am-6pm) [facility] [Other] (Application has been sent. ) [facility] LCSW [Other] - 07/13/23 2:30 pm [facility] Sweet [Other] - 06/26/23 12:00 pm (Next group meet at [facility] on Monday, June 26, 2023 ? 12:00?2:00pm ) [facility] [Outside] - 06/25/23 7:30 am (Initial appointment 06/25/23 @ 7:30 am with Kt Gayle.) Davey Scott MD [Primary Care Provider] - 06/29/23 12:00 pm (Follow up) Discharge Diet: Usual diet Discharge Activity: Resume usual activity Patient Instructions: Alcoholism, Alcohol Withdrawal, Chlordiazepoxide/Clidinium (By mouth) (Librax), Thiamine (By mouth), Escitalopram (By mouth) (Lexapro), Depression (DC), Grief and Loss (DC), Generalized Anxiety Disorder (GEN), Opioid Safety Discharge Attestations NPU Time Spent in Discharge Care*: less than 30 min Specific Discharge Activities: Specific discharge activities: educating patient and documenting/other paperwork Coding Level of Care Code Acute Code for Chg Fwd Diagnoses Anxiety F41.9 Bereavement Z63.4 Alcohol use disorder, severe, dependence F10.20 Alcohol withdrawal syndrome F10.939 Persistent complex bereavement disorder F43.81 Depression F32.A
== END 2023-06-24 13:03 | disposition home or self-care (01) | DRG 897 ==
LOC: ER 16:17 → ICU 16:47 → MEDSURG 06-18 18:56 → NP 06-19 16:22
PROVIDERS: Emergency Medicine; Admitting Provider Student in an Organized Health Care Education/Training Program; Emergency Provider Family Medicine; PCP Family Medicine; Visit Provider Psychiatry & Neurology Psychiatry
DX: F10.239 Alcohol dependence with withdrawal, unspecified (principal); E87.20 Acidosis, unspecified; Y90.6 Blood alcohol level of 120-199 mg/100 ml; F43.81 Prolonged grief disorder; F32.A Depression, unspecified; F41.1 Generalized anxiety disorder; F17.210 Nicotine dependence, cigarettes, uncomplicated; R63.4 Abnormal weight loss; Z79.899 Other long term (current) drug therapy; E78.5 Hyperlipidemia, unspecified; R74.01 Elevation of levels of liver transaminase levels
CPT/HCPCS: 36415; 74018; 80053; 80306; 80307; 81001; 83690; 83735; 85025; 96361; 96372; 96374; 97165; 99285; J1644; J2060; J3411; J7030

== ENCOUNTER 2023-09-08 12:45 | Observation (INO) | payer BC, SELFPAY ==
[2023-09-08 12:48] VITALS: BP 117/89; PULSE 109; RESP 18; TEMP 36.6; O2SAT 100
--- NOTE | 2023-09-08 13:54 | CTR_ITS ---
PROCEDURE INFORMATION: Exam: CTA Chest With Contrast Exam date and time: 09/08/2023 3:15 PM Age: 62 years old Clinical indication: Other: Weight loss; Additional info: Pain TECHNIQUE: Imaging protocol: Computed tomographic angiography of the chest with contrast. Exam focused on the arteries. 3D rendering (Not supervised by radiologist): MIP and/or 3D reconstructed images were created by the technologist. Radiation optimization: All CT scans at this facility use at least one of these dose optimization techniques: automated exposure control; mA and/or kV adjustment per patient size (includes targeted exams where dose is matched to clinical indication); or iterative reconstruction. Contrast material: OMNI 350; Contrast volume: 43 ml; Contrast route: INTRAVENOUS (IV); COMPARISON: CT lung screening [id number] 01/30/2021 9:41 AM RADIATION DOSE METRICS: Total DLP (mGy-cm): 109 FINDINGS: Pulmonary arteries: No evidence of pulmonary thromboembolism. Aorta: No evidence of aneurysmal dilatation of the thoracic aorta. Detailed evaluation for acute aortic abnormality is limited by the paucity of intraluminal contrast given tailoring of the exam for evaluation of PE. Thyroid: Grossly unremarkable. Lungs: No focal consolidation. No evidence of pneumonia. Pleural spaces: No evidence of pleural effusion. No pneumothorax. Heart: No cardiomegaly. No pericardial effusion. Mediastinal space: No evidence of mediastinal mass, fluid collection or hematoma. Lymph nodes: No mediastinal or hilar adenopathy. Bones/joints: No evidence of acute fracture or aggressive osseous lesion. Soft tissues: No evidence of fluid collection or hematoma in the superficial soft tissues. PROCEDURE INFORMATION: Exam: CT Abdomen And Pelvis With Contrast Exam date and time: 09/08/2023 3:15 PM Age: 62 years old Clinical indication: Other: Weight loss; Additional info: Pain TECHNIQUE: Imaging protocol: Computed tomography of the abdomen and pelvis with contrast. Radiation optimization: All CT scans at this facility use at least one of these dose optimization techniques: automated exposure control; mA and/or kV adjustment per patient size (includes targeted exams where dose is matched to clinical indication); or iterative reconstruction. Contrast material: OMNI 350; Contrast volume: 43 ml; Contrast route: INTRAVENOUS (IV); COMPARISON: CT abdomen pelvis wo con [id number] 02/17/2023 12:14 PM RADIATION DOSE METRICS: Total DLP (mGy-cm): 288 FINDINGS: Liver: Hepatic steatosis. No evidence of focal hepatic lesion. 9 mm right hepatic lobe hypodensity most suggestive of a hepatic cyst Gallbladder and biliary ducts: Unremarkable. No intra-hepatic or extra-hepatic biliary dilatation. Pancreas: Unremarkable. Spleen: Unremarkable. Adrenal glands: Unremarkable. Kidneys and ureters: No renal parenchymal abnormality. No hydronephrosis or ureteral stone. Stomach and bowel: Wall thickening of the ascending colon, rectosigmoid and a few prominent thickened loops of proximal small bowel most suggestive of an infectious or inflammatory enterocolitis. No evidence of bowel obstruction. There is wall thickening of the gastric cardia near the GE junction. Appendix: Normal appendix. Intraperitoneal space: No evidence of free air or fluid collection. Vasculature: No aneurysmal dilatation or dissection of the abdominal aorta. The celiac trunk, SMA and TRE are grossly patent. No evidence of IVC thrombus. The portal vein, SMV and splenic veins are grossly patent. Lymph nodes: No adenopathy. Urinary bladder: Grossly unremarkable. Reproductive: Grossly unremarkable. Bones/joints: No evidence of acute fracture or aggressive osseous lesion. Soft tissues: No evidence of fluid collection or hematoma in the superficial soft tissues. CT/CT angio chest w abd pel w con IMPRESSION: 1. No evidence of PE or acute aortic abnormality. IMPRESSION: 1. Findings most suggestive of an infectious or inflammatory enterocolitis. Consider follow-up colonoscopy to exclude an underlying mucosal lesion given clinical history. 2. Mild wall thickening of the gastric cardia near the GE junction, nonspecific. If symptomatic, consider GI evaluation and endoscopy to exclude an underlying mucosal lesion of clinical history.
--- NOTE | 2023-09-08 14:05 | ED_ITS ---
HPI - Weakness 2 General: Chief complaint: Weakness Stated complaint: Weakness Time Seen by Provider: 09/08/23 13:48 Source: patient Mode of arrival: ambulatory Limitations: no limitations History of Present Illness: 62-year-old female who is states she has been having decreased appetite along with weight loss it has been going on for the last year she has been seen for this in the past states she is continues to lose weight patient does weigh 77 pounds here today. She was admitted recently she had a scope not able to find any abnormality states this last week her appetites been much worse and feeling much weaker than normal. Associated symptoms: Denies chest pain, chills, fever(s), headache(s), nausea or vomiting Review of Systems 2 Const: Reports: change in appetite, change in weight, fatigue and malaise; Denies: fever(s), chills or body aches ENMT: Denies: throat pain or dental pain Card: Denies: chest pain Resp: Denies: dyspnea GI: Denies: abdominal pain, nausea, vomiting or diarrhea Musc: Denies: neck pain or back pain Skin/Breast: Denies: rash Neuro: Denies: headache(s) PFSH ED 2 PFSH: Medical History Persistent complex bereavement disorder Colonoscopy planned 2020 Hyperlipidemia Sleep disturbance Anxiety Surgical History H/O lateral meniscus repair of right knee History of removal of ovarian cyst Family History Mother Stroke Father Heart disease Myocardial infarction Sister Breast cancer Social History Smoking and tobacco/nicotine status: current every day tobacco/nicotine user cigarettes Packs smoked per day: 0.5 Years cigarettes smoked: 20 Alcohol intake: current Alcohol intake frequency: 0-2 Drinks per Day Alcohol type: beer and hard liquor Substance/Drug Use: never Lives independently: Yes Marital status: / Physical Exam 2 Const: COMMON NORMALS: patient oriented x3 GENERAL APPEARANCE: frail appearing HENMT: COMMON NORMALS: normocephalic and atraumatic HEAD & SCALP: n ormocephalic and atraumatic Neck/C-Spine: COMMON NORMALS: full ROM and supple Chest: COMMONS NORMALS: normal inspection of the chest Resp: COMMON NORMALS: normal respiratory effort, No retractions, No use of accessory muscles and clear to auscultation bilaterally AUSCULTATION: clear to auscultation bilaterally Cardio: COMMON NORMALS: regular rate, regular rhythm and No murmurs present (Cardio) RATE: regular rate RHYTHM: regular rhythm GI: COMMON NORMALS: Normal to inspection, nondistended, normoactive bowel sounds present, Soft to palpation, non-tender and no masses PALPATION: Yes Soft to palpation Extremity: COMMON NORMALS: normal to inspection and full ROM Neuro: COMMON NORMALS: patient oriented x3, moves all extremities and no focal motor deficits Psych: COMMON NORMALS: mental status grossly normal, Normal thought process present and cooperative THOUGHT PROCESS: Normal thought process present Skin: COMMON NORMALS: no rashes or lesions noted and no wounds GENERAL SKIN EXAM: no rashes or lesions noted Course 2 Vital Signs: Vital signs: Vital Signs Temperature 97.9 F 09/08/23 12:48 Pulse Rate 77 09/08/23 14:20 Respiratory Rate 18 09/08/23 12:48 Blood Pressure 124/87 09/08/23 14:20 Pulse Oximetry 100 09/08/23 14:20 Oxygen Delivery Me thod Room Air 09/08/23 14:20 MDM - Weakness Medical Decision Making Patient presents here with hypokalemia she is also had generalized weakness malaise and weight loss with failure to thrive I spoke to the hospitalist will admit at this time did order oral potassium in the ER. Medical Records I reviewed the patient's medical records. Lab Data I reviewed the patient's lab results. 09/08/23 13:45 09/08/23 13:45 Radiology Impressions Chest/Abdomen/Pelvis CT 09/08/23 13:54 IMPRESSION: 1. No evidence of PE or acute aortic abnormality. IMPRESSION: 1. Findings most suggestive of an infectious or inflammatory enterocolitis. Consider follow-up colonoscopy to exclude an underlying mucosal lesion given clinical history. 2. Mild wall thickening of the gastric cardia near the GE junction, nonspecific. If symptomatic, consider GI evaluation and endoscopy to exclude an underlying mucosal lesion of clinical history. Laboratory Results WBC 7.83 10^3/uL (3.29-11.43) 09/08/23 13:45 RBC 3.74 10^6/uL (3.85-5.65) L 09/08/23 13:45 Hgb 14.00 g/dL (11.27-16.99) 09/08/23 13:45 Hct 39.3 % (36-47) 09/08/23 13:45 MCV 105.1 fl (85-98) H 09/08/23 13:45 MCH 37.4 pg (27-33) H 09/08/23 13:45 MCHC 35.6 g/dL (30-55) 09/08/23 13:45 RDW 13.6 % (12.1-15.1) 09/08/23 13:45 Plt Count 330 10^3/cmm (157-399) 09/08/23 13:45 MPV 10.8 fL (7.4-10.4) H 09/08/23 13:45 Neut % (Auto) 57.5 % 09/08/23 13:45 Lymph % (Auto) 31.8 % 09/08/23 13:45 [place] % (Auto) 9.1 % 09/08/23 13:45 Eos % (Auto) 0.8 % 09/08/23 13:45 Baso % (Auto) 0.5 % 09/08/23 13:45 Neut # (Auto) 4.51 10^3/uL (1.8-7.7) 09/08/23 13:45 Lymph # (Auto) 2.5 10^3/uL (0.8-4.8) 09/08/23 13:45 [place] # (Auto) 0.7 10^3/uL (0.2-0.9) 09/08/23 13:45 Eos # (Auto) 0.1 10^3/uL (0.0-0.8) 09/08/23 13:45 Baso # (Auto) 0.0 10^3/uL (0.0-0.1) 09/08/23 13:45 Nucleated RBC % (auto) 0.3 % 09/08/23 13:45 Nucleated RBCs # 0.0 /100WBC 09/08/23 13:45 PT 11.60 SECONDS (12.1-14.9) L 09/08/23 13:45 INR 0.83 (0.8-1.2) 09/08/23 13:45 Specimen Type Arterial 09/08/23 14:49 Sample Site Brachial, left 09/08/23 14:49 ABG pH 7.44 (7.35-7.45) 09/08/23 14:49 ABG pCO2 31.4 mmHg (35-45) L 09/08/23 14:49 ABG pO2 90.4 mmHg (80.0-100.0) 09/08/23 14:49 ABG PO2/FiO2 Ratio 452 09/08/23 14:49 ABG HCO3 21.5 mmol/L (22-26) L 09/08/23 14:49 ABG Base Excess -2.0 mmol/L (-2.0-2.0) 09/08/23 14:49 [place] Test Pos 09/08/23 14:49 Hematocrit 31.4 % (37-47) L 09/08/23 14:49 O2 Delivery Device Room air 09/08/23 14:49 FiO2 21.0 % 09/08/23 14:49 Pick Up Attendant ID Cak 09/08/23 14:49 Sodium 135 mmol/L (136-145) L 09/08/23 13:45 Potassium 2.6 mmol/L (3.5-5.1) L* 09/08/23 13:45 Chloride 88 mmol/L (98-107) L 09/08/23 13:45 Carbon Dioxide 21 mmol/L (22-29) L 09/08/23 13:45 Anion Gap 28.6 (5-19) H 09/08/23 13:45 BUN 12 mg/dL (8-23) 09/08/23 13:45 Creatinine 0.6 mg/dL (0.5-0.9) 09/08/23 13:45 GFR Calculation 100.6 mL/min (90-130) 09/08/23 13:45 Glucose 66 mg/dL (65-115) 09/08/23 13:45 Calculated Osmolality 278 mOsm/kg (285-295) L 09/08/23 13:45 Lactic Acid 1.2 mmol/L (0.5-2.2) 09/08/23 13:45 Calcium 8.7 mg/dL (8.5-10.5) 09/08/23 13:45 Magnesium 1.6 mg/dL (1.7-2.3) L 09/08/23 13:45 Total Bilirubin 0.5 mg/dL (0.15-1.2) 09/08/23 13:45 AST 22 U/L (0-32) 09/08/23 13:45 ALT 16 U/L (0-33) 09/08/23 13:45 Alkaline Phosphatase 125 U/L (35-105) H 09/08/23 13:45 Total Protein 6.2 g/dL (6.6-8.7) L 09/08/23 13:45 Albumin 3.5 g/dL (3.5-5.2) 09/08/23 13:45 Globulin 2.7 g/dL (1.3-4.6) 09/08/23 13:45 Lipase 22 U/L (13-60) 09/08/23 13:45 TSH 1.72 uIU/mL (0.27-4.20) 09/08/23 13:45 Ethyl Alcohol < 10 mg/dL (0-10) 09/08/23 13:45 Serum Ketones Positive (Negative) H 09/08/23 13:45 All radiology interpretation(s) finalized by discharge Discharge Plan Discharge Patient Disposition: Admitted As Inpatient Clinical Impression: Hypokalemia, Adult failure to thrive Condition: Stable Prescriptions: No Action rosuvastatin 10 mg tablet 10 mg PO QPM folic acid 1 mg Tablet 1 mg PO DAILY Qty: 30 0RF thiamine mononitrate (vit B1) [Vitamin B-1 (mononitrate)] 100 mg Tablet 100 mg PO DAILY Qty: 30 0RF multivitamin with folic acid [Thera] 400 mcg Tablet 1 tab PO DAILY Qty: 30 0RF Protonix 40 mg tablet,delayed release (DR/EC) 40 mg PO BID PRN (Reason: Acid Reflux) Vitamin B-1 (mononitrate) 100 mg Tablet 100 mg PO DAILY Qty: 30 1RF chlordiazepoxide HCl 10 mg capsule 10 mg PO DIRECTED Qty: 19 0RF Rx Instructions: Take one tablet twice a day for 7 days then decrease to one tablet once a day for 5 days then discontinue Lexapro 20 mg tablet 30 mg PO DAILY Qty: 45 1RF Referrals: Davey Scott MD [Primary Care Provider] - Coding Level of Care Code ED [employer] for [facility] Lissy
[2023-09-08 14:12] LABS: Basophils % 0.5 %; Eosinophils # 0.1 10^3/uL (0.0-0.8); Eosinophils % 0.8 %; Hematocrit 39.3 % (36-47); Lymphocytes # 2.5 10^3/uL (0.8-4.8); Lymphocytes % 31.8 %; Mean Corpuscular HGB Conc 35.6 g/dL (30-55); Mean Corpuscular Hemoglobin 37.4 pg (27-33); Mean Corpuscular Volume 105.1 fl (85-98); Mean Platelet Volume 10.8 fL (7.4-10.4); Monocytes # 0.7 10^3/uL (0.2-0.9); Monocytes % 9.1 %; Neutrophils # 4.51 10^3/uL (1.8-7.7); Neutrophils % 57.5 %; Nucleated Red Blood Cells % 0.3 %; Platelet Count 330 10^3/cmm (157-399); Red Blood Count 3.74 10^6/uL (3.85-5.65); Red Cell Distribution Width 13.6 % (12.1-15.1); White Blood Count 7.83 10^3/uL (3.29-11.43)
[2023-09-08] MEDS: sodium chloride 0.9% 1,000 ML 999 ML IV ×2 (14:19→15:12)
[2023-09-08 14:20] VITALS: BP 124/87; PULSE 77; O2SAT 100
[2023-09-08 14:29] LABS: INR 0.83 (0.8-1.2)
[2023-09-08 14:34] LABS: Alanine Aminotransferase 16 U/L (0-33); Albumin Level 3.5 g/dL (3.5-5.2); Alkaline Phosphatase 125 U/L (35-105); Anion Gap 28.6 (5-19); Aspartate Amino Transferase 22 U/L (0-32); Blood Urea Nitrogen 12 mg/dL (8-23); Calcium 8.7 mg/dL (8.5-10.5); Carbon Dioxide 21 mmol/L (22-29); Chloride 88 mmol/L (98-107); Globulin 2.7 g/dL (1.3-4.6); Glomerular Filtration Rate 100.6 mL/min (90-130); Glucose 66 mg/dL (65-115); Lipase 22 U/L (13-60); Magnesium 1.6 mg/dL (1.7-2.3); Osmolality Calculated 278 mOsm/kg (285-295); Sodium 135 mmol/L (136-145); Thyroid Stimulating Hormone 1.72 uIU/mL (0.27-4.20); Total Bilirubin 0.5 mg/dL (0.15-1.2); Total Protein 6.2 g/dL (6.6-8.7)
[2023-09-08 14:36] LABS: Alcohol Level < 10 mg/dL (0-10); Potassium 2.6 mmol/L (3.5-5.1)
[2023-09-08 15:00] LABS: ABG PCO2 31.4 mmHg (35-45); ABG PH Result 7.44 (7.35-7.45); Arterial Blood Gas Hematocrit 31.4 % (37-47); Blood Gas Allen Test Pos; Blood Gas Operator Identificat CAK; Blood Gas Sample Site Brachial, left; Blood Gas Sample Type Arterial; HCO3 ABG 21.5 mmol/L (22-26); Oxygen Device ROOM AIR; PO2 ABG 90.4 mmHg (80.0-100.0); PO2 FiO2 Ratio Arterial Blood 452
[2023-09-08] MEDS: potassium chloride ER 20 mEq Tablet 40 MEQ PO (15:00)
[2023-09-08] MEDS: magnesium sulfate premix 1 GM/100 ML PIGGYBACK IV ×2 (15:02→17:16)
[2023-09-08] MEDS: iohexol 350 mg/mL 500 mL Btl (per mL) IV (15:19)
[2023-09-08 15:29] LABS: Lactic Sepsis W/Reflex 1.2 mmol/L (0.5-2.2)
[2023-09-08 15:34] LABS: Ketone (Acetest) Serum Positive (Negative)
[2023-09-08] MEDS: LORazepam 2 mg/mL INJ 10 mL MDV 0.5 MG IVP (17:15)
[2023-09-08] MEDS: potassium chloride ER 20 mEq Tablet 80 MEQ PO (17:16)
--- NOTE | 2023-09-08 17:29 | P.HP_ITS ---
Providers/Chief Complaint 2 Primary Care Provider: Davey Scott MD Chief Complaint: Weakness History of Present Illness Alicia Morse is a 62 year old female with past medical history of alcoholism, depression who was last admitted to Neuropsych Unit on 07/07 was brought into the ER today because of decreased appetite and weight loss which has been ongoing for last 1 year. patient's had over a year ago and since then she has lost up to 77 pounds. She needed an inpatient admission in June 2023 for severe depression at which time she was started on Lexapro. She was discharged home where she typically lives with her brother who helps take care of her. Her daughter reports patient was doing well for approximately 3 to 4 weeks after discharge, however since then has started to clinically deteriorate again. In contrast to prior, patient now expresses an interest in eating, daughter reports that she watches several cooking channels on her phone and expresses interest in eating a variety of foods such as steak et, funnel cakes etc., however when this is brought to her she takes a bite and starts to gag right after. She has also been having vomiting and diarrhea shortly after eating. About 2 weeks ago she had an episode of what appears to be syncope where she passed out and needed to be caught by her daughter. Her skin has been easily bruised, tears easily. She continues to lose weight and now weighs 41 kg with a BMI of 17. CT of the chest abdomen and pelvis today shows nonspecific thickening of the GE junction. Patient reportedly had an endoscopy with her primary care physician earlier this year, report requested from Emir Guzman. Additional note is made of ascending colon and rectosigmoid thickening reflecting possible enterocolitis. Per family she has had a colonoscopy within the past year, no abnormalities were detected as far as they are aware. No complaints of abdominal pain. Has had recurrent diarrhea made worse after eating. 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 Review of Systems 2 General: Reports: 10 or more systems reviewed and unremarkable except in HPI and below Const: Reports: change in appetite, change in weight, change in sleep pattern and daytime sleepiness; Denies: fever(s), chills, body aches, malaise, night sweats, diaphoresis or snoring Eyes: Denies: change in vision, blurry vision, photophobia, eye discomfort or eye discharge ENMT: Denies: throat pain, enlarged tonsils, hoarseness, mouth pain, oral sores, dry mouth, tinnitus, nasal congestion or post nasal drip Card: Denies: chest pain, palpitations, irregular heart rhythm, edema, swelling of feet/ankles, lightheadedness, syncope, pre-syncope, dyspnea on exertion, orthopnea, leg pain with exertion or acrocyanosis Resp: Denies: dyspnea, productive cough, non-productive cough, wheezing, stridor, pain on inspiration, change in phlegm color, hemoptysis or chest congestion GI: Reports: diarrhea, GI cramping and change in bowel habits; Denies: abdominal pain, nausea, vomiting, hematemesis, coffee ground emesis, dysphagia, heartburn, constipation, bloating, pain on defecation, hematochezia or melena : Denies: flank pain, dysuria, urinary frequency, urinary urgency, urinary hesitancy, nocturia or hematuria Musc: Denies: neck pain, back pain, extremity pain, joint pain, joint swelling, joint redness, joint stiffness or limited range of motion Neuro: Denies: headache(s), numbness in extremities, weakness in extremities, sensory changes, lack of coordination, difficulty walking, frequent falls, dizziness, vertigo, confusion, Slurred speech present, difficulty communicating thoughts or seizure-like activity Psych: Denies: anxiety, depression, mood swings, panic attacks, hopelessness or irritability Endo: Reports: tired all the time; Denies: polyuria, polydipsia, cold intolerance, excessive sweating, flushing or heat intolerance Tacos/Lymph: Reports: easy bruising; Denies: easy bleeding All/Imm: Denies: tongue swelling, facial swelling or acute wheezing Medications/Allergies Home Medications Medication Instructions Recorded Confirmed Last Taken Type rosuvastatin 10 mg tablet 10 mg PO QPM 02/17/23 09/08/23 02/15/23 History folic acid 1 mg tablet 1 mg PO DAILY #30 tabs 02/18/23 09/08/23 Unknown Rx multivitamin with folic acid 400 1 tab PO DAILY #30 tabs 02/18/23 09/08/23 Unknown Rx mcg tablet (Thera) thiamine mononitrate (vit B1) 100 100 mg PO DAILY #30 tabs 02/18/23 09/08/23 Unknown Rx mg tablet (Vitamin B-1 (mononitrate)) pantoprazole 40 mg tablet,delayed 40 mg PO BID PRN Acid Reflux 06/17/23 09/08/23 Unknown History release (Protonix) chlordiazepoxide HCl 10 mg capsule 10 mg PO DIRECTED #19 caps 06/24/23 09/08/23 Unknown Rx escitalopram oxalate 20 mg tablet 30 mg (1.5 x 20 mg) PO DAILY #45 06/24/23 09/08/23 Unknown Rx (Lexapro) tabs thiamine mononitrate (vit B1) 100 100 mg PO DAILY #30 tabs 06/24/23 09/08/23 Unknown Rx mg tablet (Vitamin B-1 (mononitrate)) Allergies Allergy/AdvReac Type Severity Reaction Status Date / Time No Known Allergies Allergy Verified 06/17/23 13:16 PFSH Acute 2 PFSH: Medical History Persistent complex bereavement disorder Colonoscopy planned 2020 Hyperlipidemia Sleep disturbance Anxiety Surgical History H/O lateral meniscus repair of right knee History of removal of ovarian cyst Family History Mother Stroke Father Heart disease Myocardial infarction Sister Breast cancer Social History Smoking and tobacco/nicotine status: current every day tobacco/nicotine user cigarettes Packs smoked per day: 0.5 Years cigarettes smoked: 20 Alcohol intake: current Alcohol intake frequency: 0-2 Drinks per Day Alcohol type: beer and hard liquor Substance/Drug Use: never Lives independently: Yes Marital status: / Vitals/I&O/Wt Last Vital Signs Temp 97.9 F 09/08/23 12:48 Pulse 77 09/08/23 14:20 Resp 18 09/08/23 12:48 BP 124/87 09/08/23 14:20 Pulse Ox 100 09/08/23 14:20 O2 Del Method Room Air 09/08/23 14:20 09/08/23 09/08/23 09/08/23 06:59 14:59 22:59 Intake Total 100 / 100 Balance 100 / 100 Weight last 48 hrs Weight 34.927 kg Physical Exam 2 Narrative: General: No acute distress, AO x3, elderly flare frail-appearing lady HEENT: PERRLA, pupils bilaterally equal and reactive Chest: Normal vesicular breath sounds, no added sounds, equal good air entry bilaterally CVS: S1-S2 regular, no murmurs, no tachycardia, no gallops, no rubs Abdomen: Soft, nontender, no organomegaly, bowel sounds present Neuro: No focal deficits, no facial deformity, AO x3, power 5/5 in all limbs Data 09/09/23 04:50 09/09/23 04:50 Other Labs: CT/CT angio chest w abd pel w con IMPRESSION: 1. No evidence of PE or acute aortic abnormality. IMPRESSION: 1. Findings most suggestive of an infectious or inflammatory enterocolitis. Consider follow-up colonoscopy to exclude an underlying mucosal lesion given clinical history. 2. Mild wall thickening of the gastric cardia near the GE junction, nonspecific. If symptomatic, consider GI evaluation and endoscopy to exclude an underlying mucosal lesion of clinical history. A&P Assessment and plan (1) Adult failure to thrive: (2) Hypokalemia: (3) High anion gap metabolic acidosis: (4) Hyponatremia: (5) Abnormal weight loss: (6) Depression: (7) Hypomagnesemia: (8) Ketosis: (9) Enterocolitis: Plan Along with poor oral intake and appetite and abnormal weight loss of about 77 pounds in last 1 year. Patient has a history of depression. Currently presenting to the ER with multiple electrolyte abnormality, high nongap metabolic acidosis along with ketosis. Most likely starvation ketosis. Start patient on D5 half NS with 20 minutes of potassium at 50 cc/h. Replace 80 mEq of potassium along with 40 mg IV potassium phosphate. Replace to 1 g IV magnesium. Monitor electrolytes and BMP daily. Will repeat BMP again at 9 PM to monitor hypokalemia. Will consult psychiatry given concerns for significant depression. CT abdomen pelvis done in the ER. Shows GE junction thickening and non specific thickening of small bowel, ascending colon and rectosigmoid She has been having ongoing frequent diarrhea Check C diff Source of water supply is well water- check enteric parasite and bacterial panel Cannot exclude malignancy. Reportedly had Endoscopy and colonoscopy within the past year- records requested from PCP. Patient may need repeat UGIE and colonoscopy given new findings on CT compared to 02/2023. Dietitian consult. Regular diet with Ensure with each meal. Will need to watch for refeeding syndrome. Monitor BMP, magnesium, phosphorus daily for now. Patient does give history of alcohol abuse in the past. Current alcohol level normal. IV thiamine 200 mg daily. Continue with home dose of Lexapro, folic acid, vitamin, rosuvastatin. Check TIBC, TSH, HIV, hepatic panel, urine drug screen, vitamin B12 and folate levels. Attestations 2 Medical Necessity Statement*: Admission for more than 2 midnights for management of failure to thrive in setting of poor oral intake leading to extreme weight loss of over 50 pounds, electrolyte abnormality with acute hypokalemia and high anion gap metabolic acidosis, starvation ketosis Diagnoses Adult failure to thrive R62.7 Hypokalemia E87.6 High anion gap metabolic acidosis E87.29 Hyponatremia E87.1 Abnormal weight loss R63.4 Depression F32.A Hypomagnesemia E83.42 Ketosis E88.89 Enterocolitis K52.9
[2023-09-08 17:47] LABS: Iron 57 ug/dL (37-145); Percent Saturation 38.7 % (20-50); Total Iron Binding Capacity 147 mcg/dl; Unsaturated Iron Binding 90 ug/dL (112-347)
[2023-09-08 18:02] LABS: Procalcitonin 0.12 ng/mL (0-0.5); Vitamin B12 917 pg/mL (232-1245)
[2023-09-08] MEDS: potassium phosphate (mEq K) 40 MEQ in sodium chloride 0.9% (100 ml) 100 ML 27.27 MEQ IV (18:26)
[2023-09-08 18:29] VITALS: BP 113/71; PULSE 82; O2SAT 96
[2023-09-08 18:53] VITALS: BMI 17.8
[2023-09-08 20:00] VITALS: BP 113/75; PULSE 82; RESP 18; TEMP 36.4; O2SAT 97
[2023-09-08] MEDS: D5-NS 0.45% + KCL 20 mEq 20 MEQ/1,000 ML BAG 50 MEQ IV (20:07)
[2023-09-08] MEDS: pantoprazole DR 40 mg Tablet PO (20:08)
[2023-09-08 20:50] LABS: Amphetamines Screen Urine Negative (Negative); Barbiturates Screen Urine Negative (Negative); Benzodiazepines Screen Urine Negative (Negative); Cocaine Screen Urine Negative (Negative); Opiate Screen Urine Negative (Negative); PCP Screen Urine Negative (Negative); THC Screen Urine Negative (Negative)
[2023-09-08 20:57] LABS: Add Urine Microscopic? YES; Bilirubin Urine 1+ (Negative); Blood Urine Neg (Negative); Glucose Urine UA Norm (Normal); Ketones Urine 1+ (Negative); Leukocyte Esterase Urine 2+ (Negative); Nitrate Urine Negative (Negative); Protein Urine Neg (Negative); Urine Appearance Slightly Cloudy (CLEAR); Urine Color Yellow (Yellow); Urobilinogen Urine 1 mg/dL (Negative); pH Urine 6 (5-7)
[2023-09-08 20:58] LABS: Add Urine Culture? No; Bacteria Urine 1+ /hpf; Mucus Urine 1+ /hpf; WBC Urine 15-25 /hpf (0-5)
[2023-09-08 21:12] LABS: HIV 1 & 2 Antibody Non-Reactive (Non-Reactiv); HIV 1 & 2 Antigen Non-Reactive (Non-Reactiv)
[2023-09-08 21:57] LABS: Anion Gap 23.8 (5-19); Blood Urea Nitrogen 9 mg/dL (8-23); Calcium 7.1 mg/dL (8.5-10.5); Carbon Dioxide 17 mmol/L (22-29); Chloride 100 mmol/L (98-107); Glomerular Filtration Rate 124.2 mL/min (90-130); Glucose 49 mg/dL (65-115); Osmolality Calculated 276 mOsm/kg (285-295); Sodium 135 mmol/L (136-145)
[2023-09-08 22:12] LABS: Hepatitis A Antibody IgM Non-Reactive (Nonreactive); Hepatitis B Core AB, Total Non-Reactive (Nonreactive); Hepatitis B Surface AB < 3.5 (11.5-1000); Hepatitis B Surface Antigen Non-Reactive (Nonreactive); Hepatitis C Virus Antibody Non-Reactive (Nonreactive)
[2023-09-08] MEDS: ALPRAZolam 0.5 mg Tablet PO (22:13)
[2023-09-08 22:39] LABS: Potassium 5.8 mmol/L (3.5-5.1)
[2023-09-08 23:13] LABS: Glucose Point of Care 72 mg/dL (70-110)
[2023-09-08 23:46] VITALS: O2SAT 96
[2023-09-09] VITALS (7 sets, daily range): BP systolic 107–129; BP diastolic 72–80; PULSE 67–79; RESP 15–18; TEMP 36.4–36.9; O2SAT 95–99; BMI 16.6
[2023-09-09 05:51] LABS: Basophils % 0.7 %; Eosinophils # 0.1 10^3/uL (0.0-0.8); Eosinophils % 1.4 %; Hematocrit 34.6 % (36-47); Lymphocytes # 2.1 10^3/uL (0.8-4.8); Lymphocytes % 35.6 %; Mean Corpuscular HGB Conc 33.8 g/dL (30-55); Mean Corpuscular Hemoglobin 36.4 pg (27-33); Mean Corpuscular Volume 107.8 fl (85-98); Mean Platelet Volume 11.4 fL (7.4-10.4); Monocytes # 0.6 10^3/uL (0.2-0.9); Monocytes % 9.5 %; Neutrophils # 3.03 10^3/uL (1.8-7.7); Neutrophils % 52.6 %; Nucleated Red Blood Cells % 0 %; Platelet Count 265 10^3/cmm (157-399); Red Blood Count 3.21 10^6/uL (3.85-5.65); Red Cell Distribution Width 14.1 % (12.1-15.1); White Blood Count 5.76 10^3/uL (3.29-11.43)
[2023-09-09 06:21] LABS: Procalcitonin 0.14 ng/mL (0-0.5)
[2023-09-09 06:26] LABS: Alanine Aminotransferase 16 U/L (0-33); Alkaline Phosphatase 111 U/L (35-105); Anion Gap 21.7 (5-19); Aspartate Amino Transferase 24 U/L (0-32); Blood Urea Nitrogen 9 mg/dL (8-23); Calcium 7.4 mg/dL (8.5-10.5); Carbon Dioxide 19 mmol/L (22-29); Chloride 101 mmol/L (98-107); Chol HDL Ratio 5.74 mg/dL (0.0-4.40); Cholesterol 270 mg/dL (0-200); Globulin 2.1 g/dL (1.3-4.6); Glomerular Filtration Rate 124.2 mL/min (90-130); Glucose 76 mg/dL (65-115); HDL Cholesterol 47 mg/dL (60-100); LDL Cholesterol Calculated 182 mg/dL (50-129); LDL HDL Ratio 3.87 RATIO (0.00-3.22); Osmolality Calculated 279 mOsm/kg (285-295); Phosphorus 2.3 mg/dL (2.5-4.5); Potassium 5.7 mmol/L (3.5-5.1); Sodium 136 mmol/L (136-145); Total Bilirubin 0.3 mg/dL (0.15-1.2); Total Protein 5.1 g/dL (6.6-8.7); Triglycerides 207 mg/dL (0-150)
[2023-09-09 06:31] LABS: Folate Level 4.7 ng/mL (4.8-37.3)
[2023-09-09 06:43] LABS: Estmated Average Glucose 65; Hemoglobin A1C 3.9 % (4.0-6.0)
[2023-09-09] MEDS: escitalopram 10 mg Tablet 30 MG PO (07:46)
[2023-09-09] MEDS: ALPRAZolam 0.5 mg Tablet PO ×2 (07:46→22:24)
[2023-09-09] MEDS: folic acid 1 mg Tablet PO (07:46)
[2023-09-09] MEDS: multivitamin therapeutic Tablet 1 TAB PO (07:46)
[2023-09-09] MEDS: pantoprazole DR 40 mg Tablet PO ×2 (07:46→18:03)
[2023-09-09] MEDS: sodium polystyrene sulfonate 15 gm/60 mL Btl PO (10:46)
[2023-09-09] MEDS: dextrose 5% 1,000 ML 50 ML IV (10:47)
--- NOTE | 2023-09-09 11:20 | MR_ITS ---
WS: [id number] MRI BRAIN WITHOUT CONTRAST HISTORY: Possible stroke, altered sense of taste COMPARISON: None available. TECHNIQUE: Diffusion imaging, multiplanar T1, T2 and FLAIR imaging obtained. Normal diffusion imaging. No acute infarct. Mild cerebral atrophy. Mild bilateral hippocampal atrophy . Moderate scattered T2 and FLAIR signal hyperintensities throughout the white matter and nearly conf luent in a periventricular distribution. Additional subcortical T2 hyperintense foci predominantly in the frontal lobes. Mild bilateral ischemic change in the [place]. Ventricles and extra-axial spaces are normal. No inferior displacement of cerebellar tonsils. The sella turcica and pituitary gland are unremarkabl e. Dural venous sinuses and [place]cock of [place] demonstrate no abnormality on this unenhanced studies. Paranasal sinuses: Small amount of mucus in the RIGHT sphenoid sinus. Otherwise no air-fluid levels i n the sinuses. Mastoid air cells: Mild RIGHT mastoid air cell effusion. Calvarium and scalp: Intact. MR/MR head wo con* [id number] IMPRESSION: 1. No acute infarct. Normal diffusion imaging. No hemorrhage. 2. Moderate small vessel ischemic type changes in a periventricular distributi on and predominantly within the subcortical frontal white matter. 3. Mild cerebral atrophy. 4. Mild bilateral hippocampal atrophy.
[2023-09-09 11:48] LABS: Glucose Point of Care 118 mg/dL (70-110)
[2023-09-09] MEDS: sodium bicarbonate 8.4% 1 mEq/mL 50mL Syr 100 MEQ IVP (11:53)
[2023-09-09 12:41] LABS: C.Diff PCR (Lab) NEGATIVE (Negative)
--- NOTE | 2023-09-09 14:36 | P.PN_ITS ---
Subjective 2 Subjective: No acute events overnight. Seen with daughter at bedside. On examination patient is lying comfortably in bed states he is feeling extremely chest. Today she states she is not able to eat because bad taste in her mouth. She states salty food tastes too salty and sugary food tastes too sugary. Denies any nausea, vomiting. Vitals/I&O/Wt Last Vital Signs Temp 97.7 F 09/09/23 11:41 Pulse 67 09/09/23 11:41 Resp 17 09/09/23 11:41 BP 129/79 09/09/23 11:41 Pulse Ox 95 09/09/23 11:41 O2 Del Method Room Air 09/09/23 11:41 09/08/23 09/09/23 09/09/23 22:59 06:59 14:59 Intake Total 2308.5106 / 2308.5106 685.833 / 2994.3436 120 / 120 Output Total 350 / 350 Balance 2308.5106 / 2308.5106 335.833 / 2644.3436 120 / 120 Weight last 48 hrs Weight 38.612 kg Weight 41.362 kg Weight 34.927 kg Physical Exam 2 Narrative: General: No acute distress, AO x3, anxious, cachectic, chronically sick appearing, elderly flare frail-appearing lady HEENT: PERRLA, pupils bilaterally equal and reactive Chest: Normal vesicular breath sounds, no added sounds, equal good air entry bilaterally CVS: S1-S2 regular, no murmurs, no tachycardia, no gallops, no rubs Abdomen: Soft, nontender, no organomegaly, bowel sounds present Neuro: No focal deficits, no facial deformity, AO x3, power 5/5 in all limbs Data 09/09/23 04:50 09/09/23 04:50 A&P Assessment and plan (1) Adult failure to thrive: (2) Dysgeusia: (3) Abnormal weight loss: (4) High anion gap metabolic acidosis: (5) Hyponatremia: (6) Anxiety: (7) Depression: (8) Hypomagnesemia: (9) Ketosis: (10) Enterocolitis: (11) Hypokalemia: Plan Adult failure to thrive: Along with poor oral intake and appetite and abnormal weight loss of about 77 pounds in last 1 year. Patient states she is not able to eat anything because of bad taste in her mouth. States salty food tastes too salty and sugary food taste too sweet. Patient has a history of depression. States she is feeling extremely anxious since stopping her Xanax and Ambien. States has not consumed alcohol over last 1 month. Currently presented with high anion gap metabolic acidosis, hyponatremia, hypokalemia and hypomagnesemia. Hypokalemia resolved. Today she does have hyperkalemia. Kayexalate 1 dose along with sodium bicarb 100 mEq one-time. Repeat BMP in evening. Continue with D5 NS at 50 cc/h. Appreciate magnesium and phosphorus levels. Phosphorus level still low. Will repeat in AM. High anion gap metabolic acidosis seems to be resolving. For poor oral intake because of dysgeusia: Patient does have history of significant depression and anxiety in the past. Check thiamine, zinc level. B12 level normal, TSH low normal, no type 2 diabetes mellitus Check MRI brain to rule out stroke. Start on IV thiamine 500 mg IV daily for 5 days. Discussed in detail with psychiatric team. Plan to switch Lexapro to Remeron 15 mg nightly and add Seroquel 25 mg twice daily for anxiety. Xanax 0.5 twice daily as needed for anxiety as well. Discussed in detail with patient's outpatient physician Dr. Scott. As per him she does have tendencies to see antianxiety medications. CT abdomen pelvis done in the ER. Shows GE junction thickening and non specific thickening of small bowel, ascending colon and rectosigmoid. Discussed in detail with patient's outpatient physician. She had endoscopy within the last 2 months which showed ulcerative gastritis with negative biopsies with colonoscopy within last 1 year showing tubular adenoma with advised to repeat in 5 years. C. difficile negative, bacterial and parasite panel awaited. Dietitian consult for calorie intake. Continue with regular diet with Ensure. Watch for refeeding syndrome. CODE STATUS: Discussed with the patient. Daughter would be the DPOA. She does not want any kind of resuscitation including chest compressions or ventilator support. DNR/DNI. Protonix will be sufficient for DVT prophylaxis Heparin 5000 every 12 hourly for DVT prophylaxis Attestations 2 Medical Necessity Statement*: Requires further hospitalization for management of failure to thrive, electrolyte abnormalities including hypomagnesemia, hyponatremia, hyperkalemia in setting of poor oral intake because of dysgeusia, depression, anxiety Diagnoses Adult failure to thrive R62.7 Dysgeusia R43.2 Abnormal weight loss R63.4 High anion gap metabolic acidosis E87.29 Hyponatremia E87.1 Anxiety F41.9 Depression F32.A Hypomagnesemia E83.42 Ketosis E88.89 Enterocolitis K52.9 Hypokalemia E87.6
--- NOTE | 2023-09-09 15:01 | P.NPUHP_ITS ---
Providers/Chief Complaint 2 Admitting Physician: Gamal Andrade MD Primary Care Provider: Davey Scott MD Chief Complaint: Weakness HPI NPU History of Present Illness Alicia Morse is a 62 year old female who presented to the emergency department with the following report: Chief complaint: Weakness Stated complaint: Weakness Time Seen by Provider: 09/08/23 13:48 Source: patient Mode of arrival: ambulatory Limitations: no limitations History of Present Illness: 62-year-old female who is states she has been having decreased appetite along with weight loss it has been going on for the last year she has been seen for this in the past states she is continues to lose weight patient does weigh 77 pounds here today. She was admitted recently she had a scope not able to find any abnormality states this last week her appetites been much worse and feeling much weaker than normal. Associated symptoms: Denies chest pain, chills, fever(s), headache(s), nausea or vomiting. She was admitted to [facility] for definitive treatment of these issues. A psychiatric consult was requested given the continued mental health issues that exist. She presented today with her family around her and them reporting that she really has gone home and basically lays in bed and has not followed through on some of the recommendations including engaging in therapy. She did see a therapist once and it reportedly went well but she never returned as part of this not leaving the home not engaging in things of importance. She denies wanting to but it is unclear if this is what she says in front of the family but actually down deep she still was longing to be with her who unexpectedly and prematurely. We discussed concerns about her great weight loss and her reports of salty foods feeling too salty and sweet things tasting too sweet and her reportedly trying to eat things but then having nausea and possibly vomiting. We discussed working with the quill worker on some refeeding strategies. We also discussed the risks, benefits and alternatives of initiating Remeron 15 mg p.o. nightly and Seroquel 25 mg p.o. twice daily to help with anxiety, depression and appetite. We discussed the plan from primary team for Xanax to be used as a as needed medication as well. An excerpt of her discharge summary from her June hospitalization is included below for context and the fact that there have been no substantive changes. She still lives in her home with her brother who is there to try to be helpful. She still has a son and [id number] that live next-door. She continues to be isolative and not engage in any functional way in her life. Per her 06/23/2023 [facility] inpatient psychiatric discharge summary: Discharge Diagnosis (1) Anxiety: Status: Acute (2) Bereavement: Status: Acute (3) Alcohol use disorder, severe, dependence: Status: Acute (4) Alcohol withdrawal syndrome: Status: Acute (5) Persistent complex bereavement disorder: Status: Acute (6) Depression: Status: Acute Reason for Visit Reason for Visit: dehydrated, no urine/bowel movement Brief History: History of Present Illness Alicia Morse is a 62 year old female who presented to the emergency department with the following report: Chief complaint: Weakness Stated complaint: dehydrated, no urine/bowel movement Time Seen by Provider: 06/17/23 13:45 Source: patient Mode of arrival: ambulatory History of Present Illness: 62-year-old female presents emergency room with severe anxiety. Patient has a prolonged grief reaction with loss of her from last summer. She has began drinking alcohol pretty regularly. She is tremulous and tachycardic on arrival she tells me she is not had anything to drink for a couple of days. She has been eating or drinking to the point where she had an EGD last week to further evaluate we do not have access to the results but family reports that there was no significant finding. She has had a lot of vomiting the last several weeks. She denies any hematemesis or coffee-ground emesis no melena no hematochezia. She admits to drinking regularly and not eating much the last several months. Since loss of her she has lost 50 to 60 pounds. Family at the bedside endorses that she has been drinking regularly. She tells me she only drinks 3-4 6 ounce glasses of wine per day. She states over the last couple of weeks she is actually cut back some. Initially only seen the patient she tells me that her last drink was yesterday. She only had a couple of drinks yesterday. She only drinks wine. She denies use of any other drugs. She is prescribed Xanax and Ambien which she takes regularly. Family reports confidentially that she has been more irritable in the last several months since the loss of her . She has had significant mood swings and at times anger outburst towards family members which is very atypical of her. MD Complaint: generalized weakness Onset (ago): month(s) Duration: constant Location: generalized Relieving factors: none Exacerbating factors: none Associated symptoms: Reports decreased appetite, nausea and vomiting; Denies chest pain, chills, confusion, melena, diaphoresis, dysuria, easy bruising, fever(s), headache(s), myalgias, rash, short of breath or syncope. She was admitted to the ICU for definitive treatment of those issues. A psychiatric consult was requested for concerns of suicidality and continued grieving as well as whether she needs ongoing or inpatient psychiatric care. She was seen in very similar circumstances in February of last year and an excerpt of that consult is included below for context. She resents today reporting that essentially things are unchanged. She was a fairly resistant historian initially answering questions but then in a very odd fashion looking at this automatic typewriter inspector and stating I do not like to be threatened. At this point the interview I simply asked questions about how she had been in the interim since our last interview and she remembered this automatic typewriter inspector and if anything is changed. She could not seem to explain why she was feeling threatened by this automatic typewriter inspector but continued to bring up the subject. At 1 point she did report having some alcohol use on most days and reported that she had drank a little prior to coming into the hospital. I simply identified that her blood alcohol was 144 and suggested possibly she may have been drinking more than she realized and she then talked about not liking being bullied. Once again reviewed the purpose of this automatic typewriter inspector's involvement in her case and hoping to assist her in figuring out how to manage or treat her alcohol use and the concerns with concommittant Xanax use and reporting that we continue to have concerns with the coadministration of Xanax with someone drinking as much as she has been especially at her age and the risk of falls and other cognitive risks. She was unclear of whether Dr. Scott was fully aware of the level of alcohol use she is having along with the Xanax he is prescribing. We discussed needing to hold the Xanax while she is getting Ativan for withdrawal. We discussed concerns for possible need for detox/rehab and/or continued inpatient psychiatric care. Per her 02/18/2023 [facility] inpatient psychiatric consult: History of Present Illness Alicia Morse is a 62 year old female who presented to the emergency department with the following report: Chief complaint: Airway/Esophagus Foreign Body Stated complaint: object lodged in throat Time Seen by Provider: 02/17/23 09:21 Source: patient and family (daughter) Mode of arrival: ambulatory Limitations: no limitations History of Present Illness: Patient is a nice 62-year-old female who presents to ED today along with her daughter for concerns that she has an Advil pill stuck in her throat. Daughter states her mother has had intermittent episodes of vomiting over the past week or so. She states her, herself, has had a productive cough over the past 5 weeks or so and states her mother has recently came down with a cough as well. She feels like some of her vomiting is posttussive. Patient confirms this. She feels like maybe she is getting choked/gagged on phlegm. Daughter states since Thursday/Thursday vomiting has worsened and she hasn't been able to keep much down. She states she overall is feeling very poor. She does not complain of abdominal pain. No changes in bowel movements. No fevers. This morning she states she took an Advil tablet and immediately felt like it got stuck in her throat. She is very anxious about the sensation of a pill being stuck. She has no shortness of breath or difficulty breathing. States she was able to drink some water following the pill ingestion. Patient takes many medications for anxiety and sleep. She recently lost her to metastatic colon cancer and has been struggling since then. She does admit to drinking in the evenings to help her sleep. Onset (ago): hour(s) Severity: moderate Relieving factors: none Exacerbating factors: other (swallowing) Associated symptoms: Reports vomiting; Deny chest pain, dyspnea, headache(s), malaise, nausea, rash, palpitations or syncope Patient was admitted to [facility] for definitive treatment of those issues and concerns were raised about significant anxiety especially against the backdrop of drinking alcohol. Patient presents today reporting that she has no previous hospitalizations but finds herself in a very stressful situation given the recent loss of her and her increased drinking behavior along with the use of Xanax as her rescue medication for her anxiety. We had a fairly lengthy discussion about the impact of benzodiazepines on people as they age and increased risk for bad outcomes given that reality. She is currently on Lexapro 20 mg p.o. daily and we discussed the risks benefits and alternatives of her increasing the Lexapro to 30 mg p.o. daily with a plan to hopefully be able to back down on the Xanax. We had a lengthy discussion about a reasonable pattern of decreasing on Xanax to eliminate/reduce any risk of bad outcome with Xanax and we reviewed that until she was able to report the plan back to this automatic typewriter inspector. We also discussed her talking to her outpatient provider about this plan so that person was aware as well. We reviewed the remainder of her psychosocial history which was noncontributory and is making any decisions as there were no concerns for lethality or need for inpatient psychiatric care. Hospital Course During the hospitalization, the patient had routine laboratory studies which were within normal limits except for a few outliers. Additionally, there was a general medical evaluation which was also within normal limits and revealed no new acute processes. At the time of discharge, lethality was denied and mood and anxiety were better managed. The patient endorsed a plan to avoid all drugs of abuse and follow up with the aftercare recommendations of the treatment team. The patient was evaluated and deemed to be absent credible lethality and had achieved the maximum benefit from an inpatient hospitalization, and so was discharged. The patient was placed on a tapering dose of librium for the next 12 days and was strongly encouraged to attend weekly psychotherapy and continued medication management on lexapro. She and her family members were informed that the patient is to DISCONTINUE her previously prescribed XANAX (alprazolam) and AMBIEN. Meds NPU Home Medications Medication Instructions Recorded Confirmed Last Taken Type rosuvastatin 10 mg tablet 10 mg PO QPM 02/17/23 09/08/23 02/15/23 History folic acid 1 mg tablet 1 mg PO DAILY #30 tabs 02/18/23 09/08/23 Unknown Rx multivitamin with folic acid 400 1 tab PO DAILY #30 tabs 02/18/23 09/08/23 Unknown Rx mcg tablet (Thera) thiamine mononitrate (vit B1) 100 100 mg PO DAILY #30 tabs 02/18/23 09/08/23 Unknown Rx mg tablet (Vitamin B-1 (mononitrate)) pantoprazole 40 mg tablet,delayed 40 mg PO BID PRN Acid Reflux 06/17/23 09/08/23 Unknown History release (Protonix) chlordiazepoxide HCl 10 mg capsule 10 mg PO DIRECTED #19 caps 06/24/23 09/08/23 Unknown Rx escitalopram oxalate 20 mg tablet 30 mg (1.5 x 20 mg) PO DAILY #45 06/24/23 09/08/23 Unknown Rx (Lexapro) tabs thiamine mononitrate (vit B1) 100 100 mg PO DAILY #30 tabs 06/24/23 09/08/23 Unknown Rx mg tablet (Vitamin B-1 (mononitrate)) Allergies Allergy/AdvReac Type Severity Reaction Status Date / Time No Known Allergies Allergy Verified 06/17/23 13:16 PFSH NPU 2 PFSH: Medical History (Updated 09/09/23 @ 14:39 by Gamal Andrade MD) Anxiety Persistent complex bereavement disorder Colonoscopy planned 2020 Hyperlipidemia Sleep disturbance Surgical History H/O lateral meniscus repair of right knee History of removal of ovarian cyst Family History Mother Stroke Father Heart disease Myocardial infarction Sister Breast cancer Social History Smoking and tobacco/nicotine status: current every day tobacco/nicotine user cigarettes Packs smoked per day: 0.5 Years cigarettes smoked: 20 Alcohol intake: current Alcohol intake frequency: 0-2 Drinks per Day Alcohol type: beer and hard liquor Substance/Drug Use: never Lives independently: Yes Marital status: / Mental Status Exam 2 MSE Comments: This is a slender older white female in hospital gown with limited grooming and eye contact. No abnormal movements except for significant psychomotor retardation. With some resistance to exam in moderate distress. Speech was decreased rate and volume. Mood described as anxious, affect congruent. Thought process appeared mostly organized. Thought content: Patient denied suicidal or homicidal ideation but concerns for lethalty exists,, there were no delusions reported or noted, she denied any auditory or visual hallucinations. Attention and concentration were limited and memory appeared reliable but none were formally tested. She is alert and oriented x person and place. Insight, judgment and impulse control appeared limited. Vitals/I&O/Wt Last Vital Signs Temp 97.7 F 09/09/23 11:41 Pulse 67 09/09/23 11:41 Resp 17 09/09/23 11:41 BP 129/79 09/09/23 11:41 Pulse Ox 95 09/09/23 11:41 O2 Del Method Room Air 09/09/23 11:41 09/09/23 09/09/23 09/09/23 06:59 14:59 22:59 Intake Total 685.833 / 2994.3436 120 / 120 Output Total 350 / 350 Balance 335.833 / 2644.3436 120 / 120 Weight last 48 hrs Weight 38.612 kg Weight 41.362 kg Weight 34.927 kg Data NPU 09/10/23 06:07 09/10/23 06:07 A&P Assessment and plan (1) Anxiety: (2) Bereavement: (3) Alcohol use disorder, severe, dependence: (4) Alcohol withdrawal syndrome: (5) Persistent complex bereavement disorder: (6) Depression: Plan This is a 62-year-old white female seen in the consult in February and June with a recent loss of her and significant anxiety currently on Lexapro with discontinuing of drinking pa concern about long-term use of the Xanax who returns with the same concerns, continued weight loss, poor psychosocial functioning. 1. Continue current medication. Except: 2. Initiate remeron 15 mg po qhs and seroquel 25 mg po bid 3. Continue xanax prn. 4. Patient may benefit from being transferred to the neuropsychiatric unit once she is medically stable. 5. Will continue to follow. Attestations NPU 2 Medical Necessity Statement*: N/A. See primary team note for medical necessity. Coding Level of Care Code Acute Code for g Fwd Diagnoses Anxiety F41.9 Bereavement Z63.4 Alcohol use disorder, severe, dependence F10.20 Alcohol withdrawal syndrome F10.939 Persistent complex bereavement disorder F43.81 Depression F32.A
[2023-09-09 15:08] LABS: Blood Urea Nitrogen 8 mg/dL (8-23); Calcium 7.5 mg/dL (8.5-10.5); Carbon Dioxide 25 mmol/L (22-29); Chloride 101 mmol/L (98-107); Glomerular Filtration Rate 160.7 mL/min (90-130); Glucose 116 mg/dL (65-115); Osmolality Calculated 281 mOsm/kg (285-295); Sodium 136 mmol/L (136-145)
[2023-09-09 15:10] LABS: Anion Gap 14.5 (5-19); Potassium 4.5 mmol/L (3.5-5.1)
--- NOTE | 2023-09-09 15:51 | PC.NURSE ---
Addendum entered by JANNIE Porter 09/10/23 21:24: patient continues to refuse SCD's and heparin injection, patient educated. aware. Original Note: Patient refused SCDs and heparin injection. Nurse explained reason needed and patient did not want to wear nor have the injection. Educated patient and patient still refused.
[2023-09-09 16:30] LABS: Glucose Point of Care 107 mg/dL (70-110)
[2023-09-09] MEDS: atorvastatin 40 mg Tablet PO (18:02)
[2023-09-09] MEDS: sucralfate 1 gm/10 mL Oral Liq UDC PO ×2 (18:02→21:12)
[2023-09-09] MEDS: quetiapine 25 mg Tablet PO (18:03)
[2023-09-09 21:01] LABS: Glucose Point of Care 105 mg/dL (70-110)
[2023-09-09] MEDS: mirtazapine 15 mg Tablet PO (21:12)
[2023-09-10] VITALS (7 sets, daily range): BP systolic 112–133; BP diastolic 73–86; PULSE 63–82; RESP 16–18; TEMP 36.3–36.9; O2SAT 94–97; BMI 16.6
[2023-09-10] MEDS: sucralfate 1 gm/10 mL Oral Liq UDC PO ×4 (05:51→21:16)
[2023-09-10 06:25] LABS: Glucose Point of Care 93 mg/dL (70-110)
[2023-09-10 06:28] LABS: Basophils % 0.6 %; Eosinophils # 0.1 10^3/uL (0.0-0.8); Eosinophils % 1.3 %; Hematocrit 33.1 % (36-47); Lymphocytes # 2.5 10^3/uL (0.8-4.8); Lymphocytes % 39.4 %; Mean Corpuscular HGB Conc 34.4 g/dL (30-55); Mean Corpuscular Hemoglobin 36.7 pg (27-33); Mean Corpuscular Volume 106.4 fl (85-98); Mean Platelet Volume 11.2 fL (7.4-10.4); Monocytes # 0.6 10^3/uL (0.2-0.9); Monocytes % 9.1 %; Neutrophils # 3.15 10^3/uL (1.8-7.7); Neutrophils % 49.4 %; Nucleated Red Blood Cells % 0 %; Platelet Count 254 10^3/cmm (157-399); Red Blood Count 3.11 10^6/uL (3.85-5.65); White Blood Count 6.37 10^3/uL (3.29-11.43)
[2023-09-10 06:48] LABS: Alanine Aminotransferase 15 U/L (0-33); Albumin Level 2.7 g/dL (3.5-5.2); Alkaline Phosphatase 100 U/L (35-105); Anion Gap 13.1 (5-19); Aspartate Amino Transferase 23 U/L (0-32); Blood Urea Nitrogen 6 mg/dL (8-23); Carbon Dioxide 25 mmol/L (22-29); Chloride 104 mmol/L (98-107); Globulin 1.9 g/dL (1.3-4.6); Glomerular Filtration Rate 124.2 mL/min (90-130); Glucose 80 mg/dL (65-115); Osmolality Calculated 283 mOsm/kg (285-295); Potassium 4.1 mmol/L (3.5-5.1); Sodium 138 mmol/L (136-145); Total Bilirubin 0.3 mg/dL (0.15-1.2); Total Protein 4.6 g/dL (6.6-8.7)
[2023-09-10] MEDS: ALPRAZolam 0.5 mg Tablet PO ×2 (09:07→22:40)
[2023-09-10] MEDS: pantoprazole DR 40 mg Tablet PO ×2 (09:07→17:25)
[2023-09-10] MEDS: thiamine 500 MG in sodium chloride 0.9% (100 ml) 100 ML 210 MG IV (09:07)
[2023-09-10] MEDS: folic acid 1 mg Tablet PO (09:07)
[2023-09-10] MEDS: quetiapine 25 mg Tablet PO ×2 (09:07→17:25)
[2023-09-10] MEDS: multivitamin therapeutic Tablet 1 TAB PO (09:07)
[2023-09-10] MEDS: dextrose 5% 1,000 ML 50 ML IV (09:08)
[2023-09-10 11:31] LABS: Glucose Point of Care 92 mg/dL (70-110)
--- NOTE | 2023-09-10 16:05 | P.PN_ITS ---
Subjective 2 Subjective: No acute events overnight. Today morning seen with daughter at bedside. Patient seems more jovial. As per the patient, daughter and nursing staff patient oral intake has decreased Vitals/I&O/Wt Last Vital Signs Temp 97.4 F L 09/10/23 12:00 Pulse 69 09/10/23 12:00 Resp 16 09/10/23 12:00 BP 117/79 09/10/23 12:00 Pulse Ox 97 09/10/23 12:00 O2 Del Method Room Air 09/10/23 12:00 09/10/23 09/10/23 09/10/23 06:59 14:59 22:59 Intake Total 240 / 720 1345 / 1345 Balance 240 / 720 1345 / 1345 Weight last 48 hrs Weight 38.584 kg Weight 38.612 kg Weight 41.362 kg Physical Exam 2 Narrative: General: No acute distress, AO x3, anxious, cachectic, chronically sick appearing, elderly flare frail-appearing lady HEENT: PERRLA, pupils bilaterally equal and reactive Chest: Normal vesicular breath sounds, no added sounds, equal good air entry bilaterally CVS: S1-S2 regular, no murmurs, no tachycardia, no gallops, no rubs Abdomen: Soft, nontender, no organomegaly, bowel sounds present Neuro: No focal deficits, no facial deformity, AO x3, power 5/5 in all limbs Data 09/10/23 06:07 09/10/23 06:07 A&P Assessment and plan (1) Adult failure to thrive: (2) Dysgeusia: (3) Abnormal weight loss: (4) High anion gap metabolic acidosis: (5) Hyponatremia: (6) Anxiety: (7) Depression: (8) Hypomagnesemia: (9) Ketosis: (10) Enterocolitis: (11) Hypokalemia: Plan Adult failure to thrive: Along with poor oral intake and appetite and abnormal weight loss of about 77 pounds in last 1 year. Patient states she is not able to eat anything because of bad taste in her mouth. States salty food tastes too salty and sugary food taste too sweet. Patient has a history of depression. States she is feeling extremely anxious since stopping her Xanax and Ambien. States has not consumed alcohol over last 1 month. Currently presented with high anion gap metabolic acidosis, hyponatremia, hypokalemia and hypomagnesemia. Hypokalemia resolved. Today she does have hyperkalemia. Kayexalate 1 dose along with sodium bicarb 100 mEq one-time. Repeat BMP in evening. Continue with D5 NS at 50 cc/h. Appreciate magnesium and phosphorus levels. Phosphorus level still low. Will repeat in AM. High anion gap metabolic acidosis seems to be resolving. For poor oral intake because of dysgeusia: Patient does have history of significant depression and anxiety in the past. Check thiamine, zinc level. B12 level normal, TSH low normal, no type 2 diabetes mellitus Check MRI brain to rule out stroke. Start on IV thiamine 500 mg IV daily for 5 days. Discussed in detail with psychiatric team. Plan to switch Lexapro to Remeron 15 mg nightly and add Seroquel 25 mg twice daily for anxiety. Xanax 0.5 twice daily as needed for anxiety as well. Discussed in detail with patient's outpatient physician Dr. Scott. As per him she does have tendencies to see antianxiety medications. CT abdomen pelvis done in the ER. Shows GE junction thickening and non specific thickening of small bowel, ascending colon and rectosigmoid. Discussed in detail with patient's outpatient physician. She had endoscopy within the last 2 months which showed ulcerative gastritis with negative biopsies with colonoscopy within last 1 year showing tubular adenoma with advised to repeat in 5 years. C. difficile negative, bacterial and parasite panel awaited. Dietitian consult for calorie intake. Continue with regular diet with Ensure. Watch for refeeding syndrome. Plan for the day: Electrolytes stable. Appreciate results of any studies done yesterday. Follow-up thiamine and zinc level results. C. difficile negative. Other stool studies including enteric bacterial parasite panel awaited. Continue with regular diet. Continue with Seroquel twice daily along with Remeron nightly. Patient will need to follow-up with behavioral health clinic as an outpatient. Appreciate neurology recommendations. Patient is declining transfer to Neuropsych Unit for now. Continue with IV thiamine CODE STATUS: Discussed with the patient. Daughter would be the DPOA. She does not want any kind of resuscitation including chest compressions or ventilator support. DNR/DNI. Protonix will be sufficient for DVT prophylaxis Heparin 5000 every 12 hourly for DVT prophylaxis Attestations 2 Medical Necessity Statement*: Requires further hospitalization for management of adult failure to thrive, multiple electrode abnormalities, significant weight loss due to poor oral intake while patient undergoes calorie intake count, unintentional significant weight loss Diagnoses Adult failure to thrive R62.7 Dysgeusia R43.2 Abnormal weight loss R63.4 High anion gap metabolic acidosis E87.29 Hyponatremia E87.1 Anxiety F41.9 Depression F32.A Hypomagnesemia E83.42 Ketosis E88.89 Enterocolitis K52.9 Hypokalemia E87.6
[2023-09-10 16:59] LABS: Glucose Point of Care 111 mg/dL (70-110)
[2023-09-10] MEDS: atorvastatin 40 mg Tablet PO (17:25)
--- NOTE | 2023-09-10 19:24 | P.NPUPN_ITS ---
Subjective NPU 2 Subjective: Patient presented today reporting that she was doing better. She is reporting that she ate a larger amount of her food but she could not explain why she is able to do it here and has not been doing it at home. Continue to discuss concerns about her having intentional behavior that she is not willing to acknowledge. Discussed the critical need for her to be in therapy. Outpatient doctor called and had significant concerns about her covering up issues that are present. She denied any side effects to the medications. Mental Status Exam 2 MSE Comments: This is a slender older white female in hospital gown with limited grooming and eye contact. No abnormal movements except for significant psychomotor retardation. With some resistance to exam in moderate distress. Speech was decreased rate and volume. Mood described as anxious, affect congruent. Thought process appeared mostly organized. Thought content: Patient denied suicidal or homicidal ideation but concerns for lethalty exists,, there were no delusions reported or noted, she denied any auditory or visual hallucinations. Attention and concentration were limited and memory appeared reliable but none were formally tested. She is alert and oriented x person and place. Insight, judgment and impulse control appeared limited. Vitals/I&O/Wt Last Vital Signs Temp 98.0 F 09/10/23 16:00 Pulse 68 09/10/23 16:00 Resp 18 09/10/23 16:00 BP 132/84 09/10/23 16:00 Pulse Ox 96 09/10/23 16:00 O2 Del Method Room Air 09/10/23 16:00 09/10/23 09/10/23 09/10/23 06:59 14:59 22:59 Intake Total 240 / 720 1345 / 1345 240 / 1585 Balance 240 / 720 1345 / 1345 240 / 1585 Weight last 48 hrs Weight 39.094 kg Weight 38.584 kg Weight 38.612 kg Data NPU 09/11/23 05:04 09/11/23 05:04 A&P Assessment and plan (1) Anxiety: (2) Bereavement: (3) Alcohol use disorder, severe, dependence: (4) Alcohol withdrawal syndrome: (5) Persistent complex bereavement disorder: (6) Depression: Plan This is a 62-year-old white female seen in the consult in February and June with a recent loss of her and significant anxiety currently on Lexapro with discontinuing of drinking pa concern about long-term use of the Xanax who returns with the same concerns, continued weight loss, poor psychosocial functioning. 1. Continue current medication. Except: 2. Initiate remeron 15 mg po qhs and seroquel 25 mg po bid 3. Continue xanax prn. 4. Patient may benefit from being transferred to the neuropsychiatric unit once she is medically stable. Patient might also benefit from some controlled environment to embrace refeeding if there is not dramatic improvement. 5. Will continue to follow. Attestations NPU 2 Medical Necessity Statement*: N/A. See primary team note for medical necessity. Coding Level of Care Code Acute Code for Chg Fwd Diagnoses Anxiety F41.9 Bereavement Z63.4 Alcohol use disorder, severe, dependence F10.20 Alcohol withdrawal syndrome F10.939 Persistent complex bereavement disorder F43.81 Depression F32.A
[2023-09-10 20:28] LABS: Glucose Point of Care 177 mg/dL (70-110)
[2023-09-10] MEDS: trazodone 50 mg Tablet PO (21:16)
[2023-09-10] MEDS: mirtazapine 15 mg Tablet PO (21:16)
[2023-09-11 04:00] VITALS: BP 122/81; PULSE 70; RESP 16; TEMP 36.4; O2SAT 98
[2023-09-11 04:10] VITALS: BMI 17.0
[2023-09-11] MEDS: dextrose 5% 1,000 ML 50 ML IV (04:44)
[2023-09-11] MEDS: sucralfate 1 gm/10 mL Oral Liq UDC PO (06:03)
[2023-09-11 06:13] LABS: Basophils # 0.1 10^3/uL (0.0-0.1); Eosinophils # 0.1 10^3/uL (0.0-0.8); Eosinophils % 1.4 %; Lymphocytes # 2.3 10^3/uL (0.8-4.8); Lymphocytes % 45.9 %; Mean Corpuscular Hemoglobin 36.1 pg (27-33); Mean Corpuscular Volume 109.3 fl (85-98); Monocytes # 0.5 10^3/uL (0.2-0.9); Monocytes % 8.9 %; Neutrophils # 2.14 10^3/uL (1.8-7.7); Neutrophils % 42.4 %; Nucleated Red Blood Cells % 0.4 %; Platelet Count 258 10^3/cmm (157-399); Red Blood Count 3.02 10^6/uL (3.85-5.65); Red Cell Distribution Width 14.2 % (12.1-15.1); White Blood Count 5.05 10^3/uL (3.29-11.43)
[2023-09-11 06:22] LABS: Glucose Point of Care 175 mg/dL (70-110)
[2023-09-11 06:34] LABS: Alanine Aminotransferase 18 U/L (0-33); Albumin Level 2.8 g/dL (3.5-5.2); Alkaline Phosphatase 120 U/L (35-105); Anion Gap 15.8 (5-19); Aspartate Amino Transferase 24 U/L (0-32); Blood Urea Nitrogen 4 mg/dL (8-23); Calcium 8.1 mg/dL (8.5-10.5); Carbon Dioxide 25 mmol/L (22-29); Chloride 105 mmol/L (98-107); Globulin 1.8 g/dL (1.3-4.6); Glomerular Filtration Rate 84.2 mL/min (90-130); Glucose 117 mg/dL (65-115); Osmolality Calculated 292 mOsm/kg (285-295); Potassium 3.8 mmol/L (3.5-5.1); Sodium 142 mmol/L (136-145); Total Bilirubin 0.2 mg/dL (0.15-1.2); Total Protein 4.6 g/dL (6.6-8.7)
[2023-09-11 07:04] VITALS: BP 116/73; PULSE 65; RESP 17; TEMP 36.6; O2SAT 96
[2023-09-11] MEDS: thiamine 500 MG in sodium chloride 0.9% (100 ml) 100 ML 210 MG IV (08:42)
[2023-09-11] MEDS: pantoprazole DR 40 mg Tablet PO (08:43)
[2023-09-11] MEDS: folic acid 1 mg Tablet PO (08:43)
[2023-09-11] MEDS: quetiapine 25 mg Tablet PO (08:43)
[2023-09-11] MEDS: multivitamin therapeutic Tablet 1 TAB PO (08:43)
--- NOTE | 2023-09-11 09:38 | PC.NUTR ---
Consult for calorie count received. On Friday 09/08, Pt ate only 50% of 1 meal that day which amounted to 152 kcals or 11% of Pt's estimated calorie needs. On 09/09, Pt ate only 25% of one meal for that day which amounted to 210 kcals or 15% of her estimated calorie needs. For those 2 days Pt at 11-15% of her estimated calorie needs and 21-37% of her estimated protein needs.
[2023-09-11 11:28] VITALS: BP 121/82; PULSE 86; RESP 17; O2SAT 97
[2023-09-11 11:31] LABS: Glucose Point of Care 176 mg/dL (70-110)
--- NOTE | 2023-09-11 11:37 | P.DS_ITS ---
Discharge Providers Date of Admission: 09/08/23 18:04 Date of Discharge: September 11, 2023 Attending Provider at Admission: Gamal Andrade MD Attending Provider at Discharge: Gamal Andrade MD Primary Care Provider: Davey Scott MD Diagnoses at Discharge Discharge Diagnosis (1) Anxiety: Status: Acute (2) Bereavement: Status: Resolved (3) Alcohol withdrawal syndrome: Status: Resolved (4) Persistent complex bereavement disorder: Status: Inactive (5) Depression: Status: Acute (6) Abnormal weight loss: Status: Acute (7) Adult failure to thrive: Status: Acute (8) Hyponatremia: Status: Acute (9) Enterocolitis: Status: Acute (10) Hypokalemia: Status: Acute (11) High anion gap metabolic acidosis: Status: Acute (12) Hypomagnesemia: Status: Acute (13) Ketosis: Status: Acute (14) Dysgeusia: Status: Acute Reason for Visit Reason for Visit: Weakness Hospital Course Hospital Course Alicia Morse is a 62 year old female with past medical history of alcoholism, depression who was last admitted to Neuropsych Unit on 07/07 was brought into the ER today because of decreased appetite and weight loss which has been ongoing for last 1 year. patient's had over a year ago and since then she has lost up to 77 pounds. She needed an inpatient admission in June 2023 for severe depression at which time she was started on Lexapro. She was discharged home where she typically lives with her brother who helps take care of her. Her daughter reports patient was doing well for approximately 3 to 4 weeks after discharge, however since then has started to clinically deteriorate again. In contrast to prior, patient now expresses an interest in eating, daughter reports that she watches several cooking channels on her phone and expresses interest in eating a variety of foods such as steak et, funnel cakes etc., however when this is brought to her she takes a bite and starts to gag right after. She has also been having vomiting and diarrhea shortly after eating. About 2 weeks ago she had an episode of what appears to be syncope where she passed out and needed to be caught by her daughter. Her skin has been easily bruised, tears easily. She continues to lose weight and now weighs 41 kg with a BMI of 17. CT of the chest abdomen and pelvis today shows nonspecific thickening of the GE junction. Patient reportedly had an endoscopy with her primary care physician earlier this year, report requested from Emir Guzman. Additional note is made of ascending colon and rectosigmoid thickening reflecting possible enterocolitis. Per family she has had a colonoscopy within the past year, no abnormalities were detected as far as they are aware. No complaints of abdominal pain. Has had recurrent diarrhea made worse after eating. 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 Patient was admitted to the hospital further evaluation and management of multiple electrolyte abnormalities, adult failure to thrive and dehydration. On further discussion with the patient it seems oral intake has been limited because of poor oral taste with concerns for dysgeusia. Multiple etiologies were considered. Stroke was ruled out. It seems patient symptoms are most likely in setting of anxiety, depression along with vitamin deficiency. During hospitalization her electrolyte abnormality improved with repletion. She was started on IV thiamine repletion as well. After discussion with psychiatry her home medication of Lexapro was discontinued and she was started on Remeron and Seroquel 25 mg twice daily. Psychiatry also recommended patient to be transferred to Neuropsych Unit after medical improvement though patient and her family declined. Her oral intake continues to improve. During hospitalization she was also followed up with dietitian. She has been discharged in hemodynamically stable condition on new psychiatric medications with advised to follow-up with behavioral health clinic as an outpatient. She is advised to continue increasing her oral intake along with protein shakes. Discharge Data Studies Completed and Pending Completed Studies During Hospitalization Category Date Time Status CT angio chest w abd pel w con Stat Cat Scan 09/08/23 13:54 Completed MR head wo con* [id number] Routine MRI 09/09/23 11:20 Completed Pending at discharge Category Date Time Status Enteric Bacteria [Salmonella / Shigella / Campy] Lab 09/08/23 11:30 Received Routine Enteric Parasite [OVA and Parasites, Conc and PE] Lab 09/09/23 11:30 Received Routine Vitamin B1 (Thiamine),Blood Routine Lab 09/09/23 16:38 Received Zinc Level, Serum or Plasma Routine Lab 09/09/23 16:38 Received Radiology Impressions Chest/Abdomen/Pelvis CT 09/08/23 13:54 IMPRESSION: 1. No evidence of PE or acute aortic abnormality. IMPRESSION: 1. Findings most suggestive of an infectious or inflammatory enterocolitis. Consider follow-up colonoscopy to exclude an underlying mucosal lesion given clinical history. 2. Mild wall thickening of the gastric cardia near the GE junction, nonspecific. If symptomatic, consider GI evaluation and endoscopy to exclude an underlying mucosal lesion of clinical history. Head MRI 09/09/23 11:20 IMPRESSION: 1. No acute infarct. Normal diffusion imaging. No hemorrhage. 2. Moderate small vessel ischemic type changes in a periventricular distribution and predominantly within the subcortical frontal white matter. 3. Mild cerebral atrophy. 4. Mild bilateral hippocampal atrophy. Laboratory Results WBC 5.05 10^3/uL (3.29-11.43) 09/11/23 05:04 RBC 3.02 10^6/uL (3.85-5.65) L 09/11/23 05:04 Hgb 10.90 g/dL (11.27-16.99) L 09/11/23 05:04 Hct 33.0 % (36-47) L 09/11/23 05:04 MCV 109.3 fl (85-98) H 09/11/23 05:04 MCH 36.1 pg (27-33) H 09/11/23 05:04 MCHC 33.0 g/dL (30-55) 09/11/23 05:04 RDW 14.2 % (12.1-15.1) 09/11/23 05:04 Plt Count 258 10^3/cmm (157-399) 09/11/23 05:04 MPV 12.0 fL (7.4-10.4) H 09/11/23 05:04 Neut % (Auto) 42.4 % 09/11/23 05:04 Lymph % (Auto) 45.9 % 09/11/23 05:04 [place] % (Auto) 8.9 % 09/11/23 05:04 Eos % (Auto) 1.4 % 09/11/23 05:04 Baso % (Auto) 1.0 % 09/11/23 05:04 Neut # (Auto) 2.14 10^3/uL (1.8-7.7) 09/11/23 05:04 Lymph # (Auto) 2.3 10^3/uL (0.8-4.8) 09/11/23 05:04 [place] # (Auto) 0.5 10^3/uL (0.2-0.9) 09/11/23 05:04 Eos # (Auto) 0.1 10^3/uL (0.0-0.8) 09/11/23 05:04 Baso # (Auto) 0.1 10^3/uL (0.0-0.1) 09/11/23 05:04 Nucleated RBC % (auto) 0.4 % 09/11/23 05:04 Nucleated RBCs # 0.0 /100WBC 09/11/23 05:04 PT 11.60 SECONDS (12.1-14.9) L 09/08/23 13:45 INR 0.83 (0.8-1.2) 09/08/23 13:45 Specimen Type Arterial 09/08/23 14:49 Sample Site Brachial, left 09/08/23 14:49 ABG pH 7.44 (7.35-7.45) 09/08/23 14:49 ABG pCO2 31.4 mmHg (35-45) L 09/08/23 14:49 ABG pO2 90.4 mmHg (80.0-100.0) 09/08/23 14:49 ABG PO2/FiO2 Ratio 452 09/08/23 14:49 ABG HCO3 21.5 mmol/L (22-26) L 09/08/23 14:49 ABG Base Excess -2.0 mmol/L (-2.0-2.0) 09/08/23 14:49 [place] Test Pos 09/08/23 14:49 Hematocrit 31.4 % (37-47) L 09/08/23 14:49 O2 Delivery Device Room air 09/08/23 14:49 FiO2 21.0 % 09/08/23 14:49 Nuclear Power Reactor Operator ID Cak 09/08/23 14:49 Sodium 142 mmol/L (136-145) 09/11/23 05:04 Potassium 3.8 mmol/L (3.5-5.1) 09/11/23 05:04 Chloride 105 mmol/L (98-107) 09/11/23 05:04 Carbon Dioxide 25 mmol/L (22-29) 09/11/23 05:04 Anion Gap 15.8 (5-19) 09/11/23 05:04 BUN 4 mg/dL (8-23) L 09/11/23 05:04 Creatinine 0.7 mg/dL (0.5-0.9) 09/11/23 05:04 GFR Calculation 84.2 mL/min (90-130) L 09/11/23 05:04 Glucose 117 mg/dL (65-115) H 09/11/23 05:04 POC Glucose 176 mg/dL (70-110) H 09/11/23 11:26 Estimat Average Glucose 65 09/09/23 04:50 Hemoglobin A1c 3.9 % (4.0-6.0) L 09/09/23 04:50 Calculated Osmolality 292 mOsm/kg (285-295) 09/11/23 05:04 Lactic Acid 1.2 mmol/L (0.5-2.2) 09/08/23 13:45 Calcium 8.1 mg/dL (8.5-10.5) L 09/11/23 05:04 Phosphorus 2.3 mg/dL (2.5-4.5) L 09/09/23 04:50 Magnesium 2.0 mg/dL (1.7-2.3) 09/09/23 04:50 Iron 57 ug/dL (37-145) 09/08/23 17:15 TIBC 147 mcg/dl 09/08/23 17:15 % Saturation 38.7 % (20-50) 09/08/23 17:15 Unsat Iron Binding 90 ug/dL (112-347) L 09/08/23 17:15 Total Bilirubin 0.2 mg/dL (0.15-1.2) 09/11/23 05:04 AST 24 U/L (0-32) 09/11/23 05:04 ALT 18 U/L (0-33) 09/11/23 05:04 Alkaline Phosphatase 120 U/L (35-105) H 09/11/23 05:04 Total Protein 4.6 g/dL (6.6-8.7) L 09/11/23 05:04 Albumin 2.8 g/dL (3.5-5.2) L 09/11/23 05:04 Globulin 1.8 g/dL (1.3-4.6) 09/11/23 05:04 Triglycerides 207 mg/dL (0-150) H 09/09/23 04:50 Cholesterol 270 mg/dL (0-200) H 09/09/23 04:50 LDL Cholesterol, Calc 182 mg/dL (50-129) H 09/09/23 04:50 HDL Cholesterol 47 mg/dL (60-100) L 09/09/23 04:50 LDL/HDL Ratio 3.87 RATIO (0.00-3.22) H 09/09/23 04:50 Cholesterol/HDL Ratio 5.74 mg/dL (0.0-4.40) H 09/09/23 04:50 Lipase 22 U/L (13-60) 09/08/23 13:45 Vitamin B12 917 pg/mL (232-1245) 09/08/23 17:15 Folate 4.7 ng/mL (4.8-37.3) L 09/09/23 04:50 Procalcitonin 0.14 ng/mL (0-0.5) 09/09/23 04:50 TSH 1.72 uIU/mL (0.27-4.20) 09/08/23 13:45 Urine Color Yellow (Yellow) 09/08/23 20:30 Urine Appearance Slightly cloudy (CLEAR) 09/08/23 20:30 Urine pH 6 (5-7) 09/08/23 20:30 Ur Specific [place] 1.010 (1.005-1.030) 09/08/23 20:30 Urine Protein Neg (Negative) 09/08/23 20:30 Urine Glucose (UA) Norm (Normal) 09/08/23 20:30 Urine Ketones 1+ (Negative) H 09/08/23 20:30 Urine Blood Neg (Negative) 09/08/23 20:30 Urine Nitrate Negative (Negative) 09/08/23 20:30 Urine Bilirubin 1+ (Negative) H 09/08/23 20:30 Urine Urobilinogen 1 mg/dL (Negative) H 09/08/23 20:30 Ur Leukocyte Esterase 2+ (Negative) H 09/08/23 20:30 Urine RBC 5-10 /hpf (0-2) H 09/08/23 20:30 Urine WBC 15-25 /hpf (0-5) H 09/08/23 20:30 Ur Squamous Epith Cells 10-15 /hpf (0-5) H 09/08/23 20:30 Amorphous Sediment Not Reportable 09/08/23 20:30 Urine Bacteria 1+ /hpf (NONE) H 09/08/23 20:30 Urine Mucus 1+ /hpf 09/08/23 20:30 Urine Opiates Screen Negative ng/mL (Negative) 09/08/23 20:30 Ur Barbiturates Screen Negative ng/mL (Negative) 09/08/23 20:30 Ur Phencyclidine Scrn Negative ng/mL (Negative) 09/08/23 20:30 Ur Amphetamines Screen Negative ng/mL (Negative) 09/08/23 20:30 U Benzodiazepines Scrn Negative ng/mL (Negative) 09/08/23 20:30 Urine Cocaine Screen Negative ng/mL (Negative) 09/08/23 20:30 U Marijuana (THC) Screen Negative ng/mL (Negative) 09/08/23 20:30 Ethyl Alcohol < 10 mg/dL (0-10) 09/08/23 13:45 Serum Ketones Positive (Negative) H 09/08/23 13:45 C. difficile (PCR) Negative (Negative) 09/09/23 11:30 Hepatitis A IgM Ab Non-reactive (Nonreactive) 09/08/23 17:15 Hep Bs Antigen Non-reactive (Nonreactive) 09/08/23 17:15 Hep Bs Antibody < 3.5 (11.5-1000) L 09/08/23 17:15 Hep B Core Total Ab Non-reactive (Nonreactive) 09/08/23 17:15 Hepatitis C Antibody Non-reactive (Nonreactive) 09/08/23 17:15 HIV 1&2 Ab & HIV 1 Ag Non-reactive (Non-Reactiv) 09/08/23 17:15 HIV 1&2 Antibody Non-reactive (Non-Reactiv) 09/08/23 17:15 Vitals Last Vital Signs Temp 97.9 F 09/11/23 07:04 Pulse 86 09/11/23 11:28 Resp 17 09/11/23 11:28 BP 121/82 09/11/23 11:28 Pulse Ox 97 09/11/23 11:28 O2 Del Method Room Air 09/11/23 11:28 Discharge Plan Discharge Patient Disposition: Home Condition: Stable Prescriptions: New quetiapine 25 mg Tablet 25 mg PO BID Qty: 60 0RF sucralfate 100 mg/mL Suspension 1 g PO AC&BEDTIME 30 Days Qty: 1000 0RF mirtazapine 15 mg Tablet 15 mg PO BEDTIME Qty: 30 0RF Continued rosuvastatin 10 mg tablet 10 mg PO QPM Qty: 30 0RF Vitamin B-1 (mononitrate) 100 mg Tablet 100 mg PO DAILY Qty: 30 1RF folic acid 1 mg Tablet 1 mg PO DAILY Qty: 30 0RF multivitamin with folic acid [Thera] 400 mcg Tablet 1 tab PO DAILY Qty: 30 0RF Changed Protonix 40 mg tablet,delayed release (DR/EC) 40 mg PO BID Qty: 60 0RF Discontinued thiamine mononitrate (vit B1) [Vitamin B-1 (mononitrate)] 100 mg Tablet 100 mg PO DAILY Qty: 30 0RF chlordiazepoxide HCl 10 mg capsule 10 mg PO DIRECTED Qty: 19 0RF Rx Instructions: Take one tablet twice a day for 7 days then decrease to one tablet once a day for 5 days then discontinue escitalopram oxalate [Lexapro] 20 mg tablet 30 mg PO DAILY Qty: 45 1RF Discharge Orders: Discharge Order (Routine); Ordered 09/11/23 Ordered By: Gamal Andrade Referrals: Davey Scott MD [Primary Care Provider] - 09/14/23 8:45 am Discharge Diet: Advance as tolerated and Regular Discharge Activity: Resume usual activity and Increase activity as tolerated Patient Instructions: Sucralfate (By mouth), Mirtazapine (By mouth), Quetiapine (By mouth), Failure to Thrive in Older Adults (GEN), Opioid Safety Activity Restrictions/Additional Instructions: [facility] [employer] ran your insurance, and your insurance will cover home health visits at 80%. You will have a 20% co-payment per visit, which would be approximately $40-50/visit, this could vary depending on therapy ordered. Please continue to take protein shakes with each meal as possible. Please try to increase your oral intake as possible. Lexapro has been stopped. Instead take mirtazapine 15 mg nightly and Seroquel 2 5 mg twice daily. Discharge Attestations Time Spent in Discharge Care*: greater than 30 min Specific Discharge Activities: educating patient, educating and/or supporting family/caregiver, discussing with pcp/other providers, discussing with pillowcase maker/social workers/dc planners, documenting/other paperwork and evaluating patient/reviewing data Status at Discharge: Cognitive status at discharge: cognitively intact , Behavioral status at discharge: cooperative , Functional status at discharge: independent ambulation , Overall status at discharge: patient has a new baseline Quality Metrics Clinical Quality Measures [ No reported AMI, CVA or VTE this stay] Coding Level of Care Code Acute Code for Chg Fwd Diagnoses Anxiety F41.9 Bereavement Z63.4 Alcohol withdrawal syndrome F10.939 Persistent complex bereavement disorder F43.81 Depression F32.A Abnormal weight loss R63.4 Adult failure to thrive R62.7 Hyponatremia E87.1 Enterocolitis K52.9 Hypokalemia E87.6 High anion gap metabolic acidosis E87.29 Hypomagnesemia E83.42 Ketosis E88.89 Dysgeusia R43.2
[2023-09-11 13:24] VITALS: BP 121/82; PULSE 86; RESP 17; O2SAT 97
[2023-09-15 12:09] LABS: Zinc Level, Serum or Plasma 49 mcg/dL (60-130)
[2023-09-18 17:29] LABS: Vitamin B1 (Thiamine),Blood 29 nmol/L (78-185)
== END 2023-09-11 13:35 | disposition home or self-care (01) ==
LOC: ER 16:21 → MEDSURG 09-09 20:15
PROVIDERS: Student in an Organized Health Care Education/Training Program; Admitting Provider Student in an Organized Health Care Education/Training Program; Emergency Provider Emergency Medicine; PCP Family Medicine; Visit Provider Student in an Organized Health Care Education/Training Program
DX: R62.7 Adult failure to thrive (principal); E87.6 Hypokalemia; E87.29 Other acidosis; E87.1 Hypo-osmolality and hyponatremia; R63.4 Abnormal weight loss; F32.A Depression, unspecified; E83.42 Hypomagnesemia; E88.89 Other specified metabolic disorders; K52.9 Noninfective gastroenteritis and colitis, unspecified; E78.5 Hyperlipidemia, unspecified; F41.9 Anxiety disorder, unspecified; F17.210 Nicotine dependence, cigarettes, uncomplicated; F10.939 Alcohol use, unspecified with withdrawal, unspecified; F43.81 Prolonged grief disorder; E86.0 Dehydration; Z63.4 Disappearance and death of family member; Z66 Do not resuscitate
CPT/HCPCS: 36415; 36416; 36600; 70551; 71275; 74177; 80048; 80053; 80061; 80306; 80307; 81001; 82009; 82607; 82746; 82803; 82962; 83036; 83540; 83550; 83605; 83690; 83735; 84100; 84145; 84425; 84443; 84630; 85025; 85610; 86705; 86706; 86709; 86803; 87045; 87177; 87209; 87340; 87427; 87449; 87493; 87806; 94664; 96365; 96372; 97110; 97161; 99285; G0378; J1644; J2060; J3411; J3475; J7030; J7070; Q9967

== ENCOUNTER 2024-08-17 09:07 | Inpatient (IN) | payer MEDICARE, OTHER, SELFPAY ==
[2024-08-17] VITALS (16 sets, daily range): BP systolic 76–131; BP diastolic 55–88; PULSE 82–122; RESP 15–18; TEMP 36.4–36.5; O2SAT 93–100; BMI 17.4
--- NOTE | 2024-08-17 09:32 | ED_ITS ---
HPI - General Adult 2 General: Chief complaint: General Medical Stated complaint: no appetite (14xday) Time Seen by Provider: 08/17/24 09:27 History of Present Illness: 63-year-old female presents to the [facility] ency room stating she has no appetite she has not been eating the last several days. Patient admits to just basically avoiding eating. She suddenly lost her about a year and 1/2 to 2 years ago has had extreme difficulty adjusting to that since. For a time she was drinking quite heavily had some admissions to [facility] had episodes of alcohol withdrawal. She tells me now she has not been drinking at all recently. She had struggled with the eating and developed some anorexia nervosa as part of her bereavement disorder. She had gotten down to 77 pounds last fall increased her weight back up to 108 but has begun losing weight again. She is not having difficulty with swallowing specifically. She is just avoiding eating. Associated symptoms: Deny chest pain, dyspnea or rash Related Data Previous Rx's ?Medication ?Instructions ?Recorded mirtazapine 15 mg tablet 15 mg PO BEDTIME #30 tabs pantoprazole 40 mg tablet,delayed 40 mg PO BID Acid Re flux #60 tabs 09/11/23 release (Protonix) quetiapine 25 mg tablet 25 mg PO BID #60 tabs Allergies Allergy/AdvReac Type Severity Reaction Status Date / Time No Known Allergies Allergy Verified 11/10/23 14:17 Review of Systems 2 Const: Denies: fever(s) or chills Card: Denies: chest pain Resp: Denies: dyspnea GI: Denies: abdominal pain : Denies: dysuria, urinary frequency or urinary urgency Musc: Denies: neck pain or back pain Skin/Breast: Denies: rash PFSH ED 2 PFSH: Medical History Psychiatric care Alcohol use disorder, severe, dependence Anxiety Persistent complex bereavement disorder Colonoscopy planned 2020 Hyperlipidemia Sleep disturbance Surgical History H/O lateral meniscus repair of right knee History of removal of ovarian cyst Family History Mother Stroke Father Heart disease Myocardial infarction Sister Breast cancer Social History Smoking and tobacco/nicotine status: current every day tobacco/nicotine user cigarettes Packs smoked per day: 0.5 Years cigarettes smoked: 20 Alcohol intake: current Alcohol intake frequency: 0-2 Drinks per Day Alcohol type: beer and hard liquor Substance/Drug Use: never Lives independently: Yes Marital status: / Physical Exam 2 Const: GENERAL APPEARANCE: cooperative NUTRITIONAL APPEARANCE: cachectic ORIENTATION/CONSCIOUSNESS: Yes awake HENMT: COMMON NORMALS: normocephalic, atraumatic and hearing grossly normal bilaterally HEAD & SCALP: normocephalic and atraumatic Resp: COMMON NORMALS: normal respiratory effort, No retractions, No use of accessory muscles and clear to auscultation bilaterally AUSCULTATION: clear to auscultation bilaterally Cardio: COMMON NORMALS: regular rate, regular rhythm and No murmurs present (Cardio) RATE: regular rate RHYTHM: regular rhythm GI: COMMON NORMALS: Soft to palpation and No hepatosplenomegaly present A USCULTATION: Yes normoactive bowel sounds PALPATION: Yes Soft to palpation, No Tenderness to palpation present (GI), No Guarding due to palpation present (GI) and Yes No hepatosplenomegaly present Extremity: COMMON NORMALS: normal to inspection, capillary refill normal, no clubbing, cyanosis or edema, no calf tenderness and no pedal edema Skin: COMMON NORMALS: no rashes or lesions noted GENERAL SKIN EXAM: no rashes or lesions noted Course 2 Vital Signs: Vital signs: Vital Signs Temperature 97.5 F L 08/17/24 09:14 Pulse Rate 95 08/17/24 11:30 Respiratory Rate 18 08/17/24 09:14 Blood Pressure 97/57 08/17/24 11:30 Pulse Oximetry 99 08/17/24 11:30 Oxygen Delivery Me thod Room Air 08/17/24 11:30 [facility] - General Adult Medical Decision Making Patient presents emergency room she is essentially avoiding eating by her admission. Initially states she had stopped drinking but in talking to her further did get her treatment she still is occasionally drinking just she still reports that she has not drinking recently family contradicts this. Patient has hypokalemia hypomagnesemia hyponatremia mild transaminitis all consistent with continued alcohol intake. She has a metabolic acidosis which thinks a combination of her alcohol use and starvation. IV fluids electrolyte replacement. Medical Records I reviewed the patient's medical records. Lab Data I reviewed the patient's lab results. 08/17/24 09:42 08/17/24 09:42 Radiology Impressions Abdomen/Pelvis CT 08/17/24 10:20 IMPRESSION: 1. Prominent mucosal enhancement with fluid distended small bowel suspicious for small bowel enteritis. 2. Evidence of gastritis and duodenitis. 3. Marked hepatomegaly fatty infiltration. Small RIGHT hepatic cyst. 4. No other acute findings. Laboratory Results WBC 6.90 10^3/uL (3.29-11.43) 08/17/24 09:42 RBC 2.91 10^6/uL (3.85-5.65) L 08/17/24 09:42 Hgb 11.60 g/dL (11.27-16.99) 08/17/24 09:42 Hct 33.0 % (36-47) L 08/17/24 09:42 MCV 113.4 fl (85-98) H 08/17/24 09:42 MCH 39.9 pg (27-33) H 08/17/24 09:42 MCHC 35.2 g/dL (30-55) 08/17/24 09:42 RDW 12.6 % (12.1-15.1) 08/17/24 09:42 Plt Count 154 10^3/cmm (157-399) L 08/17/24 09:42 MPV 12.3 fL (7.4-10.4) H 08/17/24 09:42 Neut % (Auto) 58.2 % 08/17/24 09:42 Lymph % (Auto) 27.2 % 08/17/24 09:42 [place] % (Auto) 12.8 % 08/17/24 09:42 Eos % (Auto) 0.6 % 08/17/24 09:42 Baso % (Auto) 0.6 % 08/17/24 09:42 Neut # (Auto) 4.02 10^3/uL (1.8-7.7) 08/17/24 09:42 Lymph # (Auto) 1.9 10^3/uL (0.8-4.8) 08/17/24 09:42 [place] # (Auto) 0.9 10^3/uL (0.2-0.9) 08/17/24 09:42 Eos # (Auto) 0.0 10^3/uL (0.0-0.8) 08/17/24 09:42 Baso # (Auto) 0.0 10^3/uL (0.0-0.1) 08/17/24 09:42 Nucleated RBC % (auto) 0 % 08/17/24 09:42 Nucleated RBCs # 0.0 /100WBC 08/17/24 09:42 Sodium 133 mmol/L (136-145) L 08/17/24 09:42 Potassium 2.4 mmol/L (3.5-5.1) L* 08/17/24 09:42 Chloride 86 mmol/L (98-107) L 08/17/24 09:42 Carbon Dioxide 24 mmol/L (22-29) 08/17/24 09:42 Anion Gap 25.4 (5-19) H 08/17/24 09:42 BUN 17 mg/dL (8-23) 08/17/24 09:42 Creatinine 0.9 mg/dL (0.5-0.9) 08/17/24 09:42 GFR Calculation 62.8 mL/min (90-130) L 08/17/24 09:42 Glucose 133 mg/dL (65-115) H 08/17/24 09:42 Calculated Osmolality 279 mOsm/kg (285-295) L 08/17/24 09:42 Calcium 9.4 mg/dL (8.5-10.5) 08/17/24 09:42 Magnesium 1.5 mg/dL (1.7-2.3) L 08/17/24 09:42 Total Bilirubin 1.0 mg/dL (0.15-1.2) 08/17/24 09:42 AST 52 U/L (0-32) H 08/17/24 09:42 ALT 28 U/L (0-33) 08/17/24 09:42 Alkaline Phosphatase 196 U/L (35-105) H 08/17/24 09:42 Ammonia 23 umol/L (11-51) 08/17/24 09:42 Troponin T Baseline 15 ng/L (0-10) H 08/17/24 09:42 Troponin T 120 Minute 13.59 ng/L (0-10) H 08/17/24 11:56 Delta Troponin T -1.41 ABS# (0-10) L 08/17/24 11:56 Total Protein 6.8 g/dL (6.6-8.7) 08/17/24 09:42 Albumin 4.0 g/dL (3.5-5.2) 08/17/24 09:42 Globulin 2.8 g/dL (1.3-4.6) 08/17/24 09:42 Lipase 39 U/L (13-60) 08/17/24 09:42 TSH 2.79 uIU/mL (0.27-4.20) 08/17/24 09:42 Urine Color Yellow (Yellow) 08/17/24 11:44 Urine Appearance Clear (CLEAR) 08/17/24 11:44 Urine pH 6.5 (5-7) 08/17/24 11:44 Ur Specific [place] 1.003 (1.005-1.030) L 08/17/24 11:44 Urine Protein Negative (Negative) 08/17/24 11:44 Urine Glucose (UA) Negative (Normal) 08/17/24 11:44 Urine Ketones Negative (Negative) 08/17/24 11:44 Urine Blood Negative (Negative) 08/17/24 11:44 Urine Nitrate Negative (Negative) 08/17/24 11:44 Urine Bilirubin Negative (Negative) 08/17/24 11:44 Urine Urobilinogen 1.0 mg/dL (Negative) 08/17/24 11:44 Ur Leukocyte Esterase Negative (Negative) 08/17/24 11:44 Urine RBC 0-2 /hpf (0-2) 08/17/24 11:44 Urine WBC 0-5 /hpf (0-5) 08/17/24 11:44 Ur Squamous Epith Cells 0-5 /hpf (0-5) 08/17/24 11:44 Amorphous Sediment Not Reportable 08/17/24 11:44 Urine Bacteria None seen /hpf (NONE) 08/17/24 11:44 Hyaline Casts 0-4 /lpf H 08/17/24 11:44 Ethyl Alcohol < 10 mg/dL (0-10) 08/17/24 09:42 All radiology interpretation(s) finalized by discharge EKG Data EKG 1: Computer generated interpretation: Abdomen/Pelvis CT 08/17/24 10:20 IMPRESSION: 1. Prominent mucosal enhancement with fluid distended small bowel suspicious for small bowel enteritis. 2. Evidence of gastritis and duodenitis. 3. Marked hepatomegaly fatty infiltration. Small RIGHT hepatic cyst. 4. No other acute findings. EKG 08/18/2019 08259. Sinus tachycardia rate of 114 CT interval 130. No acute ST changes noted. There are some nonspecific changes that appear to be rate related. No acute ST elevation. Discharge Plan Discharge Patient Disposition: Placed in Observation Admit Provider: Asaf Brady Clinical Impression: Hypokalemia, Adult failure to thrive, Hyponatremia, High anion gap metabolic acidosis, Hypomagnesemia, Thrombocytopenia, Anorexia nervosa, Grief reaction with prolonged bereavement Coding Level of Care Code ED Vocational Technical Education Teacher for Hitesh Yuan
[2024-08-17 09:52] LABS: Basophils % 0.6 %; Eosinophils % 0.6 %; Lymphocytes # 1.9 10^3/uL (0.8-4.8); Lymphocytes % 27.2 %; Mean Corpuscular HGB Conc 35.2 g/dL (30-55); Mean Corpuscular Hemoglobin 39.9 pg (27-33); Mean Corpuscular Volume 113.4 fl (85-98); Mean Platelet Volume 12.3 fL (7.4-10.4); Monocytes # 0.9 10^3/uL (0.2-0.9); Monocytes % 12.8 %; Neutrophils # 4.02 10^3/uL (1.8-7.7); Neutrophils % 58.2 %; Nucleated Red Blood Cells % 0 %; Platelet Count 154 10^3/cmm (157-399); Red Blood Count 2.91 10^6/uL (3.85-5.65); Red Cell Distribution Width 12.6 % (12.1-15.1)
[2024-08-17] MEDS: sodium chloride 0.9% 500 ML 999 ML IV (10:03)
[2024-08-17 10:06] LABS: Ammonia 23 umol/L (11-51)
[2024-08-17 10:10] LABS: Alanine Aminotransferase 28 U/L (0-33); Alkaline Phosphatase 196 U/L (35-105); Anion Gap 25.4 (5-19); Aspartate Amino Transferase 52 U/L (0-32); Blood Urea Nitrogen 17 mg/dL (8-23); Calcium 9.4 mg/dL (8.5-10.5); Carbon Dioxide 24 mmol/L (22-29); Chloride 86 mmol/L (98-107); Creatinine Clr Calc Pharmacy 41.8515; Globulin 2.8 g/dL (1.3-4.6); Glomerular Filtration Rate 62.8 mL/min (90-130); Glucose 133 mg/dL (65-115); Lipase 39 U/L (13-60); Magnesium 1.5 mg/dL (1.7-2.3); Osmolality Calculated 279 mOsm/kg (285-295); Sodium 133 mmol/L (136-145); Total Protein 6.8 g/dL (6.6-8.7)
[2024-08-17 10:12] LABS: Alcohol Level < 10 mg/dL (0-10); Potassium 2.4 mmol/L (3.5-5.1)
--- NOTE | 2024-08-17 10:20 | ECG_ITS ---
[facility] Test Date: 2024-08-17 Pat Name: Alicia Morse Department: Room: Gender: Female Cilnical Scientist: : [id number] Requested By: Gumaro Stratton Order Number: [id number] Reading MD: GREGORIO GA Measurements Intervals [place] Rate: 114 P: 81 SC: 130 QRS: 68 QRSD: 81 T: 77 QT: 328 QTc: 452 Interpretive Statements SINUS TACHYCARDIA POSSIBLE LEFT ATRIAL ENLARGEMENT [-0.1mV P-WAVE IN V1/V2] LOW QRS VOLTAGE IN PRECORDIAL LEADS [QRS DEFLECTION < 1.0 mV IN CHEST LEADS] MODERATE ST DEPRESSION [0.05+ mV ST DEPRESSION] No previous ECG available for comparison Electronically Signed On 08-17-2024 22:51:31 CDT by GREGORIO GA [email or web address] [id number]
--- NOTE | 2024-08-17 10:20 | CT_ITS ---
WS: [id number] CT ABDOMEN PELVIS TECHNIQUE: Contrast-enhanced CT of the abdomen and pelvis with coronal and sagittal reformatted images. CLINICAL INFORMATION: abd pain COMPARISON: 2022 DLP: 293.[address] scans at [facility] use at least one of these dose optimization techniques: automated exposure control; mA and/or kV adjustment per patient size (includes targeted exams where dose is matched to clinical indication); or iterative reconstruction. FINDINGS: Hepatomegaly. Fatty liver. RIGHT hepatic cyst measuring 11 mm. Portal vein and splenic vein are patent. Lung bases are well aerated. Adrenal glands are normal. Normal renal parenchymal enhancement. No hydronephrosis. Gastric rugal thickening with enhancement extending into the duodenum compatible with gastroduodenitis. Normal pancreatic parenchymal enhancement. Normal spleen. Normal caliber abdominal aorta. Celiac and SMA are patent. Dense aortic calcification. Slightly hydropic gallbladder. Normal sigmoid colon. Prominent small bowel mucosal enhancement with mild fluid distention suspicious for small bowel enteritis. No free fluid in the abdomen or pelvis. CT/CT abdomen pelvis w con* [id number] IMPRESSION: 1. Prominent mucosal enhancement with fluid distended small bowel suspicious f or small bowel enteritis. 2. Evidence of gastritis and duodenitis. 3. Marked hepatomegaly fatty infiltration. Small RIGHT hepatic cyst. 4. No other acute findings.
[2024-08-17 10:26] LABS: Slide Review Slide Review Perform
[2024-08-17] MEDS: ondansetron 2 mg/ML SDV 2 mL 4 MG IVP (10:35)
[2024-08-17] MEDS: lidocaine 1% 5 ML in potassium chloride premix 100 ML 26.25 ML IV (10:46)
[2024-08-17] MEDS: potassium chloride oral liq 20 mEq/15 mL UDC 40 MEQ PO (10:46)
[2024-08-17 10:55] LABS: Troponin(5th) Baseline 15 ng/L (0-10)
[2024-08-17] MEDS: sodium chloride 0.9% 1,000 ML 125 ML IV ×2 (11:06→22:36)
[2024-08-17 11:07] LABS: Thyroid Stimulating Hormone 2.79 uIU/mL (0.27-4.20)
[2024-08-17 11:51] LABS: Bilirubin Urine Negative (Negative); Blood Urine Negative (Negative); Glucose Urine UA Negative (Normal); Ketones Urine Negative (Negative); Leukocyte Esterase Urine Negative (Negative); Nitrate Urine Negative (Negative); Protein Urine Negative (Negative); Specific Gravity, Urine 1.003 (1.005-1.030); Urine Appearance Clear (CLEAR); Urine Color Yellow (Yellow); pH Urine 6.5 (5-7)
[2024-08-17 11:56] LABS: Add Urine Microscopic? YES; Bacteria Urine None Seen /hpf; Hyaline Casts Urine 0-4 /lpf; RBC Urine 0-2 /hpf (0-2); Squamous Epithelial Cell Urine 0-5 /hpf (0-5); WBC Urine 0-5 /hpf (0-5)
[2024-08-17 12:07] LABS: Add Urine Culture? No
[2024-08-17] MEDS: iohexol 350 mg/mL 500 mL Btl (per mL) IV (12:10)
[2024-08-17 12:18] LABS: Troponin 5 2HR 13.59 ng/L (0-10)
[2024-08-17 12:24] LABS: Troponin 5 2HR Delta -1.41 ABS# (0-10)
[2024-08-17] MEDS: magnesium sulfate premix 1 GM/100 ML PIGGYBACK IV ×2 (13:06→13:43)
--- NOTE | 2024-08-17 13:15 | ECG_ITS ---
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
[2024-08-17] MEDS: LORazepam 1 MG/0.5 ML injection 2 MG IVP (13:42)
--- NOTE | 2024-08-17 13:57 | PM.HP ---
Providers/Chief Complaint Primary Care Provider: Davey Scott MD Chief Complaint: no appetite (14xday) History of Present Illness lAicia Morse is a 63 year old female with a history of poor appetite for the past couple of years, which has worsened over the past week, presents with decreased oral intake and new abdominal pain. The patient reports difficulty eating and drinking, with some water intake but minimal food. The abdominal pain is located centrally and is present today. The patient denies diarrhea, dark or bloody stools, vomiting, fever, chills, shortness of breath, cough, or headache. There is no recent medication change. The patient has a history of significant grief and difficulty adjusting since the passing of their . Recent labs revealed significant electrolyte deficiencies (low potassium, low magnesium, low sodium), dehydration, and low platelets. Imaging showed some inflammation in the intestinal tract. There is concern for possible liver injury, fibrosis, or cirrhosis, and an ultrasound of the liver is being considered. The patient denies a history of diabetes, heart disease, stents, stroke, lung disease, COPD, asthma, or sleep apnea. The patient lives with their brother, who helps at home, and uses a cane but does not use it regularly. The patient has not experienced withdrawal symptoms from alcohol and has no history of liver disease. The patient reports feeling weak. No recent tick bites or outdoor exposure. The patient requests something to help with sleep due to difficulty resting in the hospital. Review of Systems Const: Reports: change in appetite (Poor oral intake) and change in weight; Denies: fever(s), chills, body aches or malaise ENMT: Denies: throat pain Card: Denies: chest pain, edema, pre-syncope or dyspnea on exertion Resp: Denies: dyspnea, productive cough, change in phlegm color or hemoptysis GI: Denies: abdominal pain, nausea, vomiting, diarrhea, constipation, hematochezia or melena : Denies: flank pain, urinary frequency or hematuria Musc: Denies: back pain, joint swelling or joint redness Skin/Breast: Denies: rash or new lesions Neuro: Reports: frequent falls; Denies: headache(s) or confusion Medications/Allergies Home Medications ?Medication ?Instructions ?Recorded ?Confirmed ?Last Taken ?Type mirtazapine 15 mg tablet 15 mg PO BEDTIME #30 tabs 09/11/23 08/17/24 08/16/24 20:00 Rx pantoprazole 40 mg tablet,delayed 40 mg PO BID Acid Reflux #60 tabs 09/11/23 08/17/24 08/17/24 Rx release (Protonix) quetiapine 25 mg tablet 25 mg PO BID #60 tabs 09/11/23 08/17/24 08/17/24 Rx Allergies Allergy/AdvReac Type Severity Reaction Status Date / Time No Known Allergies Allergy Verified 11/10/23 14:17 PFSH Acute PFSH: Medical History Psychiatric care Alcohol use disorder, severe, dependence Anxiety Persistent complex bereavement disorder Colonoscopy planned 2020 Hyperlipidemia Sleep disturbance Surgical History H/O lateral meniscus repair of right knee History of removal of ovarian cyst Family History Mother Stroke Father Heart disease Myocardial infarction Sister Breast cancer Social History Smoking and tobacco/nicotine status: current every day tobacco/nicotine user cigarettes Packs smoked per day: 0.5 Years cigarettes smoked: 20 Alcohol intake: current Alcohol intake frequency: 0-2 Drinks per Day Alcohol type: beer and hard liquor Substance/Drug Use: never Lives independently: Yes Marital status: / Vitals/I&O/Wt Last Vital Signs Temp 97.5 F L 08/17/24 09:14 Pulse 95 08/17/24 11:30 Resp 18 08/17/24 09:14 BP 97/57 08/17/24 11:30 Pulse Ox 99 08/17/24 11:30 O2 Del Method Room Air 08/17/24 11:30 08/16/24 08/17/24 08/17/24 22:59 06:59 14:59 Intake Total 100 / 100 Balance 100 / 100 Weight last 48 hrs Weight 38.102 kg Physical Exam Narrative: Accompanied by daughter and son-in-law Const: COMMON NORMALS: patient oriented x3 and alert GENERAL APPEARANCE: cooperative and frail appearing NUTRITIONAL APPEARANCE: underweight ORIENTATION/CONSCIOUSNESS: Yes awake HENMT: COMMON NORMALS: oropharynx normal Neck/C-Spine: COMMON NORMALS: no JVD Resp: COMMON NORMALS: normal respiratory effort and clear to auscultation bilaterally AUSCULTATION: clear to auscultation bilaterally Cardio: COMMON NORMALS: no JVD, regular rhythm, S1 normal heart sound present, S2 normal heart sound present and No murmurs present (Cardio) RHYTHM: regular rhythm HEART SOUNDS: S1 normal heart sound present and S2 normal heart sound present GI: COMMON NORMALS: Normal to inspection, nondistended, normoactive bowel sounds present, Soft to palpation and non-tender PALPATION: Yes Soft to palpation Extremity: COMMON NORMALS: no joint enlargement and no pedal edema NARRATIVE EXTREMITY EXAM: Sarcopenia Neuro: COMMON NORMALS: patient oriented x3 and moves all extremities SENSORIUM/ORIENTATION: Yes alert Skin: COMMON NORMALS: no rashes or lesions noted GENERAL SKIN EXAM: no rashes or lesions noted OTHER: Skin tear on lower third of the anterior right olea, but 2 cm in length, old crusted blood, healing. No surrounding erythema. No drainage. Data 08/17/24 09:42 08/17/24 09:42 A&P Assessment and plan (1) Adult failure to thrive: The patient has had poor oral intake and dehydration, with decreased appetite for years and worsening over the past week. This is likely multifactorial, related to grief, possible underlying medical issues, and recent abdominal symptoms. CT abdomen pelvis reviewed, noted prominent mucosal enhancement with distended small bowel suspicious of enteritis. Evidence of gastritis and duodenitis. Marked hepatomegaly with fatty infiltration and small right hepatic cyst. Reviewed vitals, CBC, CMP, magnesium, lipase, requested TSH. Reviewed ammonia. Reviewed UA, EtOH level, EKG on my interpretation without Q waves, pending official read. Reviewed ED provider note, discussed with the provider. - With gastritis and duodenitis will treat with twice daily PPI, sucralfate. Treat with Zosyn empirically for now for enteritis given symptoms and lack of oral intake. Monitor for diarrhea. Monitor for risk of cytopenia, C. difficile. Follow-up TSH. Replace electrolyte deficiency. Regular diet as tolerating, nutritional shakes with Ensure. Monitor for risk of refeeding syndrome. Psychiatry consultation pending with regards to depression with protracted grief response after passing away 2 years ago, including with alcohol use disorder. She reports has not drank for several weeks. - Continue to encourage oral intake as tolerated. - Monitor hydration status and reassess regularly. -Dietitian consult (2) Hyponatremia: Suspected hypovolemic hyponatremia, receiving IV hydration. Monitor for risk of fluid overload. Follow-up sodium. (3) Hypokalemia: Received potassium supplementation and magnesium as well. Follow-up chemistry and magnesium levels. (4) Hypomagnesemia: Received magnesium, follow-up magnesium levels. (5) Grief reaction with prolonged bereavement: Protracted bereavement with depression, pending psychiatry evaluation. In worse condition currently as anniversary of her 's passing is coming up. (6) Depression: Protracted bereavement with depression, pending psychiatry evaluation. Continue mirtazapine, quetiapine. (7) Enterocolitis: Without vomiting or diarrhea at this time. With mid abdominal pain. Monitor for development of additional symptoms. Zosyn empirically for now. Denies postprandial pain. Check lactic acid. Symptoms not suggestive of ischemic bowel. Abdomen soft, nontender palpation. Plan Moderate malnutrition, noted underweight, with significant sarcopenia. BMI 16.4. Weighing only 38 kg. Regular diet. Add Ensure drinks. Dietitian consult. Smoking addiction: Discussed with her cessation for 3 and half minutes. She states has been cutting down cut down to about half pack a day so far. Discussed with her nicotine replacement she is agreeable to patches, lozenges.. Insomnia: She request for help with sleep tonight, discussed with her regarding melatonin, requested. Alcohol use disorder: She has stopped drinking alcohol about 2 weeks ago. Thiamine, folic acid, multivitamin. PDMP PDMP Reviewed: Not Reviewed Attestations Medical Necessity Statement*: Place in observation for additional assessment management of failure to thrive, malnutrition with electrolyte disturbances, hypokalemia, hypomagnesemia, hyponatremia, dehydration, gastritis, enteritis LAD with depression, protracted grief, alcohol use disorder. and High MDM includes amount and/or complexity of data reviewed/ordered [ previous or external records, resulted lab(s)/test(s), ordered lab(s)/test(s) and other healthcare professional discussion] and described risk of complication, morbidity or mortality of management as documented Diagnoses Adult failure to thrive R62.7 Hyponatremia E87.1 Hypokalemia E87.6 Hypomagnesemia E83.42 Grief reaction with prolonged bereavement F43.29 Depression F32.A Enterocolitis K52.9
[2024-08-17 16:17] LABS: Troponin 5 6HR 15.05 ng/L (0-10); Troponin 5 6HR Delta 0.05 ng/L (0-12)
--- NOTE | 2024-08-17 16:39 | ECG_ITS ---
[facility] Test Date: 2024-08-17 Pat Name: Alicia Morse Department: Room: EDIP Gender: Female Steward/Stewardess Third: : 1960 Requested By: Gumaro Stratton Order Number: [id number] Reading MD: GREGORIO GA Measurements Intervals [place] Rate: 88 P: 76 [place]: 166 QRS: 74 QRSD: 55 T: 75 QT: 361 QTc: 437 Interpretive Statements SINUS RHYTHM SEPTAL MYOCARDIAL INFARCTION , OF INDETERMINATE AGE [40+ ms Q WAVE IN V1/V2] Compared to ECG 08/17/2024 13:15:23 No significant changes Electronically Signed On 08-17-2024 23:09:07 CDT by GREGORIO GA [email or web address]
--- NOTE | 2024-08-17 21:51 | PC.NURSE ---
THIS NURSE TOOK OVER ROOM FROM DAY-SHIFT NURSE. PER MAY, 2 BAGS OF MAGNESIUM 1G GIVEN IV WAS INFUSED @1343 AND @1413. THIS NURSE NOTICED @1920 THAT THERE WERE 2 BAGS OF MAGNESIUM THAT APPEARED FULL IN ROOM. THIS NURSE WAS NOT COMFORTABLE STARTING THOSE BAGS AT THAT TIME. CHARGE NURSE NOTIFIED, PT ADMITTED TO CSU - CSU NURSE NOTIFIED.
--- NOTE | 2024-08-17 22:00 | US_ITS ---
WS: [id number] RIGHT UPPER QUADRANT ULTRASOUND HISTORY: possible cirrhosis COMPARISON: 06/16/2013 Liver: 17.9 cm in length. Normal size liver and echogenicity. No bile duct dilatation or mass. Portal Vein: Normal hepatopetal flow with monophasic waveform. Gallbladder: Gallbladder is slightly distended and elongated but not hydropic. There is no wall tension. Large amount of sludge layering in the dependent portion of the gallbladder. There is very slight gallbladder wall thickening to 4 mm. No pericholecystic fluid. CBD: 0.9 cm Pancreas: Limited. No abnormality detected. Right kidney: 9.1 cm in length. Normal size and echogenicity. No hydronephrosis or mass. Aorta and IVC: Limited. No ascites. US/US liver [id number] IMPRESSION: 1. Mildly elongated gallbladder with a large amount of layering sludge. Mild w all thickening with no pericholecystic fluid. Sludge within the gallbladder may be due to prolonged fasting state. 2. Common bile duct is dilated to 0.9 cm. Consider evaluation by MRCP.
[2024-08-17] MEDS: piperacillin-tazobactam 3.375 GM in sodium chloride 0.9% (plus) 50 ML IV (22:37)
[2024-08-17] MEDS: quetiapine 25 mg Tablet PO (22:41)
[2024-08-17] MEDS: mirtazapine 15 mg Tablet PO (22:41)
[2024-08-17] MEDS: sucralfate 1 gm Tablet PO (22:41)
[2024-08-17] MEDS: thiamine 100 mg/mL 2mL SDV IM (22:41)
[2024-08-17] MEDS: pantoprazole DR 40 mg Tablet PO (22:41)
[2024-08-17] MEDS: folic acid 1 mg Tablet PO (22:41)
[2024-08-17] MEDS: LORazepam 2 mg Tablet PO (22:41)
[2024-08-17] MEDS: enoxaparin 30 mg/0.3 mL Syringe SUBCUT (22:41)
[2024-08-17] MEDS: MELATONIN 3 MG TABLET PO (22:41)
[2024-08-17] MEDS: thiamine 100 mg Tablet PO (22:41)
[2024-08-17] MEDS: multivitamin therapeutic Tablet 1 TAB PO (22:41)
[2024-08-17 23:14] LABS: Lactate (Lactic Acid level) 0.8 mmol/L (0.5-2.2)
[2024-08-17 23:24] LABS: Thyroid Stimulating Hormone 3.35 uIU/mL (0.27-4.20)
[2024-08-18] VITALS (7 sets, daily range): BP systolic 92–106; BP diastolic 63–75; PULSE 81–105; RESP 18–24; TEMP 36.4–36.7; O2SAT 97–100
[2024-08-18] MEDS: sodium chloride 0.9% 1,000 ML 125 ML IV (06:04)
[2024-08-18] MEDS: sucralfate 1 gm Tablet PO (06:06)
[2024-08-18] MEDS: piperacillin-tazobactam 3.375 GM in sodium chloride 0.9% (plus) 50 ML IV ×3 (06:06→20:45)
[2024-08-18 06:13] LABS: Basophils % 0.4 %; Eosinophils # 0.2 10^3/uL (0.0-0.8); Eosinophils % 2.9 %; Hematocrit 25.7 % (36-47); Lymphocytes # 1.4 10^3/uL (0.8-4.8); Lymphocytes % 26.6 %; Mean Corpuscular HGB Conc 34.6 g/dL (30-55); Mean Corpuscular Hemoglobin 40.5 pg (27-33); Mean Corpuscular Volume 116.8 fl (85-98); Mean Platelet Volume 12.3 fL (7.4-10.4); Monocytes # 0.7 10^3/uL (0.2-0.9); Monocytes % 14.3 %; Neutrophils # 2.82 10^3/uL (1.8-7.7); Neutrophils % 55.2 %; Nucleated Red Blood Cells % 0 %; Platelet Count 123 10^3/cmm (157-399); Red Cell Distribution Width 13.2 % (12.1-15.1); White Blood Count 5.11 10^3/uL (3.29-11.43)
[2024-08-18 06:30] LABS: Alanine Aminotransferase 19 U/L (0-33); Albumin Level 2.9 g/dL (3.5-5.2); Alkaline Phosphatase 134 U/L (35-105); Blood Urea Nitrogen 11 mg/dL (8-23); Calcium 7.6 mg/dL (8.5-10.5); Carbon Dioxide 22 mmol/L (22-29); Chloride 103 mmol/L (98-107); Creatinine Clr Calc Pharmacy 49.1309; Globulin 1.8 g/dL (1.3-4.6); Glucose 75 mg/dL (65-115); Magnesium 1.8 mg/dL (1.7-2.3); Osmolality Calculated 282 mOsm/kg (285-295); Phosphorus 2.8 mg/dL (2.5-4.5); Sodium 137 mmol/L (136-145); Total Bilirubin 0.6 mg/dL (0.15-1.2); Total Protein 4.7 g/dL (6.6-8.7)
[2024-08-18 06:34] LABS: Anion Gap 15.4 (5-19); Aspartate Amino Transferase 42 U/L (0-32); Potassium 3.4 mmol/L (3.5-5.1)
[2024-08-18 07:46] LABS: Creatine Phosphokinase 49 U/L (26-192)
[2024-08-18] MEDS: quetiapine 25 mg Tablet PO ×2 (09:15→18:23)
[2024-08-18] MEDS: potassium chloride ER 20 mEq Tablet 40 MEQ PO (09:15)
[2024-08-18] MEDS: pantoprazole DR 40 mg Tablet PO ×2 (09:16→18:23)
[2024-08-18] MEDS: thiamine 100 mg Tablet PO (09:16)
[2024-08-18] MEDS: folic acid 1 mg Tablet PO (09:16)
[2024-08-18] MEDS: multivitamin therapeutic Tablet 1 TAB PO (09:16)
[2024-08-18] MEDS: magnesium sulfate premix 2 GM/50 ML PIGGYBACK IV (09:17)
--- NOTE | 2024-08-18 15:22 | P.PN_ITS ---
Subjective 2 Subjective: She refused better today. She feels like she will try eating or at least have a protein shake. She was able to get some sleep. Vitals/I&O/Wt Last Vital Signs Temp 98.1 F 08/18/24 12:00 Pulse 96 08/18/24 12:00 Resp 24 H 08/18/24 12:00 BP 102/69 08/18/24 12:00 Pulse Ox 100 08/18/24 12:00 O2 Del Method Room Air 08/18/24 12:00 08/18/24 08/18/24 08/18/24 06:59 14:59 22:59 Intake Total 1100 / 2905 290 / 290 Balance 1100 / 2905 290 / 290 Weight last 48 hrs Weight 42.728 kg Weight 40.415 kg Weight 38.102 kg Physical Exam 2 Narrative: Accompanied by daughter and son-in-law on second visit Const: COMMON NORMALS: patient oriented x3 and alert GENERAL APPEARANCE: c ooperative and frail appearing NUTRITIONAL APPEARANCE: underweight O RIENTATION/CONSCIOUSNESS: Yes awake HENMT: COMMON NORMALS: oropharynx normal Neck/C-Spine: COMMON NORMALS: no JVD Resp: COMMON NORMALS: normal respiratory effort and clear to auscultation bilaterally AUSCULTATION: clear to auscultation bilaterally Cardio: COMMON NORMALS: no JVD, regular rhythm, S1 normal heart sound present, S2 normal heart sound present and No murmurs present (Cardio) RHYTHM: regular rhythm HEART SOUNDS: S1 normal heart sound present and S2 normal heart sound present GI: COMMON NORMALS: Normal to inspection, nondistended, normoactive bowel sounds present, Soft to palpation and non-tender PALPATION: Yes Soft to palpation Extremity: COMMON NORMALS: no joint enlargement and no pedal edema N ARRATIVE EXTREMITY EXAM: Sarcopenia Neuro: COMMON NORMALS: patient oriented x3 and moves all extremities S ENSORIUM/ORIENTATION: Yes alert Skin: COMMON NORMALS: no rashes or lesions noted GENERAL SKIN EXAM: no rashes or lesions noted OTHER: Skin tear on lower third of the anterior right olea, but 2 cm in length, old crusted blood, healing. No surrounding erythema. No drainage. Data 08/18/24 05:21 08/18/24 05:21 A&P Assessment and plan (1) Adult failure to thrive: Encouraged oral intake, protein shake. Reviewed vitals, CBC, CMP, TSH, CK. Noted not as severe but persistent hypokalemia, 3.4. Requested replacement. Hypomagnesemia 1.8, requested replacement. Recheck chemistries. Encourage oral intake. Continue treatment of gastritis, IV PPI with transition to oral at discharge. For now empirically on antibiotic with possible enteritis. Has been assessed by psychiatry yesterday and today. Recommendation for additional treatment of depression with ECT with transfer to facility with capability. Patient and family considering and would like to further discuss with psychiatry per history obtained from family on revisit. Discussed with psychiatrist, discussed with nursing, nurse case manager. - With gastritis and duodenitis will treat with twice daily PPI, sucralfate. Treat with Zosyn empirically for now for enteritis given symptoms and lack of oral intake. Monitor for diarrhea. Monitor for risk of cytopenia, C. difficile. Follow-up TSH. Replace electrolyte deficiency. Regular diet as tolerating, nutritional shakes with Ensure. Monitor for risk of refeeding syndrome. Psychiatry consultation pending with regards to depression with protracted grief response after passing away 2 years ago, including with alcohol use disorder. She reports has not drank for several weeks. - Continue to encourage oral intake as tolerated. - Monitor hydration status and reassess regularly. -Dietitian consult (2) Hyponatremia: Resolved. Improving dehydration. Decrease IV fluid to 30 mL/h, monitor for fluid overload. Reassess chemistry. (3) Hypokalemia: Milder, persistent hypokalemia, requested replacement. Replace magnesium. Recheck levels. (4) Hypomagnesemia: Received magnesium, follow-up magnesium levels. (5) Grief reaction with prolonged bereavement: Protracted bereavement with depression, pending psychiatry evaluation. In worse condition currently as anniversary of her 's passing is coming up. (6) Depression: Discussed with psychiatry, family, with regards to her recommendation for ECT. Pending additional discussion with family and psychiatry. Protracted bereavement with depression, pending psychiatry evaluation. Continue mirtazapine, quetiapine. (7) Enterocolitis: Without vomiting or diarrhea at this time. With mid abdominal pain. Monitor for development of additional symptoms. Zosyn empirically for now. Denies postprandial pain. Check lactic acid. Symptoms not suggestive of ischemic bowel. Abdomen soft, nontender palpation. Plan Moderate malnutrition, noted underweight, with significant sarcopenia. BMI 16.4. Weighing only 38 kg. Regular diet. Add Ensure drinks. Dietitian consult. Smoking addiction: Continue to encourage cessation. Nicotine replacement she is agreeable to patches, lozenges. Insomnia: She request for help with sleep tonight, discussed with her regarding melatonin, requested. Alcohol use disorder: She has stopped drinking alcohol about 2 weeks ago. Thiamine, folic acid, multivitamin. With noted thrombocytopenia, suspected secondary to bone marrow suppression, although upon presentation also with hyponatremia, mild transaminitis, requested liver ultrasound. Without sign of cirrhosis at this time, however, with noted gallbladder distention, sludge, though without tension, minimally thickened wall, without pericholecystic fluid, no abdominal tenderness on palpation. Afebrile, without leukocytosis, without sign of cholecystitis, however, with some CBD dilation 0.9 cm, would benefit from follow-up MRCP. PDMP PDMP Reviewed: Not Reviewed Attestations 2 Medical Necessity Statement*: Requiring admission over 2 midnights for assessment management of failure to thrive, lack of oral intake, protracted depression, electrolyte deficiency, malnutrition and dehydration. and High MDM includes amount and/or complexity of data reviewed/ordered [ resulted lab(s)/test(s), ordered lab(s)/test(s), independent historian and other healthcare professional discussion] and described risk of complication, morbidity or mortality of management as documented Diagnoses Adult failure to thrive R62.7 Hyponatremia E87.1 Hypokalemia E87.6 Hypomagnesemia E83.42 Grief reaction with prolonged bereavement F43.29 Depression F32.A Enterocolitis K52.9
[2024-08-18] MEDS: LORazepam 2 mg Tablet PO ×2 (16:27→20:45)
[2024-08-18] MEDS: nicotine 14 mg Patch 1 PATCH TRANSDERMA (16:27)
[2024-08-18] MEDS: sodium chloride 0.9% 1,000 ML 100 ML IV (16:28)
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
[2024-08-18] MEDS: enoxaparin 30 mg/0.3 mL Syringe SUBCUT (20:45)
[2024-08-18] MEDS: MELATONIN 3 MG TABLET PO (20:45)
[2024-08-18] MEDS: mirtazapine 15 mg Tablet PO (20:45)
[2024-08-19] VITALS (7 sets, daily range): BP systolic 99–127; BP diastolic 67–94; PULSE 80–113; RESP 16–26; TEMP 36.3–36.6; O2SAT 96–98
[2024-08-19 04:06] LABS: Basophils % 0.5 %; Eosinophils # 0.1 10^3/uL (0.0-0.8); Eosinophils % 3.5 %; Hematocrit 26.4 % (36-47); Lymphocytes # 1.2 10^3/uL (0.8-4.8); Lymphocytes % 29.8 %; Mean Corpuscular HGB Conc 34.1 g/dL (30-55); Mean Corpuscular Hemoglobin 40.9 pg (27-33); Mean Platelet Volume 12.2 fL (7.4-10.4); Monocytes # 0.7 10^3/uL (0.2-0.9); Monocytes % 16.7 %; Neutrophils # 1.93 10^3/uL (1.8-7.7); Neutrophils % 48.7 %; Nucleated Red Blood Cells % 0 %; Platelet Count 134 10^3/cmm (157-399); Red Cell Distribution Width 13.2 % (12.1-15.1); White Blood Count 3.96 10^3/uL (3.29-11.43)
[2024-08-19] MEDS: LORazepam 2 mg Tablet PO ×2 (04:27→12:37)
[2024-08-19 04:32] LABS: Alanine Aminotransferase 20 U/L (0-33); Albumin Level 2.9 g/dL (3.5-5.2); Alkaline Phosphatase 142 U/L (35-105); Anion Gap 13.7 (5-19); Aspartate Amino Transferase 36 U/L (0-32); Blood Urea Nitrogen 7 mg/dL (8-23); Calcium 8.1 mg/dL (8.5-10.5); Carbon Dioxide 22 mmol/L (22-29); Chloride 109 mmol/L (98-107); Creatinine Clr Calc Pharmacy 49.1309; Globulin 1.9 g/dL (1.3-4.6); Glucose 107 mg/dL (65-115); Magnesium 1.9 mg/dL (1.7-2.3); Osmolality Calculated 290 mOsm/kg (285-295); Phosphorus 2.6 mg/dL (2.5-4.5); Potassium 3.7 mmol/L (3.5-5.1); Sodium 141 mmol/L (136-145); Total Bilirubin 0.5 mg/dL (0.15-1.2); Total Protein 4.8 g/dL (6.6-8.7)
[2024-08-19] MEDS: piperacillin-tazobactam 3.375 GM in sodium chloride 0.9% (plus) 50 ML IV ×3 (05:47→21:29)
[2024-08-19] MEDS: magnesium sulfate premix 1 GM/100 ML PIGGYBACK IV (08:36)
[2024-08-19] MEDS: quetiapine 25 mg Tablet PO (08:37)
[2024-08-19] MEDS: pantoprazole DR 40 mg Tablet PO ×2 (08:37→17:53)
[2024-08-19] MEDS: potassium chloride ER 20 mEq Tablet PO (08:37)
[2024-08-19] MEDS: multivitamin therapeutic Tablet 1 TAB PO (08:37)
[2024-08-19] MEDS: thiamine 100 mg Tablet PO (08:37)
[2024-08-19] MEDS: folic acid 1 mg Tablet PO (08:38)
--- NOTE | 2024-08-19 10:18 | P.PN_ITS ---
Subjective 2 Subjective: She has been tolerating oral intake. Denies nausea or vomiting. No diarrhea. Not abdominal pain. No right upper quadrant pain or discomfort. Vitals/I&O/Wt Last Vital Signs Temp 97.5 F L 08/19/24 08:00 Pulse 107 H 08/19/24 08:00 Resp 16 08/19/24 08:00 BP 127/90 08/19/24 08:00 Pulse Ox 97 08/19/24 04:00 O2 Del Method Room Air 08/19/24 04:00 08/18/24 08/19/24 08/19/24 22:59 06:59 14:59 Intake Total 181 / 2105 50 / 2155 Balance [id number] 50 / 2155 Weight last 48 hrs Weight 43.454 kg Weight 42.728 kg Weight 40.415 kg Physical Exam 2 Narrative: Accompanied by daughter and son-in-law on second visit. Const: COMMON NORMALS: patient oriented x3 and alert GENERAL APPEARANCE: c ooperative and frail appearing NUTRITIONAL APPEARANCE: underweight O RIENTATION/CONSCIOUSNESS: Yes awake HENMT: COMMON NORMALS: oropharynx normal Neck/C-Spine: COMMON NORMALS: no JVD Resp: COMMON NORMALS: normal respiratory effort and clear to auscultation bilaterally AUSCULTATION: clear to auscultation bilaterally Cardio: COMMON NORMALS: no JVD, regular rhythm, S1 normal heart sound present, S2 normal heart sound present and No murmurs present (Cardio) RHYTHM: regular rhythm HEART SOUNDS: S1 normal heart sound present and S2 normal heart sound present GI: COMMON NORMALS: Normal to inspection, nondistended, normoactive bowel sounds present, Soft to palpation and non-tender PALPATION: Yes Soft to palpation Extremity: COMMON NORMALS: no joint enlargement and no pedal edema N ARRATIVE EXTREMITY EXAM: Sarcopenia Neuro: COMMON NORMALS: patient oriented x3 and moves all extremities S ENSORIUM/ORIENTATION: Yes alert Skin: COMMON NORMALS: no rashes or lesions noted GENERAL SKIN EXAM: no rashes or lesions noted OTHER: Skin tear on lower third of the anterior right olea, but 2 cm in length, old crusted blood, healing. No surrounding erythema. No drainage. Data 08/19/24 03:13 08/19/24 03:13 A&P Assessment and plan (1) Adult failure to thrive: She is so far been tolerating oral intake. Encouraged nutritional supplement intake. Continue PPI for gastritis. Empiric antibiotic for enteritis, disease appears to have been improving. Patient's daughter states that she is showing some cognitive impairment compared to her usual self and sending text messages making some statements which are not like her usual self. Reviewed vitals, CBC, CMP, magnesium, phosphorus. Discussed with nursing, skilled nursing case manager. Discussed with psychiatrist. Requested additional supplementation potassium magnesium. Patient and family are reluctant to consider ECT currently. Discussed consideration regarding recommendation and alternate options, including risk of lack of further improvement or slow improvement without change in therapy or with medications alone. Risk of further failure to thrive, health decline, possibly life-threatening. Discussed consideration of geriatric psychiatric facility versus return home. Pending revisit and additional discussion with psychiatry today as well. With concern of possibly progressing to alcohol withdrawal, CIWA scores have been requested, reviewed, up to 11, benzodiazepine per CIWA is requested. Monitor for risk of respiratory depression. Monitor telemetry with risk of arrhythmia. - With gastritis and duodenitis will treat with twice daily PPI, sucralfate. Treat with Zosyn empirically for now for enteritis given symptoms and lack of oral intake. Monitor for diarrhea. Monitor for risk of cytopenia, C. difficile. Reviewed TSH. Replace electrolyte deficiency. Regular diet as tolerating, nutritional shakes with Ensure. Monitor for risk of refeeding syndrome. Psychiatry consultation pending with regards to depression with protracted grief response after passing away 2 years ago, including with alcohol use disorder. She reports has not drank for several weeks. Per discussion with family concern is that she may had alcohol more recently. - Continue to encourage oral intake as tolerated. Monitor for risk of refeeding syndrome. Recheck chemistry, magnesium, phosphorus. - Monitor hydration status and reassess regularly. -Dietitian consult (2) Hyponatremia: Resolved. Improving dehydration. Decrease IV fluid to 30 mL/h, monitor for fluid overload. Reassess chemistry. (3) Hypokalemia: Milder, persistent hypokalemia, requested additional replacement. Replace magnesium as well. Recheck levels. (4) Hypomagnesemia: Received magnesium, follow-up magnesium levels. (5) Grief reaction with prolonged bereavement: Protracted bereavement with depression, pending psychiatry evaluation. In worse condition currently as anniversary of her 's passing is coming up. (6) Depression: Discussed with psychiatry, family, with regards to her recommendation for ECT. Pending additional discussion with family and psychiatry. Protracted bereavement with depression, pending psychiatry evaluation. Continue mirtazapine, quetiapine. (7) Enterocolitis: Without vomiting or diarrhea at this time. With mid abdominal pain. Monitor for development of additional symptoms. Zosyn empirically for now. Denies postprandial pain. Check lactic acid. Symptoms not suggestive of ischemic bowel. Abdomen soft, nontender palpation. (8) Abnormal gallbladder ultrasound: Discussed with patient and family findings with distended gallbladder, with sludge, mild wall thickening, without pericholecystic fluid. Yoder negative, no abdominal pain or tenderness. No nausea or vomiting, tolerating oral diet. May be distention secondary to lack of oral intake. She is has prescription at risk of sludge and stones secondary to poor oral intake and weight loss. At this time without evidence of acute cholecystitis, but discussed recommendation for additional imaging with MRCP. Plan Moderate malnutrition, noted underweight, with significant sarcopenia. BMI 16.4. Weighing only 38 kg. Regular diet. Add Ensure drinks. Dietitian consult. Smoking addiction: Continue to encourage cessation. Nicotine replacement she is agreeable to patches, lozenges. Insomnia: She request for help with sleep tonight, discussed with her regarding melatonin, requested. Alcohol use disorder: She has stopped drinking alcohol about 2 weeks ago per her report, although this is not corroborated. Thiamine, folic acid, multivitamin. With noted thrombocytopenia, suspected secondary to bone marrow suppression, although upon presentation also with hyponatremia, mild transaminitis, reviewed liver ultrasound. Without sign of cirrhosis at this time, however, with noted gallbladder distention, sludge, though without tension, minimally thickened wall, without pericholecystic fluid, no abdominal tenderness on palpation. Afebrile, without leukocytosis, without sign of cholecystitis, however, with some CBD dilation 0.9 cm, would benefit from follow-up MRCP. PDMP PDMP Reviewed: Not Reviewed Attestations 2 Medical Necessity Statement*: Continue admission for assessment management of possible alcohol withdrawal in a lady with failure to thrive, alcohol use disorder, depression, gastritis and enteritis. and High MDM includes amount and/or complexity of data reviewed/ordered [ resulted lab(s)/test(s), independent historian and other healthcare professional discussion] and described risk of complication, morbidity or mortality of management as documented Diagnoses Adult failure to thrive R62.7 Hyponatremia E87.1 Hypokalemia E87.6 Hypomagnesemia E83.42 Grief reaction with prolonged bereavement F43.29 Depression F32.A Enterocolitis K52.9 Abnormal gallbladder ultrasound R93.2
[2024-08-19] MEDS: sucralfate 1 gm Tablet PO ×3 (11:55→21:28)
--- NOTE | 2024-08-19 12:36 | PC.SOCIAL ---
IMM Updated Updated pt & daughter on IMM. No questions voiced. Provided pt a copy. Initialed, dated, & timed a copy & placed in chart.
[2024-08-19] MEDS: nicotine 14 mg Patch 1 PATCH TRANSDERMA (12:40)
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
[2024-08-19] MEDS: MELATONIN 3 MG TABLET PO (21:28)
[2024-08-19] MEDS: enoxaparin 30 mg/0.3 mL Syringe SUBCUT (21:28)
[2024-08-19] MEDS: quetiapine 25 mg Tablet 50 MG PO (21:28)
[2024-08-19] MEDS: mirtazapine 15 mg Tablet PO (21:28)
--- NOTE | 2024-08-19 23:44 | PC.NURSE ---
patient up to bathroom, IV site soiled in blood. nurse unwraps the coban, and replaces the veniguard,nurse then flushes IV with 10ml normal saline, site is cool to touch with no swelling noted. patient tolerated well, no complaints at this time
[2024-08-20] VITALS (9 sets, daily range): BP systolic 93–112; BP diastolic 58–73; PULSE 72–99; RESP 15–25; TEMP 36.3–36.9; O2SAT 95–99
[2024-08-20] MEDS: sucralfate 1 gm Tablet PO ×3 (05:58→17:49)
[2024-08-20] MEDS: piperacillin-tazobactam 3.375 GM in sodium chloride 0.9% (plus) 50 ML IV ×3 (05:58→22:46)
[2024-08-20 06:08] LABS: Basophils % 0.8 %; Eosinophils # 0.1 10^3/uL (0.0-0.8); Eosinophils % 3.7 %; Hematocrit 28.5 % (36-47); Lymphocytes # 1.3 10^3/uL (0.8-4.8); Lymphocytes % 35.6 %; Mean Corpuscular HGB Conc 32.6 g/dL (30-55); Mean Corpuscular Hemoglobin 40.1 pg (27-33); Mean Corpuscular Volume 122.8 fl (85-98); Monocytes # 0.7 10^3/uL (0.2-0.9); Monocytes % 18.4 %; Neutrophils # 1.54 10^3/uL (1.8-7.7); Nucleated Red Blood Cells % 0 %; Platelet Count 142 10^3/cmm (157-399); Red Blood Count 2.32 10^6/uL (3.85-5.65); Red Cell Distribution Width 13.7 % (12.1-15.1); White Blood Count 3.76 10^3/uL (3.29-11.43)
[2024-08-20 06:32] LABS: Alanine Aminotransferase 24 U/L (0-33); Albumin Level 2.9 g/dL (3.5-5.2); Alkaline Phosphatase 144 U/L (35-105); Anion Gap 13.1 (5-19); Aspartate Amino Transferase 43 U/L (0-32); Blood Urea Nitrogen 4 mg/dL (8-23); Calcium 8.6 mg/dL (8.5-10.5); Carbon Dioxide 24 mmol/L (22-29); Chloride 110 mmol/L (98-107); Creatinine Clr Calc Pharmacy 49.4523; Glucose 93 mg/dL (65-115); Magnesium 1.7 mg/dL (1.7-2.3); Osmolality Calculated 293 mOsm/kg (285-295); Phosphorus 2.8 mg/dL (2.5-4.5); Potassium 4.1 mmol/L (3.5-5.1); Sodium 143 mmol/L (136-145); Total Bilirubin 0.5 mg/dL (0.15-1.2); Total Protein 4.9 g/dL (6.6-8.7)
[2024-08-20] MEDS: thiamine 100 mg Tablet PO (08:32)
[2024-08-20] MEDS: pantoprazole DR 40 mg Tablet PO ×2 (08:32→17:49)
[2024-08-20] MEDS: multivitamin therapeutic Tablet 1 TAB PO (08:32)
[2024-08-20] MEDS: folic acid 1 mg Tablet PO (08:32)
[2024-08-20] MEDS: LORazepam 2 mg Tablet PO ×3 (08:33→21:00)
[2024-08-20] MEDS: nicotine 14 mg Patch 1 PATCH TRANSDERMA (08:33)
--- NOTE | 2024-08-20 13:09 | P.PN_ITS ---
Subjective 2 Subjective: No acute events overnight. Patient seen at the bedside and feels better today. She remains on [facility]IMT protocol. Vitals/I&O/Wt Last Vital Signs Temp 97.9 F 08/20/24 07:47 Pulse 93 08/20/24 07:47 Resp 16 08/20/24 07:47 BP 106/72 08/20/24 07:47 Pulse Ox 96 08/20/24 07:47 O2 Del Method Room Air 08/20/24 07:47 08/19/24 08/20/24 08/20/24 22:59 06:59 14:59 Intake Total 125 / 405 50 / 455 290 / 290 Balance 125 / 405 50 / 455 290 / 290 Weight last 48 hrs Weight 43.63 kg Weight 43.454 kg Physical Exam 2 Narrative: General -Awake, alert , no acute distress , chronically ill-appearing HEENT-normocephalic, atraumatic, neck is supple Lungs-clear to auscultation bilaterally, no wheezes or crackles CVS -S1-S2, regular rate and rhythm Abdomen -soft, nontender, normal bowel sounds Extremities-no pedal edema Neurology -no gross focal deficits Data 08/20/24 05:55 08/20/24 05:55 A&P Assessment and plan (1) Abnormal gallbladder ultrasound: (2) Major depressive disorder, recurrent severe without psychotic features: (3) Enterocolitis: (4) Grief reaction with prolonged bereavement: (5) Adult failure to thrive: Plan # Gastritis, duodenitis # Enteritis - Patient has some improvement in her symptoms, p.o. intake is improving - Continue PPI, sucralfate - Continue Zosyn - She will need GI evaluation for colonoscopy and endoscopy # Adult failure to thrive - Per reports, patient has been having reduced p.o. intake for some time now - Continue to encourage p.o. intake, nutritional supplements - PT OT evaluation - Further evaluation outpatient # Depression #Grief reaction with prolonged bereavement - Psychiatry consulted -ECT recommended, patient not open to this at this time. Further discussion with psychiatry - Continue meds recommended by psychiatry # Abnormal gallbladder # Common bile duct dilatation -No clinical signs of acute cholecystitis - MRCP recommended for further eval. alk phos, AST mildly elevated, bilirubin not elevated # Hypokalemia, hypomagnesemia - Continue to replace as appropriate # Alcohol use disorder - Patient on [facility] protocol for alcohol withdrawal - Continue thiamine, multivitamin, folic acid PDMP PDMP Reviewed: Not Reviewed Attestations 2 Medical Necessity Statement*: Patient to continue inpatient care today for IV antibiotics for enteritis, further evaluation of failure to thrive Coding Level of Care Code Acute Code for Chg Fwd Diagnoses Abnormal gallbladder ultrasound R93.2 Major depressive disorder, recurrent severe without psychotic features F33.2 Enterocolitis K52.9 Grief reaction with prolonged bereavement F43.29 Adult failure to thrive R62.7
--- NOTE | 2024-08-20 13:31 | MRR_ITS ---
PROCEDURE INFORMATION: Exam: MR Abdomen Without Contrast, Biliary System Exam date and time: 08/20/2024 2:59 PM Age: 63 years old Clinical indication: Abdominal tenderness. Common bile duct dilation TECHNIQUE: Imaging protocol: MR of the abdomen without contrast. Exam focused on the biliary system and pancreatic ducts. Routine 3D-MRCP images were acquired and processed without radiologist supervision. Total images: 429 submitted. COMPARISON: 1. CT abdomen pelvis w con* [id number] 08/17/24 2. Limited right upper quadrant abdomen ultrasound 08/17/[address] abdomen pelvis wo con [id number] 02/17/23 4. Chest CTA and abdomen/pelvis CT 09/08/23 5. Abdomen/pelvis CT 02/17/23 FINDINGS: Lungs: MRI is not sensitive for evaluation of lung parenchyma. However, visualized portions of lung bases demonstrate mild, crescentic air-space and curvilinear and reticular areas of dependent portions of right > left lower lobes, likely representing subsegmental atelectasis. Pleural spaces: There are trace, right > left pleural effusions. Liver: . A few, < 1.3 cm, oval and lobulated lesions with low signal on T1 and high signal on fat-sat T2 are scattered within right > left lobes. Two largest at lateral segment of left lobe superior to level of left portal vein and posterior segment of right lobe superior to level of right portal vein appear to contain mild, thin, internal septations. There is dropout of signal between Min[place] [id number] compared to in-phase gradient echo within remainder of liver, with geographic areas of relative sparing at posterior right and caudate lobes, central liver adjacent to jaxson hepatis, IVC, and gallbladder fossa, and along interlobar fissure, suggesting fatty infiltration with focal sparing. Gallbladder and biliary ducts: Gallbladder is mild-moderately distended. Shading of signal within gallbladder lumen reflects higher density bile or sludge. No wall thickening or pericholecystic fluid. Right posterior intrahepatic duct drains into left intrahepatic duct. No intrahepatic duct dilatation. Extrahepatic ducts are mildly dilated down to smoothly tapered, intrapancreatic portion of common bile duct, measuring up to 10.4 mm in maximum diameter (normal for age ??? 7 mm). No filling defects. Pancreas: Normal. No pancreatic ductal dilatation. Pancreatic duct is not adequately visualized to assess for pancreas divisum. Adrenal glands: Normal. Stomach and bowel: Visualized small bowel is grossly unremarkable. Air-liquid stool levels are scattered within visualized non and mildly dilated colon, suggesting colonic ileus or diarrhea. Intraperitoneal space: No free fluid or fluid collection. Vasculature: Visualized descending thoracic aorta, abdominal aorta, and bilateral iliac arteries are mildly tortuous. Abdominal aorta is normal in caliber. IVC is normal. Bones/joints: There is mild left upper-mid lumbar curvature or scoliosis. Inferior body and endplate of L3 vertebra contains a < 2.1 cm, lobulated, well-defined lesion with low signal on T1 and high signal on fat-sat T2, corresponding to stable, heterogeneous, predominantly sclerotic lesion on CTs, favoring benign hemangioma. Degenerative disc disease of lower thoracic spine and degenerative disc and facet disease of several levels of lumbar spine are present MR/MR MRCP [id number] IMPRESSION: 1. A few, < 1.3 cm lesions scattered within right > left lobes of liver, not definitively characterized due to absence of postGadolinium sequence, but with larger favoring mildly complex cysts and smaller favoring simple cysts. No further work-up is recommended. Diffuse fatty infiltration of remainder of liver, focal sparing at posterior right and caudate lobes, central liver adjacent to jaxson hepatis, IVC, and gallbladder fossa, and along interlobar fissure. 2. Mild-moderately distended gallbladder. Mild extrahepatic duct dilatation down to intrapancreatic portion of common bile duct, possibly reflecting ampullary stenosis or sphincter of Oddi dysfunction. No choledocholiths. 3. Colonic ileus or diarrhea.
--- NOTE | 2024-08-20 16:54 | W.PM.NPUPNS ---
Subjective NPU Subjective: 63-year-old female with a history of alcohol abuse and major depressive disorder and anorexia. Patient reports that she wishes to return home and began her life again. She has reported some improvement in appetite. She reported no side effects from the increase in Seroquel at night. Patient continued to minimize the significance of her past alcohol use and reported that she was more motivated to eat now. She stated having support from her family members. She had denied any suicidal ideation at this time. Mental Status Exam MSE Comments: This is a cachectic older white female in hospital gown with limited grooming and fleeting eye contact. No abnormal movements except for moderate psychomotor retardation. She was pleasant and cooperative to exam in mild distress. Speech was decreased in rate and diminished in volume. Mood described as better. Affect was restricted in range. Thought process was linear and logical. Thought content: Patient denied suicidal or homicidal ideation, there were no delusions reported and there was no active paranoia. She denied any auditory or visual hallucinations. Attention and concentration were improving. She is alert and oriented x person and place, and time. Insight is poor. Her judgment was limited. Her impulse control appeared poor. Vitals/I&O/Wt Last Vital Signs Temp 97.6 F 08/20/24 16:00 Pulse 87 08/20/24 16:00 Resp 19 H 08/20/24 16:00 BP 112/71 08/20/24 16:00 Pulse Ox 95 08/20/24 16:00 O2 Del Method Room Air 08/20/24 07:47 08/20/24 08/20/24 08/20/24 06:59 14:59 22:59 Intake Total 50 / 455 530 / 530 Balance 50 / 455 530 / 530 Weight last 48 hrs Weight 43.63 kg Weight 43.454 kg Data NPU 08/20/24 05:55 08/20/24 05:55 A&P Assessment and plan (1) Major depressive disorder, recurrent severe without psychotic features: (2) Alcohol abuse: Plan 63 year old with major depressive disorder, anorexia, poor appetite and with signficant immediate need to relieve refractory depression. She appears to be a good candidate for ECT which offers the most robust and rapid treatment for Major Depression. 1. Provided risks/benefits regarding ECT to patient. Risks/benefits of ECT provided to patient and family members. Patient wishes to continue with outpatient psychotherapy and medication management instead. 2. Continue remeron 30mg at night. 3. Consolidate Seroquel to 50mg at night and continue to titrate as this may provide help for depression. Family wishes that patient eventually be sent to substance abuse rehabilitation in [place] for further treatment which appears appropriate if patient not wishing for ECT at this time. PDMP PDMP Reviewed: Not Reviewed Attestations NPU Medical Necessity Statement*: inpatient psychiatric stay not applicable at this time. Coding Level of Care Code Acute Code for [facility] Fwd Diagnoses Major depressive disorder, recurrent severe without psychotic features F33.2 Alcohol abuse F10.10
[2024-08-20] MEDS: quetiapine 25 mg Tablet 50 MG PO (20:18)
[2024-08-20] MEDS: mirtazapine 15 mg Tablet 30 MG PO (20:18)
[2024-08-20] MEDS: MELATONIN 3 MG TABLET PO (20:19)
[2024-08-20] MEDS: LORazepam 2 mg/mL INJ 1 mL IVP (20:19)
[2024-08-20] MEDS: enoxaparin 30 mg/0.3 mL Syringe SUBCUT (22:46)
[2024-08-21 04:00] VITALS: BP 108/74; PULSE 79; RESP 14; TEMP 37; O2SAT 98
[2024-08-21] MEDS: LORazepam 2 mg/mL INJ 1 mL IVP (04:21)
[2024-08-21 04:32] LABS: Eosinophils # 0.1 10^3/uL (0.0-0.8); Eosinophils % 3.3 %; Hematocrit 28.8 % (36-47); Lymphocytes # 1.5 10^3/uL (0.8-4.8); Lymphocytes % 37.8 %; Mean Corpuscular HGB Conc 31.9 g/dL (30-55); Mean Corpuscular Hemoglobin 39.7 pg (27-33); Mean Corpuscular Volume 124.1 fl (85-98); Mean Platelet Volume 11.8 fL (7.4-10.4); Monocytes # 0.6 10^3/uL (0.2-0.9); Monocytes % 15.9 %; Neutrophils # 1.61 10^3/uL (1.8-7.7); Neutrophils % 41.5 %; Nucleated Red Blood Cells % 0 %; Platelet Count 164 10^3/cmm (157-399); Red Blood Count 2.32 10^6/uL (3.85-5.65); Red Cell Distribution Width 13.8 % (12.1-15.1); White Blood Count 3.89 10^3/uL (3.29-11.43)
[2024-08-21 04:54] LABS: Alanine Aminotransferase 23 U/L (0-33); Albumin Level 2.9 g/dL (3.5-5.2); Alkaline Phosphatase 153 U/L (35-105); Anion Gap 14.2 (5-19); Aspartate Amino Transferase 38 U/L (0-32); Blood Urea Nitrogen 4 mg/dL (8-23); Calcium 8.6 mg/dL (8.5-10.5); Carbon Dioxide 22 mmol/L (22-29); Chloride 111 mmol/L (98-107); Creatinine Clr Calc Pharmacy 49.5302; Glucose 100 mg/dL (65-115); Osmolality Calculated 293 mOsm/kg (285-295); Potassium 4.2 mmol/L (3.5-5.1); Sodium 143 mmol/L (136-145); Total Bilirubin 0.4 mg/dL (0.15-1.2); Total Protein 4.9 g/dL (6.6-8.7)
[2024-08-21] MEDS: piperacillin-tazobactam 3.375 GM in sodium chloride 0.9% (plus) 50 ML IV ×2 (06:10→14:23)
[2024-08-21 07:54] VITALS: BP 117/86; PULSE 108; RESP 14; TEMP 36.9; O2SAT 97
[2024-08-21] MEDS: thiamine 100 mg Tablet PO (09:36)
[2024-08-21] MEDS: pantoprazole DR 40 mg Tablet PO ×2 (09:36→17:44)
[2024-08-21] MEDS: nicotine 14 mg Patch 1 PATCH TRANSDERMA (09:36)
[2024-08-21] MEDS: multivitamin therapeutic Tablet 1 TAB PO (09:36)
[2024-08-21] MEDS: folic acid 1 mg Tablet PO (09:37)
[2024-08-21] MEDS: sucralfate 1 gm Tablet PO ×2 (09:37→11:51)
[2024-08-21] MEDS: LORazepam 2 mg Tablet PO (09:42)
[2024-08-21 12:53] LABS: Folate Level 9.2 ng/mL (4.8-37.3); Vitamin B12 1352 pg/mL (232-1245)
--- NOTE | 2024-08-21 13:15 | P.NPUPN_ITS ---
Subjective NPU 2 Subjective: 63-year-old female with a history of alc ohol abuse and major depressive disorder and anorexia. The patient continued to reiterate that she felt ready to return home. She reports that she would think about going to the rehabilitation facility that her family member were supporting to help with her mood and her alcohol abuse. She had reported some improved appetite. She had denied having any thoughts of hurting herself. She had admitted that when she was depressed she had significant reduction in her appetite. She reported no side effects from her medication regimen. Mental Status Exam 2 MSE Comments: This is a cachectic older white female in hospital gown with limited grooming and fleeting eye contact. No abnormal movements except for moderate psychomotor retardation. She was pleasant and cooperative to exam in mild distress. Speech was diminished in rate and diminished in volume. Mood described as okay. . Affect was restricted in range. Thought process was linear and logical. Thought content: Patient denied suicidal or homicidal ideation, there were no delusions reported and there was no active paranoia. She denied any auditory or visual hallucinations. Attention and concentration were improving. She is alert and oriented x person and place, and time. Insight is poor. Her judgment was fair. Her impulse control appeared poor. Vitals/I&O/Wt Last Vital Signs Temp 98.4 F 08/21/24 07:54 Pulse 108 H 08/21/24 07:54 Resp 14 08/21/24 07:54 BP 117/86 08/21/24 07:54 Pulse Ox 97 08/21/24 07:54 O2 Del Method Room Air 08/21/24 07:54 08/20/24 08/21/24 08/21/24 22:59 06:59 14:59 Intake Total 50 / 580 50 / 630 240 / 240 Output Total 250 / 250 Balance -200 / 330 50 / 380 240 / 240 Weight last 48 hrs Weight 43.63 kg Weight 43.63 kg Data NPU 08/21/24 04:08 08/21/24 04:08 A&P Assessment and plan (1) Major depressive disorder, recurrent severe without psychotic features: (2) Alcohol abuse: Plan 63 year old with major depressive disorder, anorexia, poor appetite and with signficant immediate need to relieve refractory depression. She appears to be a good candidate for ECT which offers the most robust and rapid treatment for Major Depression. 1. Provided risks/benefits regarding ECT to patient. Risks/benefits of ECT provided to patient and family members. Patient wishes to continue with outpatient psychotherapy and medication management instead. 2. Continue remeron 30mg at night. 3. Consolidate Seroquel to 50mg at night and continue to titrate as this may provide help for depression. Family wishes that patient eventually be sent to substance abuse rehabilitation in [place] for further treatment which appears appropriate if patient not wishing for ECT at this time. PDMP PDMP Reviewed: Not Reviewed Attestations NPU 2 Medical Necessity Statement*: inpatient psychiatric stay not applicable at this time. Coding Level of Care Code Acute Code for [facility] Fwd Diagnoses Major depressive disorder, recurrent severe without psychotic features F33.2 Alcohol abuse F10.10
[2024-08-21 15:56] VITALS: BP 125/89; PULSE 83; RESP 20; TEMP 36.7; O2SAT 98
--- NOTE | 2024-08-21 16:02 | P.PN_ITS ---
Subjective 2 Subjective: Denies pain today. Wanting to go home soon. She is emotional today. Medications: Reviewed: Yes Vitals/I&O/Wt Last Vital Signs Temp 98.1 F 08/21/24 15:56 Pulse 83 08/21/24 15:56 Resp 20 H 08/21/24 15:56 BP 125/89 08/21/24 15:56 Pulse Ox 98 08/21/24 15:56 O2 Del Method Room Air 08/21/24 15:56 08/21/24 08/21/24 08/21/24 06:59 14:59 22:59 Intake Total 50 / 630 650 / 650 Balance 50 / 380 650 / 650 Weight last 48 hrs Weight 96 lb 3 oz Weight 96 lb 3 oz Physical Exam 2 Narrative: General: Cooperative patient, tearful. HEENT: Normocephalic, Atraumatic. External ears normal. Nasal passages patent without drainage. MMM. Heart: RRR. Resp: LCTA. No respiratory distress, no use of accessory muscles. Abd: Soft, non-tender. Non-distended. Extremities: No edema. Skin: Multiple bruises and contusions on the arms. Neuro: No focal motor or sensory loss. Data 08/21/24 04:08 08/21/24 04:08 A&P Assessment and plan (1) Alcohol abuse: (2) Thrombocytopenia: (3) Hyponatremia: (4) Hypokalemia: (5) Enterocolitis: (6) Anxiety: (7) Depression: (8) Hypomagnesemia: (9) Macrocytic anemia: (10) Abnormal gallbladder ultrasound: (11) Major depressive disorder, recurrent severe without psychotic features: (12) Grief reaction with prolonged bereavement: (13) Adult failure to thrive: Plan 63 y/o F admitted for Gastritis, duodenitis, alcohol abuse, multiple electrolyte abnormalities. Continue close inpatient monitoring. Currently on Zosyn for Gastritis, duodenitis, Enteritis Continue PPI, sucralfate. She will need GI evaluation for colonoscopy and endoscopy Psychiatry has seen and evaluated. They are planning to start ECT for her depression. Family is looking to admit her into rehab and actively seeking a good fit. MRCP obtained yesterday. IMPRESSION: 1. A few, < 1.3 cm lesions scattered within right > left lobes of liver, not definitively characterized due to absence of postGadolinium sequence, but with larger favoring mildly complex cysts and smaller favoring simple cysts. No further work-up is recommended. Diffuse fatty infiltration of remainder of liver, focal sparing at posterior right and caudate lobes, central liver adjacent to jaxson hepatis, IVC, and gallbladder fossa, and along interlobar fissure. 2. Mild-moderately distended gallbladder. Mild extrahepatic duct dilatation down to intrapancreatic portion of common bile duct, possibly reflecting ampullary stenosis or sphincter of Oddi dysfunction. No choledocholiths. 3. Colonic ileus or diarrhea. For Macrocytic anemia, will check B12 and folate. Hemoglobin was at 9.20. Her MCV was 124.1. Continue CINE protocol for alcohol withdrawal. Continue vitamin Supplementation for deficiencies. Magnesium is currently within normal range. Potassium has improved to 4.2 and is stable. Continue PT OT evaluation and treat. Patient is fairly stable. Her vitals show her blood pressure is well- controlled. Pulse is 83. She is satting at 90% on room air. Based on her current labs and vitals, she can likely discharge home tomorrow. Current plan is for her to stay with her daughter and son-in-law until she is able to be placed into a rehabilitation facility. They are currently looking at different facilities, and what would be the best fit. Continue current medications per psychiatry recommendations. Code Status: Full IVF: NS at 30 DVT PPx: Lovenox GI PPx: Pantoprazole, Carafate ABx: Zosyn Diet: Regular Discharge plan: Home, with plan to seek a rehab facility. PDMP PDMP Reviewed: Not Reviewed Attestations 2 Medical Necessity Statement*: Patient to continue inpatient care today for IV antibiotics for enteritis, further evaluation of failure to thrive Coding Level of Care Code Acute Code for [facility] Fwd Moderate MDM includes number and complexity of problems actively addressed during encounter, amount and/or complexity of data reviewed/ordered and described risk of complication, morbidity or mortality of management as documented Diagnoses Alcohol abuse F10.10 Thrombocytopenia D69.6 Hyponatremia E87.1 Hypokalemia E87.6 Enterocolitis K52.9 Anxiety F41.9 Moderate episode of recurrent major depressive disorder F33.1 Depression Type: major depressive disorder Major depression recurrence: recurrent Active/Remission status: currently active Major depression episode severity: moderate Hypomagnesemia E83.42 Macrocytic anemia D53.9 Abnormal gallbladder ultrasound R93.2 Major depressive disorder, recurrent severe without psychotic features F33.2 Grief reaction with prolonged bereavement F43.29 Adult failure to thrive R62.7
[2024-08-21] MEDS: sucralfate 1 gm/10 mL Oral Liq UDC PO (17:44)
[2024-08-21 19:54] VITALS: BP 106/63; PULSE 88; RESP 14; TEMP 36.9
[2024-08-21] MEDS: quetiapine 25 mg Tablet 50 MG PO (21:00)
[2024-08-21] MEDS: mirtazapine 15 mg Tablet 30 MG PO (21:00)
[2024-08-21] MEDS: MELATONIN 3 MG TABLET PO (21:01)
[2024-08-21] MEDS: enoxaparin 30 mg/0.3 mL Syringe SUBCUT (23:41)
[2024-08-22] VITALS: BP 112/77; PULSE 88; RESP 16; TEMP 36.5; O2SAT 97
--- NOTE | 2024-08-22 01:03 | PC.NURSE ---
Around 1999 patient asked if she was leaving today. Nurse notified patient that the plan is to discharge tomorrow per the doctors note. Patient then proceeded to get pajamas on after getting back from bathroom and taking all monitoring devices off. When ask what she was doing patient stated I have to go, I just need to be home. Its time. When asked what patient meant by its time she just told this nurse its time for her to go home. Patient denies feeling suicidal and says she can take care of herself at home. Educated patient on the importance of staying. Dr. Hernández notified of patient wanting to discharge, per MD ask patient if she needs something for sleep or anxiety. This nurse talked to son-in-law karina on the phone and explained situation. The PRN ativan was given and patient agreed to stay. IV access was lost during this situation and patient is worked up so unable to get IV access at this time and will attempt later. Notified Dr. Hernández that due to loss of IV access and patient being worked up, the IV abx were not given.
[2024-08-22] MEDS: LORazepam 2 mg Tablet PO (03:46)
[2024-08-22 03:53] VITALS: BP 106/74; PULSE 94; RESP 16; TEMP 36.5; O2SAT 100
[2024-08-22 05:26] LABS: Basophils # 0.1 10^3/uL (0.0-0.1); Basophils % 1.3 %; Eosinophils # 0.2 10^3/uL (0.0-0.8); Eosinophils % 4.4 %; Hematocrit 29.2 % (36-47); Lymphocytes # 1.8 10^3/uL (0.8-4.8); Lymphocytes % 47.4 %; Mean Corpuscular HGB Conc 31.2 g/dL (30-55); Mean Corpuscular Hemoglobin 40.4 pg (27-33); Mean Corpuscular Volume 129.8 fl (85-98); Mean Platelet Volume 12.4 fL (7.4-10.4); Monocytes # 0.6 10^3/uL (0.2-0.9); Monocytes % 14.8 %; Neutrophils # 1.22 10^3/uL (1.8-7.7); Neutrophils % 31.8 %; Nucleated Red Blood Cells % 0 %; Platelet Count 178 10^3/cmm (157-399); Red Blood Count 2.25 10^6/uL (3.85-5.65); Red Cell Distribution Width 14.2 % (12.1-15.1); White Blood Count 3.84 10^3/uL (3.29-11.43)
[2024-08-22 07:18] LABS: Alanine Aminotransferase 21 U/L (0-33); Albumin Level 2.6 g/dL (3.5-5.2); Alkaline Phosphatase 124 U/L (35-105); Anion Gap 12.2 (5-19); Aspartate Amino Transferase 33 U/L (0-32); Blood Urea Nitrogen 5 mg/dL (8-23); Calcium 8.5 mg/dL (8.5-10.5); Carbon Dioxide 22 mmol/L (22-29); Chloride 110 mmol/L (98-107); Creatinine Clr Calc Pharmacy 48.4079; Glucose 87 mg/dL (65-115); Osmolality Calculated 287 mOsm/kg (285-295); Potassium 4.2 mmol/L (3.5-5.1); Sodium 140 mmol/L (136-145); Total Bilirubin 0.4 mg/dL (0.15-1.2); Total Protein 4.6 g/dL (6.6-8.7)
[2024-08-22 08:00] VITALS: BP 125/83; PULSE 123; RESP 20; TEMP 36.6; O2SAT 99
--- NOTE | 2024-08-22 08:23 | PM.DCS ---
Discharge Providers Date of Admission: 08/18/24 15:22 Date of Discharge: August 22, 2024 Attending Provider at Admission: Asaf Brady Attending Provider at Discharge: Rosana Rashid MD Primary Care Provider: Davey Scott MD Diagnoses at Discharge Discharge Diagnosis (1) Alcohol abuse: Status: Acute (2) Thrombocytopenia: Status: Acute (3) Hyponatremia: Status: Acute (4) Hypokalemia: Status: Acute (5) Enterocolitis: Status: Acute (6) Anxiety: Status: Acute (7) Depression: Status: Acute Qualifiers: Active/Remission status: currently active Depression Type: major depressive disorder Major depression episode severity: moderate Major depression recurrence: recurrent Qualified Code(s): F33.1 - Major depressive disorder, recurrent, moderate (8) Hypomagnesemia: Status: Acute (9) Macrocytic anemia: Status: Acute (10) Abnormal gallbladder ultrasound: Status: Acute (11) Major depressive disorder, recurrent severe without psychotic features: Status: Acute (12) Grief reaction with prolonged bereavement: Status: Acute (13) Adult failure to thrive: Status: Acute Reason for Visit Reason for Visit: no appetite (14xday) Brief History: Alicia Morse is a 63 year old female with a history of alcohol abuse, depression related to her 's passing, ho Wernicke's encephalopathy 2023 admitted to the hospital on 08/17 with difficulty eating and drinking, with some water intake but minimal food.labs revealed significant electrolyte deficiencies (low potassium, low magnesium, low sodium), dehydration, and low platelets. CT abdomen pelvis noted prominent mucosal enhancement with distended small bowel suspicious of enteritis. Evidence of gastritis and duodenitis. Marked hepatomegaly with fatty infiltration and small right hepatic cyst. She received Zosyn empirically. MRCP was perfromed which showed Mild extrahepatic duct dilatation down to intrapancreatic portion of common bile duct, possibly reflecting ampullary stenosis or sphincter of Oddi dysfunction. No choledocholiths. She was referred to GI at [facility] for further f/up. Counselled extensvely to quit alcohol. Rehab options were provided, Psychiatry service was consulted, ECT recommended but patient and family declined. She was monitored for alcohol withdrawal with CIWA monitoring and did not show any signs of the same at discharge. Physical Exam Narrative: General: No acute distress, AO x3 HEENT: PERRLA, pupils bilaterally equal and reactive, pallors not present Chest: Normal vesicular breath sounds, no added sounds, equal good air entry bilaterally CVS: S1-S2 regular, no murmurs, no tachycardia, no gallops, no rubs Abdomen: Soft, nontender, no organomegaly, bowel sounds present Neuro: No focal deficits, no facial deformity, AO x3, power 5/5 in all limbs Discharge Data Studies Completed and Pending Completed Studies During Hospitalization Category Date Time Status CT abdomen pelvis w con* [id number] Stat Cat Scan 08/17/24 10:20 Completed MR MRCP [id number] Routine MRI 08/20/24 13:31 Completed US liver [id number] Routine Ultrasound 08/17/24 22:00 Completed Radiology Impressions Abdomen/Pelvis CT 08/17/24 10:20 IMPRESSION: 1. Prominent mucosal enhancement with fluid distended small bowel suspicious for small bowel enteritis. 2. Evidence of gastritis and duodenitis. 3. Marked hepatomegaly fatty infiltration. Small RIGHT hepatic cyst. 4. No other acute findings. Liver Ultrasound 08/17/24 22:00 IMPRESSION: 1. Mildly elongated gallbladder with a large amount of layering sludge. Mild wall thickening with no pericholecystic fluid. Sludge within the gallbladder may be due to prolonged fasting state. 2. Common bile duct is dilated to 0.9 cm. Consider evaluation by MRCP. Cholangiopancreatography MRI 08/20/24 13:31 IMPRESSION: 1. A few, < 1.3 cm lesions scattered within right > left lobes of liver, not definitively characterized due to absence of postGadolinium sequence, but with larger favoring mildly complex cysts and smaller favoring simple cysts. No further work-up is recommended. Diffuse fatty infiltration of remainder of liver, focal sparing at posterior right and caudate lobes, central liver adjacent to jaxson hepatis, IVC, and gallbladder fossa, and along interlobar fissure. 2. Mild-moderately distended gallbladder. Mild extrahepatic duct dilatation down to intrapancreatic portion of common bile duct, possibly reflecting ampullary stenosis or sphincter of Oddi dysfunction. No choledocholiths. 3. Colonic ileus or diarrhea. Laboratory Results WBC 3.84 10^3/uL (3.29-11.43) 08/22/24 04:55 RBC 2.25 10^6/uL (3.85-5.65) L 08/22/24 04:55 Hgb 9.10 g/dL (11.27-16.99) L 08/22/24 04:55 Hct 29.2 % (36-47) L 08/22/24 04:55 MCV 129.8 fl (85-98) H 08/22/24 04:55 MCH 40.4 pg (27-33) H 08/22/24 04:55 MCHC 31.2 g/dL (30-55) 08/22/24 04:55 RDW 14.2 % (12.1-15.1) 08/22/24 04:55 Plt Count 178 10^3/cmm (157-399) 08/22/24 04:55 MPV 12.4 fL (7.4-10.4) H 08/22/24 04:55 Neut % (Auto) 31.8 % 08/22/24 04:55 Lymph % (Auto) 47.4 % 08/22/24 04:55 [place] % (Auto) 14.8 % 08/22/24 04:55 Eos % (Auto) 4.4 % 08/22/24 04:55 Baso % (Auto) 1.3 % 08/22/24 04:55 Neut # (Auto) 1.22 10^3/uL (1.8-7.7) L 08/22/24 04:55 Lymph # (Auto) 1.8 10^3/uL (0.8-4.8) 08/22/24 04:55 [place] # (Auto) 0.6 10^3/uL (0.2-0.9) 08/22/24 04:55 Eos # (Auto) 0.2 10^3/uL (0.0-0.8) 08/22/24 04:55 Baso # (Auto) 0.1 10^3/uL (0.0-0.1) 08/22/24 04:55 Nucleated RBC % (auto) 0 % 08/22/24 04:55 Nucleated RBCs # 0.0 /100WBC 08/22/24 04:55 Sodium 140 mmol/L (136-145) 08/22/24 06:41 Potassium 4.2 mmol/L (3.5-5.1) 08/22/24 06:41 Chloride 110 mmol/L (98-107) H 08/22/24 06:41 Carbon Dioxide 22 mmol/L (22-29) 08/22/24 06:41 Anion Gap 12.2 (5-19) 08/22/24 06:41 BUN 5 mg/dL (8-23) L 08/22/24 06:41 Creatinine 0.7 mg/dL (0.5-0.9) 08/22/24 06:41 GFR Calculation 84.0 mL/min (90-130) L 08/22/24 06:41 Glucose 87 mg/dL (65-115) 08/22/24 06:41 Calculated Osmolality 287 mOsm/kg (285-295) 08/22/24 06:41 Lactate 0.8 mmol/L (0.5-2.2) 08/17/24 22:40 Calcium 8.5 mg/dL (8.5-10.5) 08/22/24 06:41 Phosphorus 2.8 mg/dL (2.5-4.5) 08/20/24 05:55 Magnesium 1.7 mg/dL (1.7-2.3) 08/20/24 05:55 Total Bilirubin 0.4 mg/dL (0.15-1.2) 08/22/24 06:41 AST 33 U/L (0-32) H 08/22/24 06:41 ALT 21 U/L (0-33) 08/22/24 06:41 Alkaline Phosphatase 124 U/L (35-105) H 08/22/24 06:41 Ammonia 23 umol/L (11-51) 08/17/24 09:42 Creatine Kinase 49 U/L (26-192) 08/18/24 05:21 Troponin T Baseline 15 ng/L (0-10) H 08/17/24 09:42 Troponin T 120 Minute 13.59 ng/L (0-10) H 08/17/24 11:56 Delta Troponin T -1.41 ABS# (0-10) L 08/17/24 11:56 Troponin T Hi Sens 6Hr 15.05 ng/L (0-10) H 08/17/24 15:36 Troponin T Hi Sens 6Hr Delta 0.05 ng/L (0-12) 08/17/24 15:36 Total Protein 4.6 g/dL (6.6-8.7) L 08/22/24 06:41 Albumin 2.6 g/dL (3.5-5.2) L 08/22/24 06:41 Globulin 2.0 g/dL (1.3-4.6) 08/22/24 06:41 Lipase 39 U/L (13-60) 08/17/24 09:42 Vitamin B12 1352 pg/mL (232-1245) H 08/21/24 04:08 Folate 9.2 ng/mL (4.8-37.3) 08/21/24 04:08 TSH 3.35 uIU/mL (0.27-4.20) 08/17/24 22:40 Urine Color Yellow (Yellow) 08/17/24 11:44 Urine Appearance Clear (CLEAR) 08/17/24 11:44 Urine pH 6.5 (5-7) 08/17/24 11:44 Ur Specific [place] 1.003 (1.005-1.030) L 08/17/24 11:44 Urine Protein Negative (Negative) 08/17/24 11:44 Urine Glucose (UA) Negative (Normal) 08/17/24 11:44 Urine Ketones Negative (Negative) 08/17/24 11:44 Urine Blood Negative (Negative) 08/17/24 11:44 Urine Nitrate Negative (Negative) 08/17/24 11:44 Urine Bilirubin Negative (Negative) 08/17/24 11:44 Urine Urobilinogen 1.0 mg/dL (Negative) 08/17/24 11:44 Ur Leukocyte Esterase Negative (Negative) 08/17/24 11:44 Urine RBC 0-2 /hpf (0-2) 08/17/24 11:44 Urine WBC 0-5 /hpf (0-5) 08/17/24 11:44 Ur Squamous Epith Cells 0-5 /hpf (0-5) 08/17/24 11:44 Amorphous Sediment Not Reportable 08/17/24 11:44 Urine Bacteria None seen /hpf (NONE) 08/17/24 11:44 Hyaline Casts 0-4 /lpf H 08/17/24 11:44 Ethyl Alcohol < 10 mg/dL (0-10) 08/17/24 09:42 Vitals Last Vital Signs Temp 97.7 F 08/22/24 03:53 Pulse 94 08/22/24 03:53 Resp 16 08/22/24 03:53 BP 106/74 08/22/24 03:53 Pulse Ox 100 08/22/24 03:53 O2 Del Method Room Air 08/22/24 03:53 Discharge Plan Discharge Patient Disposition: Home Condition: Stable Prescriptions: New thiamine mononitrate (vit B1) [Vitamin B-1 (mononitrate)] 100 mg Tablet 100 mg PO DAILY 30 Days Qty: 30 0RF Continued mirtazapine 15 mg Tablet 15 mg PO BEDTIME Qty: 30 0RF pantoprazole [Protonix] 40 mg tablet,delayed release (DR/EC) 40 mg PO BID Qty: 60 0RF Changed quetiapine 25 mg Tablet 50 mg PO BEDTIME Qty: 60 0RF Discharge Orders: Discharge Order (Routine); Ordered 08/22/24 Ordered By: Rosana Rashid Referrals: [facility] [Outside] - 7-10 days Referral Note: Paperwork for a new patient referral has been sen to clinic. If you have nt heard from the clinic within a reasonable amount time. Please have your PCP clinic follow-up as well. Davey Scott MD [Primary Care Provider, [facility]] - 08/26/24 9:15 am Discharge Diet: Usual diet Discharge Activity: Resume usual activity Patient Instructions: Generalized Anxiety Disorder, Thiamine (By mouth) ([facility] Vitamin B1, Nature's..., Failure to Thrive (DC), Depression (DC), Abuse of Alcohol (DC), Thrombocytopenia (DC), Opioid Safety Discharge Attestations Time Spent in Discharge Care*: greater than 30 min Status at Discharge: Cognitive status at discharge: cognitively intact, Behavioral status at discharge: cooperative, Quality Metrics Clinical Quality Measures [ No reported AMI, CVA or VTE this stay] Coding Level of Care Code Acute Code for Chg Fwd Diagnoses Alcohol abuse F10.10 Thrombocytopenia D69.6 Hyponatremia E87.1 Hypokalemia E87.6 Enterocolitis K52.9 Anxiety F41.9 Moderate episode of recurrent major depressive disorder F33.1 Active/Remission status: currently active Depression Type: major depressive disorder Major depression episode severity: moderate Major depression recurrence: recurrent Hypomagnesemia E83.42 Macrocytic anemia D53.9 Abnormal gallbladder ultrasound R93.2 Major depressive disorder, recurrent severe without psychotic features F33.2 Grief reaction with prolonged bereavement F43.29 Adult failure to thrive R62.7
[2024-08-22] MEDS: thiamine 100 mg Tablet PO (09:03)
[2024-08-22] MEDS: sucralfate 1 gm/10 mL Oral Liq UDC PO (09:03)
[2024-08-22] MEDS: folic acid 1 mg Tablet PO (09:04)
[2024-08-22] MEDS: multivitamin therapeutic Tablet 1 TAB PO (09:04)
[2024-08-22] MEDS: pantoprazole DR 40 mg Tablet PO (09:04)
--- NOTE | 2024-08-22 09:30 | PC.NURSE ---
New patient Paperwork has been faxed to [facility] to review and call patient.
[2024-08-22 10:04] VITALS: BP 123/83; PULSE 90; O2SAT 92
--- NOTE | 2024-08-22 12:30 | PC.SOCIAL ---
IMM Update pg 2 of IMM Updated and reviewed w/ patient. Copy provided and copy dated, initialed and placed in chart.
== END 2024-08-22 10:20 | disposition home or self-care (01) | DRG 885 ==
LOC: ER 09:35 → ER IP 14:25 → CSU 21:45
PROVIDERS: Family Medicine; Student in an Organized Health Care Education/Training Program; Admitting Provider Internal Medicine; Emergency Provider Family Medicine; PCP Family Medicine; Visit Provider Student in an Organized Health Care Education/Training Program
DX: F33.2 Major depressive disorder, recurrent severe without psychotic features (principal); Z68.1 Body mass index [BMI] 19.9 or less, adult; E87.1 Hypo-osmolality and hyponatremia; E87.20 Acidosis, unspecified; E44.0 Moderate protein-calorie malnutrition; F43.81 Prolonged grief disorder; F10.20 Alcohol dependence, uncomplicated; Y90.0 Blood alcohol level of less than 20 mg/100 ml; E78.5 Hyperlipidemia, unspecified; F17.210 Nicotine dependence, cigarettes, uncomplicated; E87.6 Hypokalemia; R62.7 Adult failure to thrive; E83.42 Hypomagnesemia; D69.6 Thrombocytopenia, unspecified; E86.0 Dehydration; K29.80 Duodenitis without bleeding; K76.0 Fatty (change of) liver, not elsewhere classified; R16.0 Hepatomegaly, not elsewhere classified; K76.89 Other specified diseases of liver; K52.9 Noninfective gastroenteritis and colitis, unspecified; M62.84 Sarcopenia; K86.89 Other specified diseases of pancreas; K83.8 Other specified diseases of biliary tract; Z63.4 Disappearance and death of family member; Z79.899 Other long term (current) drug therapy
CPT/HCPCS: 36415; 74177; 74181; 76705; 80053; 80307; 81001; 82140; 82550; 82607; 82746; 83605; 83690; 83735; 84100; 84443; 84484; 85025; 93005; 96365; 96366; 96367; 96372; 96375; 96376; 97161; 99285; A9270; G0378; J1650; J2060; J2405; J2543; J3411; J3475; J3480; J7030; J7040; J9999